=== PATIENT | male | born 1940 | race Caucasian/White ===

== ENCOUNTER 2019-06-04 10:02 | Emergency (ER) | payer MEDICARE, OTHER, SELFPAY ==
--- NOTE | ~2019-06-04 | CT_ITS ---
EXAMINATION: CT lumbar spine wo [facility] EXAM DATE: 06/04/2019 12:07 INDICATION: Fall, right hip and low back pain. TECHNIQUE: Spiral CT lumbar spine was performed without contrast. Axial, coronal and sagittal images were reviewed. The dose-length product (DLP) for this examination was 202.74 mGy-cm. The exposure w as tailored according to patient size (auto mA exposure control), and iterative reconstruction (ASIR) was used as additional dose reduction technique. There is no prior study for comparison. FINDINGS: There is moderate lumbar dextroscoliosis. There is about 8 mm right lateral subluxation L3 on L4. There is moderate to severe disc disease from L1 through L4, moderate at L4-5. No spondylolys is. There are no bony erosions identified. Advanced lumbar facet arthropathy. Sacroiliac joints are i ntact. There is no evidence of acute lumbar fracture or spondylolysis. There is no disc space widen ing or traumatic vertebral body subluxation suspected. Paraspinal soft tissue is unremarkable. A det paulino level by level evaluation of spondylosis can be added as addendum if requested. IMPRESSION: 1. No acute lumbar fracture. 2. Moderate dextroscoliosis. 3. Advanced spondylosis. Reviewed, dictated and finalized at location A. TH SANITARIAN
--- NOTE | ~2019-06-04 | XR_ITS ---
EXAMINATION: XR hip BI 2V w AP pelvis EXAM DATE: 06/04/2019 10:56 INDICATION: Multiple falls at home, right hip worse than left pain. TECHNIQUE: Frontal projection pelvis. Frontal projection right hip, frontal projection left hip, frog -leg projection left hip, crosstable lateral projection right hip. There are no prior studies for com parison. FINDINGS: There are no acute pelvic or hip fractures or dislocations identified. There is no subcuta neous gas. The soft tissue is unremarkable. There are no radiopaque foreign bodies. There is mode rate symmetric bilateral hip primary osteoarthritis. IMPRESSION: No acute osseous findings. Reviewed, dictated and finalized at location A. [facility] IMPRESSION: No acute osseous findings.
[2019-06-04 10:02] VITALS: BP 147/76; PULSE 79; RESP 18; TEMP 36.8; O2SAT 99
--- NOTE | 2019-06-04 10:09 | ED.GENADULT ---
HPI - General Adult General Chief complaint: Extremity Injury, Lower Stated complaint: hip pain Time Seen by Provider: 06/04/19 10:03 Source: patient Mode of arrival: ambulatory Limitations: no limitations History of Present Illness HPI narrative: Patient is a 78-year-old male who presents to emergency department for evaluation of injuries related to a ground-level fall that occurred on Tuesday was ambulating with his walker when he fell to his side and has since had moderate aching pain to the right hip worse with ambulation activity and movement. Patient denies head injury syncope loss of consciousness. Patient notes he has skin tears to the left upper extremity with minimal pain at this location. Patient notes that the pain radiates down to the level of the knee from the right hip. Patient notes he has been able to bear weight with pain since the fall. Patient denies any head injury or other complaints at this time and on arrival per EMS is in the room in no distress Related Data Home Medications Medication Instructions Recorded Confirmed PreserVision AREDS-2 2 tablet PO BID 04/29/19 05/22/19 alprazolam 0.5 mg PO TID 04/29/19 05/22/19 levothyroxine 100 mcg PO DAILY 04/29/19 05/22/19 losartan 100 mg PO DAILY 04/29/19 05/22/19 pravastatin 10 mg PO DAILY 04/29/19 05/22/19 Allergies Allergy/AdvReac Type Severity Reaction Status Date / Time 1. ANTIHISTAMINES Allergy Unknown Unknown Uncoded 06/04/19 10:07 NKFA Allergy Unknown Unknown Uncoded 06/04/19 10:07 Review of Systems Review of Systems: All systems reviewed & are unremarkable except as noted in HPI and below PMFSH Family History Family History Mother Lung cancer Father Heart disease Sibling Lung cancer Brain cancer Social History Social History Social History: The patient lives with his of 52 years in [place]. 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 He continues to smoke 1 pack of cigarettes per day for the last 62 years. He drinks 2-3 shots of hard liquor every night. He denies any illicit substance use. Primary care physician: Dr. Nicole Stewart Code status: Per EMR full code Smoking packs per day: 1 Smoking cigarettes per day: 20.0 Years smoked: 62 Smoking pack-years: 62.00 Smoking status: Current every day smoker Tobacco type: cigarettes Alcohol intake: current Drinks per week: 7 Substance use: never Gender identity (if verbalized by the patient): Male Spiritual care concerns: No Agree to blood products: Yes Exam Narrative: Exam Narrative: GENERAL: Well-appearing, well-nourished, and in no acute distress. HEAD: Normocephalic, atraumatic. EYES: PERRLA and EOMI. ENT: Nares clear, no rhinorrhea or epistaxis. Mucous membranes moist. Oropharynx without tonsillar hypertrophy exudate or other lesions. NECK: Supple. No adenopathy or masses. CHEST: Clear to auscultation. No respiratory distress. No wheezes rales or rhonchi HEART: Regular rate and rhythm. No murmur heard. Normal peripheral pulses. ABDOMEN: Soft, nontender, nondistended EXTREMITIES: Tenderness of the right hip pelvis palpated and stable. No midline cervical thoracic or lumbar tenderness SKIN: Warm, dry, no rash. Superficial skin tears to the left upper extremity at the level of the elbow NEURO: No focal deficits. Alert and oriented x3. Cranial nerves II through XII grossly intact. Neurovascularly intact PSYCH: Normal mood and affect. Course Course Emergency Course: Patient and family in the room aware of case findings treatment plan and diagnosis agreeing to plan for hospice at home patient was evaluated and set up by case work and hospice patient had PT OT eval in the emergency department Vital Signs Vital signs: Vital Signs Temperature 98.3 F 06/04/19 10:02 Pulse Rate 79 06/04/19 10:02 Respiratory Rate 18 06/04/19 10:
[2019-06-04 11:52] LABS: Basophils Percent Auto 0.2 % (0.2-1.2); Eosinophils Percent Auto 0.3 % (0-4.4); Hematocrit 37.5 % (42.0-52.0); Hemoglobin 12.4 g/dL (14.0-18.0); Immature Granulocyte Absolute 0.05 K/mm3 (0.00-0.031); Immature Granulocyte Percent A 0.5 % (0-0.5); Lymphocytes Absolute Auto 1.04 K/mm3 (0.9-3.2); Lymphocytes Percent Auto 9.4 % (18.3-44.2); Mean Corpuscular HGB Conc 33.1 g/dl (32-36); Mean Corpuscular Hemoglobin 32.8 pg (26-34); Mean Corpuscular Volume 99.2 fl (80-100); Monocytes Absolute Auto 1.5 K/mm3 (0.1-0.6); Monocytes Percent Auto 13.2 % (2.6-8.5); Neutrophils Absolute Auto 8.5 K/mm3 (1.3-6.7); Neutrophils Percent Auto 76.4 % (45.5-73.1); Platelet Count Result 256 k/mm3 (150-375); Red Blood Count 3.78 M/mm3 (4.6-6.20); Red Cell Distribution Width 13.1 % (11.5-14.5); White Blood Count 11.1 K/mm3 (4.5-10.0)
[2019-06-04 12:02] LABS: Blood Urea Nitrogen 20 mg/dL (9-20); Calcium 9.5 mg/dL (8.4-10.2); Carbon Dioxide 25 mmol/L (22-30); Chloride 102 mmol/L (98-107); Estimated Glomerular Filt Rate > 60; Glucose 127 mg/dL (75-110); Potassium 3.9 mmol/L (3.4-5.0); Sodium 136 mmol/L (137-145)
[2019-06-04 12:09] VITALS: BP 113/50; PULSE 96; RESP 18; O2SAT 74
--- NOTE | 2019-06-04 12:19 | PC.NURSE ---
pt cannot get to sitting position without severe pain to rt groin/rt hip area. pt reports only minor discomfort when at rest
--- NOTE | 2019-06-04 12:26 | PC.NURSE ---
Contacted Care Coordination for placement of [facility]. Family requesting placement.
[2019-06-04 12:38] LABS: Add Urine Microscopic? YES; Appearance Urine Clear (Clear); Bacteria Urine Trace /hpf; Bilirubin Urine Negative (Negative); Blood Urine Negative (Negative); Color Urine Amber (Yellow); Glucose Urine UA Negative (Negative); Ketones Urine Negative (Negative); Leukocyte Esterase Ur Negative LEU/UL (Negative); Mucus Urine Rare /lpf; Nitrate Urine Negative (Negative); Protein Urine 1+ mg/dL (Negative); Specific Grav Ur 1.026 (1.001-1.035); WBC Urine 0-3 /hpf
--- NOTE | 2019-06-04 15:36 | PC.NURSE ---
Hospice rep has arrived at this time.
--- NOTE | 2019-06-04 16:57 | PC.NURSE ---
Called [facility] to transport pt home. ETA [id number]. Trip# [id number]
[2019-06-04 17:51] VITALS: BP 116/60; PULSE 74; RESP 18; O2SAT 96
== END 2019-06-04 17:53 | disposition hospice, home (50) ==
PROVIDERS: Emergency Medicine Emergency Medical Services; Emergency Provider Family Medicine; PCP Family Medicine Adolescent Medicine
DX: M25.551 Pain in right hip (principal); F17.210 Nicotine dependence, cigarettes, uncomplicated; M47.816 Spondylosis without myelopathy or radiculopathy, lumbar region; W18.39XA Other fall on same level, initial encounter
CPT/HCPCS: 36415; 72131; 73521; 80048; 81001; 85025; 97161; 97165; 99284; A9270

== ENCOUNTER 2019-06-08 19:32 | HOS | payer OTHER, MEDICARE, SELFPAY ==
[2019-06-08 19:30] VITALS: BP 129/67; PULSE 77; RESP 18; TEMP 37.4; O2SAT 98; BMI 19.1
[2019-06-08 22:36] VITALS: PULSE 68
[2019-06-08] MEDS: GABAPENTIN 300 MG CAPSULE PO (22:36)
[2019-06-08] MEDS: ALPRAZOLAM 0.5 MG TABLET PO (22:36)
[2019-06-08] MEDS: METOPROLOL TARTRATE 25 MG TABLET PO (22:36)
[2019-06-08] MEDS: BISACODYL 5 MG TABLET EC 10 MG PO (22:36)
[2019-06-08] MEDS: APIXABAN 2.5 MG TABLET PO (22:37)
[2019-06-08] MEDS: LACTULOSE 20 GM/30 ML UDC 40 GM PO (22:37)
[2019-06-08] MEDS: SENNOSIDES 8.6 MG TABLET 17.2 MG PO (22:37)
[2019-06-08] MEDS: OPTI-GEN TAB 1 TABLET PO (22:38)
[2019-06-08] MEDS: METHYLNALTREXONE 12 MG/0.6 ML VIAL SUB-Q (22:38)
[2019-06-08] MEDS: KETOROLAC 30 MG/ML VIAL (*BKC) 60 MG IV PUSH (22:39)
[2019-06-09] MEDS: GABAPENTIN 300 MG CAPSULE PO ×2 (05:39→14:01)
[2019-06-09] MEDS: ALPRAZOLAM 0.5 MG TABLET PO ×2 (05:39→14:01)
[2019-06-09] MEDS: LEVOTHYROXINE SODIUM 100 MCG TABLET PO (05:39)
--- NOTE | 2019-06-09 08:40 | PM.IMHP ---
H&P: HPI History of Present Illness Chief complaint: [facility], Intrac. Hip Pain, COPD Narrative: Edin Nguyen is a 78 year old male was recently admitted to hospice after being hospitalized for pneumonia and mycobacteria sputum. He was experiencing pain and dyspnea. He has lost significant amount of weight over the last few years. Unknown how much in the last 6-12 months but thinks is considerable period he eats only 1 meal a day and most. He is much weaker than he had been. About 6 days ago he developed pain in his right hip and buttock region. Worse with movement or weight-bearing. The gradually improved but recurred on the left side. No tingling or numbness. Severe pain with any movement her weight-bearing. Unable to get out of bed. Had not had a bowel movement for least 5 days. No nausea or vomiting. No fevers or chills. No abnormal bleeding. Appetite worse. Review of Systems Review of Systems: All systems reviewed & are unremarkable except as noted in HPI and below PMFSH Past Medical History Medical History (Updated 06/09/19 @ 09:00 by Chris Elizalde MD) Arthritis Depression with anxiety Essential hypertension Hypothyroid Osteoarthritis involving multiple joints on both sides of body Osteopenia Noted on prior x-rays Paroxysmal atrial fibrillation Pneumonia Surgical History Surgical History History of cholecystectomy History of colonoscopy with polypectomy Initial colonoscopy with polypectomy in 2002, repeat colonoscopy in 2007 without evidence of colon polyps but had diverticulosis Hx of cervical spine surgery C5-6 and 7 spinal fusion. 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 Family History Family History Mother Lung cancer Father Heart disease Sibling Lung cancer Brain cancer Social History Social History (Updated 06/09/19 @ 09:01 by Chris Elizalde MD) Social History: Resides with his Smoking packs per day: 1 Smoking cigarettes per day: 20.0 Years smoked: 62 Smoking pack-years: 62.00 Smoking status: Current every day smoker Tobacco type: cigarettes Alcohol intake: current Drinks per week: 7 Substance use: never Gender identity (if verbalized by the patient): Male Spiritual care concerns: No Agree to blood products: Yes Meds Home Medications and Allergies Home Medications Medication Instructions Recorded Confirmed Type PreserVision AREDS-2 2 tablet PO BID 04/29/19 05/22/19 History alprazolam 0.5 mg PO TID 04/29/19 05/22/19 History levothyroxine 100 mcg PO DAILY 04/29/19 05/22/19 History losartan 100 mg PO DAILY 04/29/19 05/22/19 History pravastatin 10 mg PO DAILY 04/29/19 05/22/19 History amiodarone [Pacerone] 200 mg PO BID 30 Days #60 tablet 05/04/19 05/22/19 Rx apixaban [Eliquis] 2.5 mg PO Q12HR 30 Days #60 tablet 05/04/19 05/22/19 Rx magnesium oxide 400 mg PO QAM 30 Days #30 tablet 05/04/19 05/22/19 Rx metoprolol tartrate 25 mg PO Q12HR 30 Days #60 tablet 05/04/19 05/22/19 Rx Allergies Allergy/AdvReac Type Severity Reaction Status Date / Time 1. ANTIHISTAMINES Allergy Unknown Unknown Uncoded 06/04/19 10:07 NKFA Allergy Unknown Unknown Uncoded 06/04/19 10:07 Vital Signs Vital Signs - 24 hr 06/08/19 19:30 06/08/19 22:36 Temperature 99.4 F Pulse Rate 77 68 Respiratory Rate 18 Blood Pressure 129/67 Pulse Oximetry 98 Exam Narrative: Exam Narrative: SKIN: Soft the left heel. Large vesicle with ecchymosis and softening of the right heel. HEENT: EOMI, PERRL, pharyngeal mucosa pink and intact NECK: No JVD, adenopathy, or thyromegaly CHEST: Increased anterior-posterior diameter with diminished breath sounds throughout. HEART: NL S1/S2, regular, no murmur ABDOMEN: BS+, soft, nontender, no mass, no bruits EXTREMITIES: No cyanosis, edema, or clubbing NEUROLOGI
[2019-06-09 09:06] VITALS: BP 111/60; PULSE 68; RESP 16; O2SAT 98
[2019-06-09] MEDS: NICOTINE (*PBKC) 21 MG PATCH 1 PATCH TRANSDERM (09:09)
[2019-06-09] MEDS: NAPROXEN 500 MG TABLET PO ×2 (09:09→17:08)
[2019-06-09 09:12] VITALS: PULSE 68
[2019-06-09] MEDS: AMIODARONE HCL 200 MG TABLET PO (09:12)
[2019-06-09] MEDS: PANTOPRAZOLE 40 MG TABLET PO (09:26)
[2019-06-09] MEDS: LOSARTAN POTASSIUM 100 MG TABLET PO (09:26)
[2019-06-09] MEDS: OPTI-GEN TAB 1 TABLET PO (09:26)
[2019-06-09 09:27] VITALS: PULSE 68
[2019-06-09] MEDS: METOPROLOL TARTRATE 25 MG TABLET PO (09:27)
[2019-06-09] MEDS: PYRAZINAMIDE 500 MG TABLET 2000 MG PO (09:27)
[2019-06-09] MEDS: ISONIAZID 100 MG TABLET 300 MG PO (09:28)
[2019-06-09] MEDS: APIXABAN 2.5 MG TABLET PO (09:28)
[2019-06-09] MEDS: ETHAMBUTOL HCL 400 MG TABLET 1200 MG PO (09:36)
[2019-06-09] MEDS: rifAMPin 300 MG CAPSULE 600 MG PO (09:37)
[2019-06-09] MEDS: ASPIRIN 81 MG ENTERIC TABLET PO (11:18)
[2019-06-09] MEDS: MAGNESIUM OXIDE 400 MG TABLET PO (11:18)
[2019-06-09 14:00] VITALS: BP 117/59; PULSE 65; RESP 18; TEMP 36.4; O2SAT 96
--- NOTE | 2019-06-09 14:26 | PM.DS ---
DS: Diagnosis Admitting Diagnosis Admitting Diagnosis: Encounter for palliative care Discharge Diagnosis (1) Palliative care by specialist: Code(s): Z51.5 - Encounter for palliative care Status: Acute Assessment and Plan: Requires general inpatient status due to uncontrolled pain and anxiety related to that as well as obstipation with associated abdominal discomfort Palliative regimen for both musculoskeletal and neuropathic pain ordered including Toradol naproxen gabapentin methadone and hydromorphone Bowel regimen ordered including methylnaltrexone lactulose Dulcolax and senna. Discussed with the and patient at bedside, monitor response to regimen today and anticipate discharge back home tomorrow. Did not wish to pursue placement in a facility. Patient and wished to go home today as his pain was controlled and his bed was fixed. (2) Sciatica: Code(s): M54.30 - Sciatica, unspecified side Status: Acute (3) COPD (chronic obstructive pulmonary disease): Qualifiers: COPD type: unspecified COPD Qualified Code(s): J44.9 - Chronic obstructive pulmonary disease, unspecified Code(s): J44.9 - Chronic obstructive pulmonary disease, unspecified Status: Acute (4) Essential hypertension: Code(s): I10 - Essential (primary) hypertension Status: Acute (5) Paroxysmal atrial fibrillation: Code(s): I48.0 - Paroxysmal atrial fibrillation Status: Acute (6) Hypothyroid: Qualifiers: Hypothyroidism type: unspecified Qualified Code(s): E03.9 - Hypothyroidism, unspecified Code(s): E03.9 - Hypothyroidism, unspecified Status: Acute (7) Tobacco dependence due to cigarettes: Code(s): F17.210 - Nicotine dependence, cigarettes, uncomplicated Status: Acute DS: Summary Hospital Course Reason for hospitalization: hip pain Hospital Course: see h/p Time Spent with Patient Time attestation: Total time spent providing and/or coordinating discharge services: 30 min Exam Narrative: Exam Narrative: See H/p Discharge Plan Discharge Attending physician on discharge: Chris Elizalde Discharging Clinician: Chris Elizalde Patient Disposition: Hospice - Home Activity: as tolerated Diet: as tolerated Stand Alone Forms: General Discharge Information Discharge Medications: New methadone 5 mg tablet 2.5 mg PO BID Qty: 8 RF: 0 hydromorphone 4 mg tablet 4 mg PO Q4H PRN (Reason: pain) Qty: 20 RF: 0 sennosides [Senokot] 8.6 mg Tablet 17.2 mg PO Q12HR Qty: 20 RF: 0 bisacodyl 10 mg Suppository 10 mg [place] QID PRN (Reason: Constipation) Qty: 0 RF: 0 gabapentin [Neurontin] 300 mg Capsule 300 mg PO Q8HR Qty: 12 RF: 0 isoniazid 100 mg Tablet 300 mg PO QAM Qty: 0 RF: 0 pyrazinamide 500 mg Tablet 2,000 mg PO QAM Qty: 0 RF: 0 rifampin 300 mg Capsule 600 mg PO DAILY Qty: 0 RF: 0 acetaminophen 500 mg tablet 1,000 mg PO TID Qty: 60 RF: 0 ethambutol [Myambutol] 400 mg Tablet 1,200 mg PO QAM Qty: 0 RF: 0 Continued levothyroxine 100 mcg tablet 100 mcg PO DAILY RF: 0 PreserVision AREDS-2 [id number] Capsule 2 tablet PO BID RF: 0 Eliquis 2.5 mg Tablet 2.5 mg PO Q12HR 30 Days Qty: 60 RF: 0 metoprolol tartrate 25 mg Tablet 25 mg PO Q12HR 30 Days Qty: 60 RF: 0 Changed alprazolam 0.5 mg tablet 0.5 mg PO TID PRN (Reason: Anxiety) Qty: 0 RF: 0 Discontinued losartan 100 mg tablet 100 mg PO DAILY RF: 0 pravastatin 10 mg Tablet 10 mg PO DAILY RF: 0 amiodarone [Pacerone] 200 mg Tablet 200 mg PO BID 30 Days Qty: 60 RF: 0 magnesium oxide 400 mg (241.3 mg magnesium) Tablet 400 mg PO QAM 30 Days Qty: 30 RF: 0 Date of admission: 06/08/19 19:32 Primary Care Provider: Je Black Admitting Provider: Chris Elizalde Attending physician on admission: Chris Elizalde
--- NOTE | 2019-06-09 18:26 | PC.NURSE ---
1825 Discharged home with [facility], awake, alert, and oriented times person and place, no complaints.
== END 2019-06-09 18:27 | disposition hospice, home (50) | DRG 192 ==
PROVIDERS: Admitting Provider Internal Medicine; PCP Family Medicine Adolescent Medicine; Visit Provider Internal Medicine
DX: J44.9 Chronic obstructive pulmonary disease, unspecified (principal); Z51.5 Encounter for palliative care; I10 Essential (primary) hypertension; M54.30 Sciatica, unspecified side; E03.9 Hypothyroidism, unspecified; I48.0 Paroxysmal atrial fibrillation; F41.8 Other specified anxiety disorders; M19.90 Unspecified osteoarthritis, unspecified site; M85.80 Other specified disorders of bone density and structure, unspecified site; F17.210 Nicotine dependence, cigarettes, uncomplicated; Z90.49 Acquired absence of other specified parts of digestive tract; Z98.1 Arthrodesis status
CPT/HCPCS: A9270; J1885; J2212

== ENCOUNTER 2021-01-19 10:10 | Outpatient (CLI) | payer OTHER, MEDICARE, SELFPAY ==
[2021-01-19 10:43] LABS: Albumin Level 4.1 g/dL (3.5-5.1)
[2021-01-19 11:18] LABS: Thyroid Stimulating Hormone 0.666 uIU/mL (0.465-4.680)
== END 2021-01-19 10:11 | disposition home or self-care (01) ==
PROVIDERS: PCP Family Medicine Adolescent Medicine; Visit Provider Internal Medicine Adolescent Medicine
DX: E43 Unspecified severe protein-calorie malnutrition (principal); E03.9 Hypothyroidism, unspecified
CPT/HCPCS: 36415; 82040; 84443

== ENCOUNTER 2021-08-27 03:58 | Inpatient (IN) | payer MEDICARE, OTHER, SELFPAY ==
[2021-08-27] VITALS (23 sets, daily range): BP systolic 84–155; BP diastolic 42–88; PULSE 64–106; RESP 11–21; TEMP 36.3–37.2; O2SAT 87–100; BMI 16.9
--- NOTE | ~2021-08-27 | CT_ITS ---
EXAMINATION:CT diagnostic chest wo con DATE: 08/31/2021 09:55 INDICATION: Non-TB mycobacterial pneumonia. TECHNIQUE: Computed tomography (CT) of the chest was performed without intravenous contrast. Automate d exposure control and iterative reconstruction technique were employed. The dose-length product (DLP ) was 204.82 mGy-cm. COMPARISON: Chest CT 04/30/2019, chest single view 08/28/2021 FINDINGS: There is moderate emphysema. There is a 7.3 x 5.4 cm mass in right lung upper lobe. A porti on of the mass is chronic with parenchymal calcifications, consistent with old granulomatous disease. A portion of the mass has worsened from the prior CT and demonstrates areas of necrosis. There are d ependent groundglass opacities in left upper lobe, likely atelectasis. There is a chronic mass in lef t upper lobe with central calcifications, consistent with old granulomatous disease. There are small pleural effusions. The heart size is normal. There are coronary artery calcifications. No pericardial effusion. Calcified right hilar and mediastinal lymph nodes are consistent with old granulomatous di sease. There are changes of cholecystectomy. There is a 2.5 cm cyst in right kidney. There is moderat e thoracic spondylosis and severe lumbar spondylosis. IMPRESSION: 1. Worsened right upper lobe mass, likely a combination of acute necrotizing pneumonia and old granul omatous disease. 2. Moderate emphysema. 3. Small pleural effusions. Reviewed, dictated and finalized at location B. IMPRESSION: 1. Worsened right upper lobe mass, likely a combination of acute necrotizing pn eumonia and old granulomatous disease. 2. Moderate emphysema. 3. Small pleural effusions.
--- NOTE | ~2021-08-27 | XR_ITS ---
EXAMINATION: XR abdomen/kub 1V INDICATION: Ileus TECHNIQUE: Supine view of the abdomen is obtained. COMPARISON: CT, 08/27/2021 FINDINGS: The nasogastric tube is in the stomach. No dilated loops of bowel are identified. There are skin jose in the midline abdomen. There is severe osteoarthritis of the hips. Lumbar dextroscolio sis is noted. IMPRESSION: 1. Unremarkable abdominal radiograph. Reviewed, dictated and finalized at location A.
--- NOTE | ~2021-08-27 | XR_ITS ---
EXAMINATION: XR chest 1V portable DATE: 08/28/2021 15:07 INDICATION: Chest congestion. Fluid overload. TECHNIQUE: A single frontal view of the chest was obtained. COMPARISON: Chest 2 views 04/29/2019, chest CT 04/30/2019, CT abdomen and pelvis 08/27/2021 FINDINGS: There are lucencies in the lungs, consistent with emphysema. There are airspace opacities i n right upper lung zone. There is a chronic cavitary mass in left upper lobe. There is a diffuse inte rstitial pattern, consistent with mild pulmonary edema. No pleural effusion or pneumothorax. The hear t size is normal. The nasogastric tube tip is beyond the inferior margin of the radiograph, but at le ast to the stomach. IMPRESSION: 1. Mild pulmonary edema. 2. Worsened airspace opacities in right upper lung zone, consistent with pneumonia. Follow-up radiogr aphs are recommended to confirm improvement and exclude malignancy. 3. Chronic cavitary mass in left upper lobe, likely chronic infection. 4. Emphysema. Reviewed, dictated and finalized at location A. IMPRESSION: 1. Mild pulmonary edema. 2. Worsened airspace opacities in right upper lung zone, consistent with pneumo javi. Follow-up radiographs are recommended to confirm improvement and exclude m alignancy. 3. Chronic cavitary mass in left upper lobe, likely chronic infection. 4. Emphysema.
--- NOTE | ~2021-08-27 | CT_ITS ---
EXAMINATION: CT abdomen pelvis w con DATE: 08/27/2021 05:22 INDICATION: Right-sided abdominal pain for 2 hours. Nausea and vomiting. TECHNIQUE: Computed tomography (CT) of the abdomen and pelvis was performed with 100 CC Omnipaque 350 intravenous contrast. Automated exposure control and iterative reconstruction technique were employe d. Exam dose: 228.97 mGy-cm total exam DLP. COMPARISON: None. FINDINGS: Emphysematous changes are noted. There are several up to 5.5 mm nodular densities at the le ft lung base, left lower lobe. Normal heart size. No pericardial or pleural effusion. Scattered hepatic cysts, the largest measuring up to 2.4 cm. Status post cholecystectomy. This may account for mild bile duct prominence. Normal splenic size. No pancreatic mass lesion or calcification or pancreatic duct dilatation is evident. Normal morphology of the adrenal glands. No renal mass lesion or urinary tract calculus or hydroureteronephrosis. There is atherosclerotic calcification of the abdominal aorta and at the origins of the celiac and [place] perior mesenteric and renal arteries. No abdominal aortic aneurysm. No intraperitoneal or retroperito nava or pelvic mass lesion or adenopathy is noted. There appears to be a dilated appendix measuring up to 11 mm diameter with thickening of the wall in the right lower quadrant. There is mild ascites and increased density in the mesentery suggesting inf lammation. Mild intraperitoneal free air is noted. Perforated appendix with diffuse peritonitis is [place] ggested. Diffuse osteopenia. There is prominent dextroscoliosis of the lower thoracic and lumbar spine severe multilevel degenerative disc disease of the lumbar spine. Bilateral hip osteoarthritis. IMPRESSION: Perforated appendicitis with diffuse peritonitis and mild intraperitoneal free air Status post cholecystectomy Hepatic cysts Emphysema Nonspecific up to 5.5 mm left lower lobe pulmonary nodular densities Reviewed, dictated and finalized at [facility]. Reviewed, dictated and finalized at [facility]. IMPRESSION: Perforated appendicitis with diffuse peritonitis and mild intraper itoneal free air Status post cholecystectomy Hepatic cysts Emphysema Nonspecific up to 5.5 mm left lower lobe pulmonary nodular densities
--- NOTE | 2021-08-27 04:05 | ED.ABDPAIN ---
HPI - Abdominal Pain General Chief Complaint: Abdominal Pain Stated Complaint: rlq abd pain since 0200 Source: RN notes reviewed History of Present Illness HPI narrative: Patient presents emergency department from home via EMS for abdominal pain. Patient states that pain began approximately 2 AM this morning. The pain is located in the right side the abdomen does not radiate. Described as sharp and stabbing. Associate with nausea. Patient denies any vomiting or diarrhea. He denies any fevers or chills chest pain or shortness of breath. States his gave him some pain medication at home but is unsure of the name of the medication Related Data Home Medications Medication Instructions Recorded Confirmed PreserVision AREDS-2 2 tablet PO BID 04/29/19 07/07/21 donepezil 10 mg tablet 10 mg PO QHS 07/07/21 07/07/21 ibuprofen 600 mg tablet 600 mg PO BID tablet 07/07/21 07/07/21 levothyroxine 100 mcg tablet 50 mcg PO DAILY tablet 07/07/21 07/07/21 metoprolol tartrate 25 mg tablet 25 mg PO DAILY tablet 07/07/21 07/07/21 mirtazapine 30 mg tablet 30 mg PO QHS 07/07/21 07/07/21 aspirin 325 mg PO DAILY 08/27/21 Allergies Allergy/AdvReac Type Severity Reaction Status Date / Time 1. ANTIHISTAMINES Allergy Unknown Unknown Uncoded 07/07/21 10:20 NKFA Allergy Unknown Unknown Uncoded 07/07/21 10:20 Review of Systems Review of Systems: Gen.: Denies fevers or chills ENT: Denies congestion Respiratory: Denies shortness of breath or cough CV: Denies chest pain or palpitations GI: See HPI denies burning, urgency, frequency or hematuria Musculoskeletal: Denies back pain or muscle pain Neuro: Denies numbness, tingling, weakness or focal weakness Skin: Denies rash Except as documented, all other systems reviewed and negative PMF Past Medical History Medical History Arthritis Depression with anxiety Essential hypertension Hypothyroid Osteoarthritis involving multiple joints on both sides of body Osteopenia Noted on prior x-rays Paroxysmal atrial fibrillation Pneumonia Surgical History Surgical History (Updated 07/06/21 @ 08:03 by Je Black MD) History of cholecystectomy 1993 History of colonoscopy with polypectomy Initial colonoscopy with polypectomy in 2002, repeat colonoscopy in 2007 without evidence of colon polyps but had diverticulosis Hx of cervical spine surgery C5-6 and 7 spinal fusion. 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 Family History Family History (Updated 07/06/21 @ 08:04 by Je Black MD) Mother Lung cancer Father Heart disease Acute myocardial infarction Sibling Lung cancer Brain cancer Social History Social History Social History: Resides with his Smoking packs per day: 1 Smoking cigarettes per day: 20.0 Years smoked: 62 Smoking pack-years: 62.00 Smoking status: Current every day smoker Tobacco type: cigarettes Second hand tobacco smoke exposure: Yes Alcohol intake: never Substance use: never Substance use type: does not use Gender identity (if verbalized by the patient): Male Sexual Orientation (if Verbalized by the Patient): Straight or Heterosexual Spiritual care concerns: No Agree to blood products: Yes Exam Narrative: APPEARANCE: No acute distress, nontoxic, resting in bed HEENT: Normocephalic, atraumatic, OMM RESPIRATORY: No respiratory distress, clear to auscultation bilaterally with no rhonchi wheezing or rales CARDIOVASCULAR: RRR s murmur ABDOMINAL: Soft, nondistended tender palpation right lower quadrant and right upper quadrant no tenderness left lower quadrant left lower quadrant no rebound or guarding MUSCULOSKELETAl: Moves all extremities. No clubbing, cyanosis or edema. NEURO: Awake and alert. Following commands, speech normal, no focal deficits SK
[2021-08-27] MEDS: MORPHINE SULFATE (*CRX) 4 MG/ML INJ 2 MG IV PUSH (04:20)
[2021-08-27] MEDS: SODIUM CHLORIDE 0.9% IV 1,000 ML 999 ML IV CONT ×2 (04:22→06:49)
[2021-08-27] MEDS: ONDANSETRON INJ 4 MG/2 ML VIAL IV PUSH (04:22)
[2021-08-27 04:42] LABS: Basophils Percent Auto 0.1 % (0.2-1.2); Eosinophils Absolute Auto 0.2 K/mm3 (0-0.3); Eosinophils Percent Auto 1.7 % (0-4.4); Hematocrit 44.5 % (42.0-52.0); Hemoglobin 14.7 g/dL (14.0-18.0); Immature Granulocyte Absolute 0.04 K/mm3 (0.00-0.031); Immature Granulocyte Percent A 0.3 % (0-0.5); Lymphocytes Percent Auto 13.3 % (18.3-44.2); Mean Corpuscular Hemoglobin 31.6 pg (26-34); Mean Corpuscular Volume 95.7 fl (80-100); Mean Platelet Volume 8.8 fl (7.4-10.4); Monocytes Absolute Auto 0.6 K/mm3 (0.1-0.6); Monocytes Percent Auto 4.5 % (2.6-8.5); Neutrophils Absolute Auto 10.9 K/mm3 (1.3-6.7); Neutrophils Percent Auto 80.1 % (45.5-73.1); Platelet Count Result 287 k/mm3 (150-375); Red Blood Count 4.65 M/mm3 (4.6-6.20); Red Cell Distribution Width 12.3 % (11.5-14.5); White Blood Count 13.6 K/mm3 (4.5-10.0)
[2021-08-27 04:51] LABS: Alanine Aminotransferase 18 U/L (6-50); Albumin Level 4.3 g/dL (3.5-5.1); Alkaline Phosphatase 87 U/L (38-126); Anion Gap 6 mmol/L (8-16); Aspartate Amino Transferase 64 U/L (17-59); Bilirubin,Total 0.3 mg/dL (0.2-1.3); Blood Urea Nitrogen 29 mg/dL (9-20); Calcium 9.1 mg/dL (8.4-10.2); Carbon Dioxide 25 mmol/L (22-30); Chloride 108 mmol/L (98-107); Estimated CRCL calculation 30 ml/min; Estimated Glomerular Filt Rate 58; Glucose 114 mg/dL (65-110); Lipase 46 U/L (23-300); Potassium 3.9 mmol/L (3.4-5.0); Sodium 139 mmol/L (137-145)
[2021-08-27 05:12] LABS: Appearance Urine Clear (Clear); Bilirubin Urine Negative (Negative); Blood Urine Negative (Negative); Color Urine Yellow (Yellow); Glucose Urine UA Negative (Negative); Ketones Urine 1+ mg/dL (Negative); Leukocyte Esterase Ur Negative LEU/UL (Negative); Nitrate Urine Negative (Negative); Protein Urine Trace mg/dL (Negative); Urobilinogen Urine 0.2 mg/dL (<2.0)
[2021-08-27 05:17] LABS: RBC Urine 0-2 /hpf (0-2); WBC Urine 0-3 /hpf
[2021-08-27 05:18] LABS: Add Urine Microscopic? YES
--- NOTE | 2021-08-27 06:47 | PC.NURSE ---
Dr Wynne at bedside to evaluate pt
[2021-08-27 07:07] LABS: INR 1.1; Prothrombin Time 13.5 Seconds (11.1-14.7)
[2021-08-27 07:08] LABS: Partial Thromboplastin Time 26.9 SECONDS (22.3-36.8)
--- NOTE | 2021-08-27 07:09 | PM.IMHP ---
H&P: HPI History of Present Illness Date/Time: 08/27/21 07:09 Chief Complaint: Right lower quadrant abdominal pain Narrative: The patient is an 80-year-old man who has some degree of cognitive impairment either aphasia or dementia. He began having right lower quadrant abdominal pain around midnight to 1:00 a.m. today. His gave him some of his hydromorphone that he takes chronically but this did not help. The pain was persistent and he came to the emergency room. He was noted to have an acute surgical abdomen with diffuse tenderness especially in the right lower quadrant. The abdomen is rigid with guarding. CT scan of the abdomen pelvis was done and showed diffuse peritonitis with quite a bit of ascites and free intraperitoneal air. The appendix was dilated and enhanced. There was loculated fluid around the appendix. Perforated appendicitis with free perforation is considered most likely diagnosis. Patient was seen in the emergency room and is now taken to surgery emergently for perforated bowel. Patient is a long-term smoker and known to have COPD. 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 He has chronic back pain and takes hydromorphone twice a day for this. He is extremely thin with a BMI of 16.6. He has hypothyroidism and thyroid medication is being adjusted. He has not had any fever chills vomiting or nausea. He was not in any respiratory distress in the emergency room. Review of Systems Review of Systems: All systems reviewed & are unremarkable except as noted in HPI and below Constitutional: Constitutional: Denies chills, Denies fever(s), Reports poor appetite and Reports weight loss Cardiovascular: Cardiovascular: Denies chest pain, Denies diaphoresis, Denies dyspnea and Denies paroxysmal nocturnal dyspnea Respiratory: Respiratory: Reports as per HPI, Denies chest congestion, Denies cough, Denies dyspnea and Reports dyspnea on exertion Gastrointestinal: Gastrointestinal: Reports as per HPI, Reports abdominal pain and Reports constipation Integumentary/Breasts: Skin/Breast: Denies lesions and Denies rash PMFSH Past Medical History Medical History Arthritis Depression with anxiety Essential hypertension Hypothyroid Osteoarthritis involving multiple joints on both sides of body Osteopenia Noted on prior x-rays Paroxysmal atrial fibrillation Pneumonia Surgical History Surgical History History of cholecystectomy 1993 History of colonoscopy with polypectomy Initial colonoscopy with polypectomy in 2002, repeat colonoscopy in 2007 without evidence of colon polyps but had diverticulosis Hx of cervical spine surgery C5-6 and 7 spinal fusion. 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 Family History Family History Mother Lung cancer Father Heart disease Acute myocardial infarction Sibling Lung cancer Brain cancer Social History Social History Social History: Resides with his Smoking packs per day: 1 Smoking cigarettes per day: 20.0 Years smoked: 62 Smoking pack-years: 62.00 Smoking status: Current every day smoker Tobacco type: cigarettes Second hand tobacco smoke exposure: Yes Alcohol intake: never Substance use: never Substance use type: does not use Gender identity (if verbalized by the patient): Male Sexual Orientation (if Verbalized by the Patient): Straight or Heterosexual Spiritual care concerns: No Agree to blood products: Yes Meds Home Medications and Allergies Home Medications Medication Instructions Recorded Confirmed Type PreserVision AREDS-2 2 tablet PO BID 04/29/19 07/07/21 History acetaminophen 1,000 mg PO TID #60 tablet 06/09/19 07/07/21 Rx bisacodyl 10 mg HI QID P
--- NOTE | 2021-08-27 07:23 | WPDANESEPPF ---
Anes - Initial Pre Proc Eval Procedure: Operation Date: 08/27/21 08:00 Proposed Procedures p Exploratory Laparotomy For Small Bowel Perforation - Fran Wynne MD Date/Time: 08/27/21 07:23 Surgeon: Fran Wynne MD Pre Op Diagnosis: rlq abd pain since 199 Patient Data Age: 80 Gender: M Height: 1.7 m Weight: 48 kg Last Vital Signs Temp 36.8 C 08/27/21 04:00 Pulse 83 08/27/21 06:39 Resp 16 08/27/21 06:39 BP 98/55 L 08/27/21 06:39 Pulse Ox 94 08/27/21 06:39 Allergies Allergy/AdvReac Type Severity Reaction Status Date / Time 1. ANTIHISTAMINES Allergy Unknown Unknown Uncoded 07/07/21 10:20 NKFA Allergy Unknown Unknown Uncoded 07/07/21 10:20 Home Medications Medication Instructions Recorded Confirmed Type PreserVision AREDS-2 2 tablet PO BID 04/29/19 07/07/21 History acetaminophen 1,000 mg PO TID #60 tablet 06/09/19 07/07/21 Rx bisacodyl 10 mg IN QID PRN #0 ea 06/09/19 07/07/21 Rx sennosides [Senokot] 17.2 mg PO Q12HR #20 tablet 06/09/19 07/07/21 Rx alprazolam 0.5 mg tablet 0.5 mg PO TID PRN #270 tablet 04/27/21 07/07/21 Rx donepezil 10 mg tablet 10 mg PO QHS 07/07/21 07/07/21 History ibuprofen 600 mg tablet 600 mg PO BID tablet 07/07/21 07/07/21 History levothyroxine 100 mcg tablet 50 mcg PO DAILY tablet 07/07/21 07/07/21 History metoprolol tartrate 25 mg tablet 25 mg PO DAILY tablet 07/07/21 07/07/21 History mirtazapine 30 mg tablet 30 mg PO QHS 07/07/21 07/07/21 History gabapentin 300 mg capsule 300 mg PO TID #270 cap 08/11/21 Rx methadone 10 mg tablet 10 mg PO Q12H #60 tablet 08/24/21 Rx aspirin 325 mg PO DAILY 08/27/21 History Laboratory Tests 08/27/21 08/27/2122 04:35 04:35 04:35 WBC 13.6 K/mm3 H K/mm3 (4.5-10.0) RBC 4.65 M/mm3 M/mm3 (4.6-6.20) Hgb 14.7 g/dL g/dL (14.0-18.0) Hct 44.5 % % (42.0-52.0) MCV 95.7 fl fl (80-100) MCH 31.6 pg pg (26-34) MCHC 33.0 g/dl g/dl (32-36) RDW 12.3 % % (11.5-14.5) Plt Count 287 k/mm3 k/mm3 (150-375) MPV 8.8 fl fl (7.4-10.4) Immature Gran % (Auto) 0.3 % % (0-0.5) Neut % (Auto) 80.1 % H % (45.5-73.1) Lymph % (Auto) 13.3 % L % (18.3-44.2) [place] % (Auto) 4.5 % % (2.6-8.5) Eos % (Auto) 1.7 % % (0-4.4) Baso % (Auto) 0.1 % L % (0.2-1.2) Lymph # (Auto) 1.80 K/mm3 K/mm3 (0.9-3.2) [place] # (Auto) 0.6 K/mm3 K/mm3 (0.1-0.6) Eos # (Auto) 0.2 K/mm3 K/mm3 (0-0.3) Baso # (Auto) 0.0 K/mm3 K/mm3 (0.0-0.1) Abs Immat Gran (auto) 0.04 K/mm3 H K/mm3 (0.00-0.031) Absolute Neuts (auto) 10.9 K/mm3 H K/mm3 (1.3-6.7) Absolute Nucleated RBC 0.0 K/mm3 K/mm3 (0.0-0.012) Nucleated RBC % 0.0 % % (0.0-0.2) PT INR APTT Sodium 139 mmol/L mmol/L (137-145) Potassium 3.9 mmol/L mmol/L (3.4-5.0) Chloride 108 mmol/L H mmol/L (98-107) Carbon Dioxide 25 mmol/L mmol/L (22-30) Anion Gap 6 mmol/L L mmol/L (8-16) BUN 29 mg/dL H mg/dL (9-20) Creatinine 1.20 mg/dL mg/dL (0.7-1.3) Estim Creat Clear Calc 30 ml/min ml/min Estimated GFR 58 L (59 - ) Glucose 114 mg/dL H mg/dL (65-110) Lactic Acid 2.0 mmol/L mmol/L (0.7-2.0) Calcium 9.1 mg/dL mg/dL (8.4-10.2) Total Bilirubin 0.3 mg/dL mg/dL (0.2-1.3) AST 64 U/L H U/L (17-59) ALT 18 U/L U/L (6-50) Alkaline Phosphatase 87 U/L U/L (38-126) Total Protein 8.0 g/dL g/dL (6.3-8.2) Albumin 4.3 g/dL g/dL (3.5-5.1) Lipase 46 U/L U/L (23-300) Urine Color Urine Appearance Urine pH Ur Specific [place] Urine Protein Urine Glucose (UA)
[2021-08-27] MEDS: LACTATED RINGERS 1,000 ML 30 ML IV CONT ×2 (07:37→09:01)
--- NOTE | 2021-08-27 07:57 | SUR.PREOP ---
[address] Zepeda states ok to proceed. OR aware of medication history entered by ED staff and today medication given noted in EMR by ED staff, patient in extreme pain no hair removal done
--- NOTE | 2021-08-27 08:45 | P.OP_ITS ---
Procedure Note - Detailed Date of Procedure 08/27/21 Pre-op Diagnosis Bowel perforation, pneumoperitoneum Post-op Diagnosis Other (Ruptured appendicitis with generalized peritonitis, free perforation) Procedure Performed Appendectomy Surgeon Fran Wynne MD Guitar Repair Technician Thalia Goldstein, SERGEI Anesthesia General Indications Patient developed right lower quadrant abdominal pain very early this morning. He has multiple medical problems. The pain got worse over time he came to the emergency room. He had an acute surgical abdomen. CT scan showed extensive ascites and pneumoperitoneum. There was suggestion of appendicitis with perforation. He is taken to surgery now emergently for laparotomy for bowel perforation. Findings Patient briefly dropped his blood pressure into the 40s after induction of anesthesia. This responded quickly and later in the surgery pressors were able to be stopped. He did have a free perforation at the base of his appendix. There was extensive ascites and some fecal spillage. No other significant findi ngs were noted Description of Procedure Patient was taken to surgery and induced into general anesthesia. The abdomen is prepped and draped. He had an episode of hypotension requiring pressors which responded promptly. Please see anesthesia notes. Incision was made in the midline starting just above the umbilicus and extending to the lower abdom en. We dissected through the fascia and entered the peritoneal cavity. Bowel was obviously inflamed and there was some ascites. A large Herbert wound guard was then placed. Exploration was carried out and the ascites was suctioned away. Findings were as above. Nasogastric tube was positioned appropriately in the stomach. The appendix was mobilized. The mesoappendix was dissected. Base of the mesoappendix was doubly clamped divided and ligated with 3-0 Vicryl ties. I then further mobilized the appendix to its junction with the cecum. The perforation involve the base of the appendix such that a cuff of cecum would need to be taken to ensure adequate removal. A TLC 55 stapler was then brought into the wound. I stapled across the cecum such that the entire appendix was able to removed including the entire perforation. The appendix was then removed. I examined the staple line. There was no bleeding. It was quite intact. We then irrigated the abdomen thoroughly with 3 L of warm saline. Minimal if any peritoneal exudate was left. The abdominal contents were then placed back in their general anatomic location. The Herbert wound guard was removed. The surgical team changed outer gloves. The peritoneum was closed with 3-0 Vicryl running suture up to the semicircular line. The midline fascia was closed with bidirectional running 1. PDS suture. The skin was loosely a pproximated with wide jose. Xeroform gauze, fluffs and Medipore tape were used to dress the incision. The patient was awakened and taken to recovery in good condition. Sponge and needle counts were correct x2. Estimated Blood Loss -10 Drains Yes (NG tube, Quiroz catheter) Packing No Pathology Yes (Appendix) Complications No immediate complications Condition Critical Disposition PACU
[2021-08-27] MEDS: fentaNYL CITRATE INJ (*CRX) 100 MCG/2 ML VIAL 25 MCG IV PUSH (09:32)
--- NOTE | 2021-08-27 10:27 | ADMGEN ---
This patient, Edin Nguyen, was admitted to Intensive Care Unit-9 at 1013. Patient/family oriented to hospital policies and general routines including ID bracelet, bed and alarms, visiting hours, pain management, procedures, bathroom and other care routines, personal items, smoking policy, room service/diet, and visiting hours. Information on how to activate the Rapid Response Team has been discussed. Patient/Family are encouraged to report perceived risks to care and to ask questions if they do not understand what they are told or what they should do.
[2021-08-27] MEDS: LACTATED RINGERS 1,000 ML 125 ML IV CONT ×2 (10:43→17:57)
--- NOTE | 2021-08-27 11:13 | WPDCNINT ---
Assessment and Plan Assessment and plan (1) Dementia: Code(s): F03.90 - Unspecified dementia without behavioral disturbance Status: Chronic Assessment and Plan: Hold Aricept at this time (2) Acute perforated appendicitis: Code(s): K35.32 - Acute appendicitis with perforation and localized peritonitis, without abscess Status: Acute Assessment and Plan: Status post ex lap and appendectomy General surgery in the room to review patient's surgical wound and changing dressing NPO NG tube in place (3) Sepsis: Code(s): A41.9 - Sepsis, unspecified organism Status: Acute Assessment and Plan: Secondary to perforated appendicitis and peritonitis Received 4 L of IV fluids and will continue IV fluids at this time Continue Zosyn Blood cultures have been sent Add Diflucan Has not required vasopressors this time His lactic acid was 2.0 (4) Peritonitis: Code(s): K65.9 - Peritonitis, unspecified Status: Acute Assessment and Plan: See above (5) Paroxysmal atrial fibrillation: Code(s): I48.0 - Paroxysmal atrial fibrillation Status: Chronic Assessment and Plan: Currently in sinus rhythm. Not on anticoagulation at baseline hold at Hold aspirin due to postop status (6) Hypothyroid: Qualifiers: Hypothyroidism type: unspecified Qualified Code(s): E03.9 - Hypothyroidism, unspecified Code(s): E03.9 - Hypothyroidism, unspecified Status: Chronic Assessment and Plan: Continue levothyroxine IV at 50% office regular does (7) Tobacco abuse: Code(s): Z72.0 - Tobacco use Status: Acute Assessment and Plan: Patient shows no interest in quitting smoking and request nicotine patch while he is in the hospital and cannot smoke (8) Mycobacterial infection, non-TB: Code(s): A31.9 - Mycobacterial infection, unspecified Status: Acute Assessment and Plan: On last hospitalization patient was suspected of having TB. His sputum stain was positive for AFB and he was started on 4 drug therapy by Infectious Disease. 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 His treatment was discontinued patient was on hospice hence it appears that further workup or treatment was not pursued. Patient later came out of hospice but it seems that the issue was never re-evaluated on revisit. Will consult gut puller. Additional Plan DVT prophylaxis -Lovenox Stress ulcer prophylaxis -Pepcid Nutrition -NPO Code Status - Full Code Updated patient's and daughter at bedside answered all their questions Total Critical Care Time - 40 minutes Due to a high probability of clinically significant, life threatening deterioration, the patient required my highest level of preparedness to intervene emergently and I personally spent this critical care time directly and personally managing the patient. This critical care time included obtaining a history; examining the patient; pulse oximetry; ordering and review of studies; arranging urgent treatment with development of a management plan; evaluation of patient's response to treatment; frequent reassessment; and discussions with other providers. It was exclusive of separately billable procedures and treating other patients and teaching time. Please see Assessment and Plan section and the rest of the note for further information on patient assessment and treatment Washtub Worker Consult Note Consult date: 08/27/21 HPI: Edin Nguyen is a 80 year old male with past medical history of severe COPD, continued smoking, dementia, macular degeneration who presented today to ER with chief complaint abdominal pain. Patient is a poor historian although he is awake and states he has pain he is unable to provide any meaningful history. History was provided by his at bedside. She states the patient woke up with pain and was pointing towards right side of h
[2021-08-27] MEDS: NICOTINE (*PBKC) 14 MG PATCH 1 PATCH TRANSDERM (11:36)
--- NOTE | 2021-08-27 13:36 | PM.CNPUL ---
Assessment and Plan Assessment and plan (1) Mycobacterial infection, non-TB: Code(s): A31.9 - Mycobacterial infection, unspecified Status: Acute Assessment and Plan: 80-year-old man with severe radiographic emphysema, bilateral apical infiltrates with some cavitation 1st detected on a chest CT approximately 2 years ago, grew mycobacterial Xenopi in 05/07, received treatment with 4 antibiotics presumably for Tuberculosis, subsequently discontinue the antibiotics when on palliative hospice care and following microbiological identification of the non tuberculous mycobacterial infection. patient has multiple other problems including dementia and according to his he he has no history to suggest acute respiratory infection. I would recommend to repeat chest CT and re-culture sputum for non tuberculous mycobacteria. Depending upon the results of chest CT and sensitivity of non tuberculous mycobacteria will decide whether treatment with multiple antibiotics will offer any benefit to this individual considering other comorbidities. the plan was discussed with the patient's who was agreeable with further assessment regarding non tuberculous mycobacterial infection. (2) Tobacco abuse: Code(s): Z72.0 - Tobacco use Status: Acute (3) Peritonitis: Code(s): K65.9 - Peritonitis, unspecified Status: Acute (4) Dementia: Code(s): F03.90 - Unspecified dementia without behavioral disturbance Status: Chronic (5) COPD (chronic obstructive pulmonary disease): Qualifiers: COPD type: unspecified COPD Qualified Code(s): J44.9 - Chronic obstructive pulmonary disease, unspecified Code(s): J44.9 - Chronic obstructive pulmonary disease, unspecified Status: Chronic History of Present Illness History of Present Illness Consult date: 08/28/21 Chief complaint: rlq abd pain since 0200 Narrative: This 80-year-old man presented with chief complaint of abdominal pain. The patient was diagnosed with acute appendicitis and has undergone surgery for appendectomy. He is currently the intensive care unit. The patient has history of dementia and is a poor historian. I was asked see the patient regarding previous history of non tuberculous mycobacteria. Most information for this report was obtained after talking to the intensive, reviewing patient's radiographic studies and medical records and also talking to the patient's . in April of 2019, the patient was hospitalized with pneumonia. Chest CT showed bilateral apical infiltrates with some cavitation especially in the left upper lobe. Sputum culture grew non tuberculous mycobacteria, Xenopi. in addition to bilateral infiltrates the chest CT showed severe centrilobular emphysema. No antibiotic sensitivity is available. According to the patient's , the patient was started on for antibiotics for possible mycobacterial tuberculosis. Specifically prior to the identification of the mycobacteria, he received ethambutol, isoniazid, pyrazinamide and rifampin at the recommendation of the Infectious Disease entry level sales consultant. Reportedly the patient discontinued the antibiotics after a short period of time and after the cultures showed non tuberculosis mycobacteria. Since then there has been no other chest imaging study to assess for possible progression of the bilateral apical infiltrates. The patient has a long history of smoking, 62 pack year, has chronic cough with some sputum production. Per he has no other respiratory symptoms such as fever night sweats or hemoptysis. 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
[2021-08-27] MEDS: MORPHINE SULFATE (*CRX) 4 MG/ML INJ IV PUSH ×2 (14:38→16:39)
--- NOTE | 2021-08-27 16:29 | PM.IMCN ---
Assessment and Plan Assessment and plan (1) Intestinal perforation: Code(s): K63.1 - Perforation of intestine (nontraumatic) Status: Acute Assessment and Plan: Edin Nguyen is a 80 year old male patient 80-year-old male with history of COPD unfortunately patient continued to smoke, and dementia and 1 time patient was in hospice and brought emergency department from home with right-sided abdominal pain, CT scan of the abdomen showed Perforated appendicitis with diffuse peritonitis and mild intraperitoneal free air, patient was seen by general surgeon was taken to OR emergently and surgical repair, currently patient is somber unable to provide, most of the history is from the electronic chart and discussing with electronics worker we have been consulted by the Dr. Wynne general surgeon for medical management, we thank you and follow the patient with you. 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 patient be seen body recall instructor and further recommendation to follow (3) Sepsis: Code(s): A41.9 - Sepsis, unspecified organism Status: Acute Assessment and Plan: patient with sepsis most likely secondary to perforated appendicitis being treated with Zosyn will follow on blood culture HPI Data of Consult Consult date: 08/27/21 Requesting Physician: Fran Wynne MD Primary Care Provider: Je Black MD Consult Narrative Narrative: Edin Nguyen is a 80 year old male patient 80-year-old male with history of COPD unfortunately patient continued to smoke, and dementia and 1 time patient was in hospice and brought emergency department from home with right-sided abdominal pain, CT scan of the abdomen showed Perforated appendicitis with diffuse peritonitis and mild intraperitoneal free air, patient was seen by general surgeon was taken to OR emergently and surgical repair, currently patient is somber unable to provide, most of the history is from the electronic chart and discussing with electronics worker we have been consulted by the Dr. Wynne general surgeon for medical management, we thank you and follow the patient with you. 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 Family History Family History Mother Lung cancer Father Heart disease Acute myocardial infarction Sibling Lung cancer Brain cancer Social History Social History Social History: Resides with his Smoking packs per day: 1 Smoking cigarettes per day: 20.0 Years smoked: 62 Smoking pack-years: 62.00 Smoking status: Current every day smoker Tobacco type: cigarettes Second hand tobacco smoke exposure: Yes Alcohol intake: never Substance use: former Substance use type: does not use Gender identity (if verbalized by the patient): Male Sexual Orientation (if Verbalized by the Patient): Straight or Heteros
[2021-08-27] MEDS: FAMOTIDINE 20 MG/2 ML VIAL IV PUSH (21:00)
[2021-08-28] VITALS (21 sets, daily range): BP systolic 87–167; BP diastolic 43–91; PULSE 46–128; RESP 12–28; TEMP 36.6–37.2; O2SAT 92–100; BMI 16.7
[2021-08-28] MEDS: LACTATED RINGERS 1,000 ML 125 ML IV CONT (04:00)
[2021-08-28 04:25] LABS: Hematocrit 36.8 % (42.0-52.0); Hemoglobin 12.1 g/dL (14.0-18.0); Mean Corpuscular HGB Conc 32.9 g/dl (32-36); Mean Corpuscular Hemoglobin 31.7 pg (26-34); Mean Corpuscular Volume 96.3 fl (80-100); Mean Platelet Volume 9.4 fl (7.4-10.4); Platelet Count Result 168 k/mm3 (150-375); Red Blood Count 3.82 M/mm3 (4.6-6.20); Red Cell Distribution Width 12.4 % (11.5-14.5); White Blood Count 13.9 K/mm3 (4.5-10.0)
[2021-08-28 04:36] LABS: Alanine Aminotransferase 20 U/L (6-50); Albumin Level 2.9 g/dL (3.5-5.1); Alkaline Phosphatase 52 U/L (38-126); Anion Gap 4 mmol/L (8-16); Aspartate Amino Transferase 48 U/L (17-59); Bilirubin,Total 0.3 mg/dL (0.2-1.3); Blood Urea Nitrogen 21 mg/dL (9-20); Calcium 7.6 mg/dL (8.4-10.2); Carbon Dioxide 22 mmol/L (22-30); Chloride 110 mmol/L (98-107); Estimated CRCL calculation 36 ml/min; Estimated Glomerular Filt Rate > 60; Glucose 90 mg/dL (65-110); Magnesium 1.7 mg/dL (1.6-2.3); Phosphorus 3.4 mg/dL (2.5-4.5); Potassium 4.4 mmol/L (3.4-5.0); Sodium 136 mmol/L (137-145)
[2021-08-28] MEDS: LEVOTHYROXINE SODIUM INJ 100 MCG/5 ML VIAL 25 MCG IV PUSH (05:21)
[2021-08-28] MEDS: MORPHINE SULFATE (*CRX) 2 MG/ML INJ IV PUSH (06:54)
[2021-08-28] MEDS: MAGNESIUM SULF 2 GM/WATER 50ML 2 GM/50 ML BAG IVPB (07:28)
[2021-08-28] MEDS: DEXTROSE 5%/0.45% SOD CHL 1,000 ML 50 ML IV CONT (08:13)
[2021-08-28] MEDS: ENOXAPARIN 40 MG/0.4 ML SYRINGE SUB-Q (08:15)
[2021-08-28] MEDS: CALCIUM GLUC 2,000 MG/NS 100ML 2,000 MG/100 ML BAG 100 MG IVPB (08:15)
[2021-08-28] MEDS: NICOTINE (*PBKC) 14 MG PATCH 1 PATCH TRANSDERM (08:15)
[2021-08-28] MEDS: FAMOTIDINE 20 MG/2 ML VIAL IV PUSH ×2 (08:15→21:04)
--- NOTE | 2021-08-28 09:19 | WPDANESPN ---
Anes - Prog Note Post-Op Date/Time: 08/28/21 09:19 Cardiovascular status: normal Respiratory status: normal Airway patency: baseline Mental status: baseline Post-Op hydration status: normal Vital Signs: Last Vital Signs Temp 36.6 C 08/28/21 08:00 Pulse 71 08/28/21 08:00 Resp 21 H 08/28/21 08:00 BP 109/45 L 08/28/21 08:00 Pulse Ox 92 08/28/21 08:00 Pain Score (VAS): 01/25 I/O: Intake & Output 08/27/21 08/28/21 08/28/21 23:59 07:59 15:59 Intake Total 1250 1200 Output Total 500 275 Balance 750 925 Laboratory Tests 08/28/21 04:13 08/28/21 04:13 08/28/21 08/28/21 04:13 04:13 WBC 13.9 H RBC 3.82 L Hgb 12.1 L Hct 36.8 L MCV 96.3 MCH 31.7 MCHC 32.9 RDW 12.4 Plt Count 168 MPV 9.4 Sodium 136 L Potassium 4.4 Chloride 110 H Carbon Dioxide 22 Anion Gap 4 L BUN 21 H Creatinine 1.00 Estim Creat Clear Calc 36 Estimated GFR > 60 Glucose 90 Calcium 7.6 L Phosphorus 3.4 Magnesium 1.7 Total Bilirubin 0.3 AST 48 ALT 20 Alkaline Phosphatase 52 Total Protein 6.0 L Albumin 2.9 L Microbiology 08/27/21 06:46 Blood Blood Culture - Preliminary 08/27/21 06:46 Blood Blood Culture - Preliminary Post-procedural complaints: none Patient Feedback: Patient satisfied with anesthetic care. Other Findings: NG
[2021-08-28] MEDS: MORPHINE SULFATE (*CRX) 4 MG/ML INJ IV PUSH (09:33)
--- NOTE | 2021-08-28 10:07 | WPDINTPN ---
Progress Note: A&P Assessment and Plan (1) Acute perforated appendicitis: Code(s): K35.32 - Acute appendicitis with perforation and localized peritonitis, without abscess Status: Acute Assessment and Plan: Status post ex lap and appendectomy General surgery following and managing patient's surgical wound NPO NG tube in place Pain control with IV p.r.n. morphine (2) Sepsis: Code(s): A41.9 - Sepsis, unspecified organism Status: Acute Assessment and Plan: Secondary to perforated appendicitis and peritonitis Received 4 L of IV fluids and will continue IV fluids at this time although change to D5 0.45 NS Continue Zosyn Blood cultures have been sent and are pending Continue Diflucan Has not required vasopressors this time His lactic acid was 2.0 (3) Peritonitis: Code(s): K65.9 - Peritonitis, unspecified Status: Acute Assessment and Plan: See above (4) Paroxysmal atrial fibrillation: Code(s): I48.0 - Paroxysmal atrial fibrillation Status: Chronic Assessment and Plan: Currently in sinus rhythm. Not on anticoagulation at baseline Hold aspirin due to postop status. Resumption per General surgery (5) Hypothyroid: Qualifiers: Hypothyroidism type: unspecified Qualified Code(s): E03.9 - Hypothyroidism, unspecified Code(s): E03.9 - Hypothyroidism, unspecified Status: Chronic Assessment and Plan: Continue levothyroxine IV at 50% office regular does (6) Tobacco abuse: Code(s): Z72.0 - Tobacco use Status: Acute Assessment and Plan: Patient shows no interest in quitting smoking and request nicotine patch while he is in the hospital and cannot smoke (7) Mycobacterial infection, non-TB: Code(s): A31.9 - Mycobacterial infection, unspecified Status: Acute Assessment and Plan: On last hospitalization patient was suspected of having TB. His sputum stain was positive for AFB and he was started on 4 drug therapy by Infectious Disease. 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 His treatment was discontinued patient was on hospice hence it appears that further workup or treatment was not pursued. Patient later came out of hospice but it seems that the issue was never re-evaluated on revisit. Consult her eight section blower Patient was seen by eight section blower and he had detailed discussion with patient's . Plans to obtain a CT scan prior to discharge but his is not interested in any extensive treatment for it considering his current status, overall prognosis and goals of care (8) Dementia: Code(s): F03.90 - Unspecified dementia without behavioral disturbance Status: Chronic Assessment and Plan: Aricept is on hold at this time (9) Electrolyte abnormality: Code(s): E87.8 - Other disorders of electrolyte and fluid balance, not elsewhere classified Status: Acute Assessment and Plan: Replace low calcium and magnesium Additional Plan DVT prophylaxis -Lovenox Stress ulcer prophylaxis -Pepcid Nutrition -NPO at this time Code Status - Full Code Incentive spirometry Transfer out of ICU today Subjective Date/time seen: 08/28/21 10:07 Overnight events reviewed. Afebrile No bowel movements He states he continues to have pain in abdomen which is 7/10. Able to give me any other details about the pain. He does admit to having nausea but no vomit. He denies any shortness of breath chest pain or fever. He is not passing any gas and has not had any bowel movements overnight. Patient continues to be pleasantly confused and is not oriented. Vitals acceptable and saturating well on room air Review of Systems Review of Systems: ROS unobtainable: Yes unobtainable due to mental status Exam Narrative: General: Pt is cachectic, old frail male in no acute distress Lungs/Chest: Trachea central Clear BS B/L, No crackles or wheezing.
[2021-08-28] MEDS: FLUCONAZOLE 200 MG/NACL 100 ML 200 MG/100 ML BAG 100 MG IVPB (12:45)
--- NOTE | 2021-08-28 12:55 | PM.PNGS ---
Progress Note: A&P Assessment and Plan (1) Acute appendicitis with generalized peritonitis, without gangrene or abscess: Code(s): K35.20 - Acute appendicitis with generalized peritonitis, without abscess Status: Acute Assessment and Plan: doing well status post open appendectomy with peritoneal washout done yesterday. Will transfer to intermediate care unit and get patient up today. Continue NPO and NG tube for expected postoperative ileus. (2) Sepsis: Code(s): A41.9 - Sepsis, unspecified organism Status: Acute Assessment and Plan: Improving, continue IV antibiotics. (3) Atrial fibrillation with controlled ventricular response: Code(s): I48.91 - Unspecified atrial fibrillation Status: Acute Assessment and Plan: In atrial fibrillation at this time. Will start metoprolol 5 mg q.6 hours and sent to monitored bed on intermediate care unit. (4) Tobacco abuse: Code(s): Z72.0 - Tobacco use Status: Acute Subjective Subjective Date/Time Seen: 08/28/21 12:55 Post Op day: 1 Patient reports: no new complaints, feels better, no flatus, no bowel movement and afebrile Review of Systems Review of Systems: All systems reviewed & are unremarkable except as noted in HPI and below Constitutional: Constitutional: Denies chills, Denies fever(s), Denies headache(s) and Denies night sweats Cardiovascular: Cardiovascular: Denies chest pain and Denies dyspnea Respiratory: Respiratory: Denies cough and Denies dyspnea Gastrointestinal: Gastrointestinal: Reports as per HPI, Reports abdominal pain, Denies heartburn, Denies nausea and Denies vomiting Exam Const: General: cooperative, comfortable, no acute distress, alert, awake and Physically active Nutritional Appearance: underweight Resp: Effort & Inspection: normal respiratory effort Auscultation: clear to auscultation bilaterally Cardio: Rate: regular rate and tachycardic ( 110-120 atrial fib by monitor) Rhythm: abnormal rhythm irregularly irregular GI: Inspection: non-distended, incision ( dry and healing well.) and scaphoid GI Palp: Yes Soft to palpation, Yes Tenderness to palpation present (GI), No Guarding due to palpation present (GI) and No Rebound tenderness present Auscultation: absent bowel sounds Extrem: General: no calf tenderness and no edema Objective Data Vital Signs Vital Signs: Vital Signs - 24 hr 08/27/21 13:56 08/27/21 14:00 08/27/21 15:25 Temperature Pulse Rate 67 65 67 Respiratory Rate 15 18 Blood Pressure 110/58 L Pulse Oximetry 100 100 08/27/21 16:00 08/27/21 18:00 08/27/21 20:00 Temperature 36.6 C 37.2 C Pulse Rate 68 64 65 Respiratory Rate 21 H 11 L 11 L Blood Pressure 106/63 96/48 L 84/42 L Pulse Oximetry 93 97 95 08/27/21 22:00 08/28/21 00:00 08/28/21 02:00 Temperature 37.0 C Pulse Rate 66 66 72 Respiratory Rate 11 L 16 20 Blood Pressure 94/49 L 101/44 L 98/50 L Pulse Oximetry 95 98 98 08/28/21 04:00 08/28/21 06:00 08/28/21 07:48 Temperature 37.2 C Pulse Rate 63 70 69 Respiratory Rate 12 15 18 Blood Pressure 87/43 L 115/46 L Pulse Oximetry 97 93 92 08/28/21 08:00 Temperature 36.6 C Pulse Rate 71 Respiratory Rate 21 H Blood Pressure 109/45 L Pulse Oximetry 92 Intake/Output Intake/Output: Intake & Output 08/25/21 08/26/21 08/27/21 08/28/21 23:59 23:59 23:59 23:59 Intake Total 1950 1200 Output Total 610 275 Balance 1340 925 Meds/Results Medications: Active Medications Generic Name Dose Route Start Last Admin Trade Name Freq PRN Reason Stop Dose Admin Enoxaparin Sodium 40 mg 08/28/21 09:00 08/28/21 08:15 Enoxaparin 40 Mg/0.4 Ml Syringe SUB-Q 40 mg DAILY KENZIE Administration Famotidine 20 mg 08/27/21 21:00 08/28/21 08:15 Famotidine 20 Mg/2 Ml Vial IV PUSH 20 mg Q12HR KENZIE Administration Piperacillin Sod/Tazobactam Sod 2.25 gm in 50 mls @ 100 mls/hr 08/27/21 12:00 08/28/21 06:14 Zosy
[2021-08-28] MEDS: METOPROLOL TARTRATE INJ 5 MG/5 ML VIAL IV PUSH (13:10)
[2021-08-28] MEDS: OLANZapine 10 MG INJ VIAL 5 MG IM (13:11)
[2021-08-28] MEDS: WATER, STERILE FOR INJECTION 10 ML VIAL XX (13:18)
[2021-08-28] MEDS: HYDROmorphone HCL INJ (*CRX) 1 MG/ML SYR 0.5 MG IV PUSH (14:12)
[2021-08-28] MEDS: LORazepam INJ (*CRX) 2 MG/ML VIAL IV PUSH (14:13)
[2021-08-28] MEDS: FUROSEMIDE INJ 40 MG/4 ML VIAL IV PUSH (14:30)
[2021-08-28] MEDS: dexmedeTOMIDine 400 MCG/100 ML 400 MCG/100 ML BAG 7.25 MCG IV CONT (15:25)
[2021-08-28 15:52] LABS: Alveolar/Arterial O2 Gradient 92.7 mmHg; Base Excess ABG -1.4 mEq/l (+/-2.0); Fractional Inspired Oxygen 28 %; HCO3 ABG 21.8 mEq/l (22.0-26.0); Oxygen Content ABG 17.4 %vol (16.0-22.0); Oxygen Saturation ABG 94.7 % (95.0-100.0); Oxyhemoglobin 93.7 % THb (90.0-100.0); PCO2 ABG 32.3 mmHg (35.0-45.0); PO2 ABG 68.8 mmHg (80.0-100.0); PO2 FiO2 Ratio Arterial Blood 2.46 %; Total Hemoglobin 13.2 g/dL (12.0-18.0); pH ABG 7.448 (7.350-7.450)
[2021-08-28 15:53] LABS: Device NASAL CANNULA; Modified Allen's Test Pass; Site Drawn LEFT RADIAL
--- NOTE | 2021-08-28 16:41 | PM.IMPN ---
Progress Note: A&P Assessment and Plan (1) Intestinal perforation: Code(s): K63.1 - Perforation of intestine (nontraumatic) Status: Deleted Assessment and Plan: Edin Nguyen is a 80 year old male patient 80-year-old male with history of COPD unfortunately patient continued to smoke, and dementia and 1 time patient was in hospice and brought emergency department from home with right-sided abdominal pain, CT scan of the abdomen showed Perforated appendicitis with diffuse peritonitis and mild intraperitoneal free air, patient was seen by general surgeon was taken to OR emergently and surgical repair, currently patient is somber unable to provide, most of the history is from the electronic chart and discussing with senior producer we have been consulted by the Dr. Wynne general surgeon for medical management, we thank you and follow the patient with you. 08/28/2021 interval history; patient with rupture appendix, status post open appendectomy with peritoneal washout POD#1, initially patient was clinically stable have seen by surgery service however later in the afternoon patient became quite agitated, patient was given Zyprexa, Ativan without any any relief, however patient continued to be agitated and was seen by senior producer patient is placed on Precedex, patient was also quite congested and wheezing patient was given IV Lasix 40 mg, patient with history of COPD, give the patient methylprednisone 125 mg X1, started the patient 60 mg q.6, will continue to monitor and further recommendation to follow. 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 patient be seen business info consultant and further recommendation to follow (3) Sepsis: Code(s): A41.9 - Sepsis, unspecified organism Status: Acute Assessment and Plan: patient with sepsis most likely secondary to perforated appendicitis being treated with Zosyn will follow on blood culture Subjective Date/time seen: 08/28/21 16:41 Edin Nguyen is a 80 year old male patient 80-year-old male with history of COPD unfortunately patient continued to smoke, and dementia and 1 time patient was in hospice and brought emergency department from home with right-sided abdominal pain, CT scan of the abdomen showed Perforated appendicitis with diffuse peritonitis and mild intraperitoneal free air, patient was seen by general surgeon was taken to OR emergently and surgical repair, currently patient is somber unable to provide, most of the history is from the electronic chart and discussing with senior producer we have been consulted by the Dr. Wynne general surgeon for medical management, we thank you and follow the patient with you. 08/28/2021 interval history; patient with rupture appendix, status post open appendectomy with peritoneal washout POD#1, initially patient was clinically stable have seen by surgery service however later in the afternoon patient became quite agitated, patient was given Zyprexa, Ativan without any any relief, however patient continued to be agitated and was seen by senior producer patient is placed on Precedex, patient was also quite congested and wheezing patient was given IV Lasix 40 mg, patient with history of COPD, give the patient methylprednisone 125 mg X1, started the patient 60 mg q.6, will continue to monitor and further recommendation to follow. Review of Systems Review of Systems: ROS unobtainable: Yes unobtainable due to medical condition and unobtainable due to mental status Exam Narrative: elderly frail Patient is comfortable, NAD HEENT: eyes are clear and none icteric, Dobbhoff in place LUNGS: normal respiratory effort ABD: not distended Lower extremities: no edema SKIN: nonjaundiced Neuro: grossly intact. Objective Data Vital Signs Vital Si
[2021-08-28] MEDS: methylPREDNISolone SOD SUCC 125 MG VIAL IV PUSH (18:59)
[2021-08-28] MEDS: methylPREDNISolone SOD SUCC 125 MG VIAL 60 MG IV PUSH (21:03)
[2021-08-29] VITALS (20 sets, daily range): BP systolic 106–154; BP diastolic 47–104; PULSE 45–85; RESP 16–25; TEMP 36.2–37.1; O2SAT 94–100
[2021-08-29] MEDS: dexmedeTOMIDine 400 MCG/100 ML 400 MCG/100 ML BAG 6.04 MCG IV CONT (00:39)
[2021-08-29] MEDS: methylPREDNISolone SOD SUCC 125 MG VIAL 60 MG IV PUSH ×5 (00:43→23:31)
[2021-08-29] MEDS: LEVOTHYROXINE SODIUM INJ 100 MCG/5 ML VIAL 25 MCG IV PUSH (05:26)
--- NOTE | 2021-08-29 08:19 | WPDINTPN ---
Progress Note: A&P Assessment and Plan (1) Acute perforated appendicitis: Code(s): K35.32 - Acute appendicitis with perforation and localized peritonitis, without abscess Status: Deleted Assessment and Plan: Status post ex lap and appendectomy General surgery following and managing patient's surgical wound NPO NG tube in place. Diet per General surgery Pain control with IV p.r.n. morphine (2) Sepsis: Code(s): A41.9 - Sepsis, unspecified organism Status: Acute Assessment and Plan: Secondary to perforated appendicitis and peritonitis Off IV fluids now Continue Zosyn and Diflucan Blood cultures have been sent and are negative till Has not required vasopressors this time His lactic acid was 2.0 (3) Peritonitis: Code(s): K65.9 - Peritonitis, unspecified Status: Deleted Assessment and Plan: See above (4) Paroxysmal atrial fibrillation: Code(s): I48.0 - Paroxysmal atrial fibrillation Status: Chronic Assessment and Plan: Currently in sinus rhythm. Not on anticoagulation at baseline Hold aspirin due to postop status. Resumption per General surgery (5) Hypothyroid: Qualifiers: Hypothyroidism type: unspecified Qualified Code(s): E03.9 - Hypothyroidism, unspecified Code(s): E03.9 - Hypothyroidism, unspecified Status: Chronic Assessment and Plan: Continue levothyroxine IV at 50% of regular does (6) Tobacco abuse: Code(s): Z72.0 - Tobacco use Status: Acute Assessment and Plan: Patient shows no interest in quitting smoking and request nicotine patch while he is in the hospital and cannot smoke (7) Mycobacterial infection, non-TB: Code(s): A31.9 - Mycobacterial infection, unspecified Status: Acute Assessment and Plan: On last hospitalization patient was suspected of having TB. His sputum stain was positive for AFB and he was started on 4 drug therapy by Infectious Disease. 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 His treatment was discontinued patient was on hospice hence it appears that further workup or treatment was not pursued. Patient later came out of hospice but it seems that the issue was never re-evaluated on revisit. Consult her salon coordinator Patient was seen by salon coordinator and he had detailed discussion with patient's . Plans to obtain a CT scan prior to discharge but his is not interested in any extensive treatment for it considering his current status, overall prognosis and goals of care (8) Dementia: Code(s): F03.90 - Unspecified dementia without behavioral disturbance Status: Chronic Assessment and Plan: Aricept is on hold at this time (9) Electrolyte abnormality: Code(s): E87.8 - Other disorders of electrolyte and fluid balance, not elsewhere classified Status: Acute Assessment and Plan: Improved calcium and magnesium after replacement (10) Pulmonary edema: Code(s): J81.1 - Chronic pulmonary edema Status: Acute Assessment and Plan: Yesterday patient had increased work of breathing and chest x-ray showed pulmonary edema Patient was given Lasix with good response On 2 L nasal cannula with no respiratory distress and no significant crackles exam (11) Delirium: Code(s): R41.0 - Disorientation, unspecified Status: Acute Assessment and Plan: Patient appears to have gone into delirium yesterday crease agitation confusion and he was pulling on lines and tubes trying to get out of bed. Patient was started on Precedex infusion and appears to have improved significantly. Although he still confuse he is much more calm this morning with improvement in heart rate and blood pressure Will wean off Precedex and possible Continue to monitor Avoid benzodiazepines Pain control with morphine Additional Plan DVT prophylaxis -Lovenox Stress ulcer prophylaxis -Pepci
[2021-08-29 08:25] LABS: Hematocrit 36.4 % (42.0-52.0); Hemoglobin 12.4 g/dL (14.0-18.0); Mean Corpuscular HGB Conc 34.1 g/dl (32-36); Mean Corpuscular Hemoglobin 31.6 pg (26-34); Mean Corpuscular Volume 92.9 fl (80-100); Mean Platelet Volume 9.8 fl (7.4-10.4); Platelet Count Result 182 k/mm3 (150-375); Red Blood Count 3.92 M/mm3 (4.6-6.20); Red Cell Distribution Width 12.4 % (11.5-14.5); White Blood Count 13.6 K/mm3 (4.5-10.0)
[2021-08-29 08:40] LABS: Alanine Aminotransferase 26 U/L (6-50); Albumin Level 3.2 g/dL (3.5-5.1); Alkaline Phosphatase 72 U/L (38-126); Anion Gap 8 mmol/L (8-16); Aspartate Amino Transferase 90 U/L (17-59); Bilirubin,Total 0.6 mg/dL (0.2-1.3); Blood Urea Nitrogen 27 mg/dL (9-20); Calcium 8.7 mg/dL (8.4-10.2); Carbon Dioxide 26 mmol/L (22-30); Chloride 108 mmol/L (98-107); Estimated CRCL calculation 37 ml/min; Estimated Glomerular Filt Rate > 60; Glucose 113 mg/dL (65-110); Phosphorus 2.1 mg/dL (2.5-4.5); Potassium 2.3 mmol/L (3.4-5.0); Sodium 142 mmol/L (137-145)
[2021-08-29] MEDS: NICOTINE (*PBKC) 14 MG PATCH 1 PATCH TRANSDERM (08:40)
[2021-08-29] MEDS: ENOXAPARIN 40 MG/0.4 ML SYRINGE SUB-Q (08:40)
[2021-08-29] MEDS: FAMOTIDINE 20 MG/2 ML VIAL IV PUSH ×2 (08:40→20:50)
[2021-08-29] MEDS: FLUCONAZOLE 200 MG/NACL 100 ML 200 MG/100 ML BAG 100 MG IVPB (08:43)
[2021-08-29] MEDS: POTASSIUM CHLORIDE 20 MEQ PACKET (FOR LIQUID) 40 MEQ FEED TUBE (09:47)
[2021-08-29] MEDS: POTASSIUM CHLORIDE INJ 40 MEQ in SODIUM CHLORIDE 0.9% IV 500 ML 130 MEQ IVPB (09:48)
[2021-08-29] MEDS: POTASSIUM PHOS,M-BASIC-D-BASIC 20 MMOL in SODIUM CHLORIDE 0.9% IV 250 ML 64.17 MMOL IVPB (11:16)
--- NOTE | 2021-08-29 11:34 | PM.PNGS ---
Progress Note: A&P Assessment and Plan (1) Acute appendicitis with generalized peritonitis, without gangrene or abscess: Qualifiers: Appendicitis perforation presence: with perforation Qualified Code(s): K35.20 - Acute appendicitis with generalized peritonitis, without abscess Code(s): K35.20 - Acute appendicitis with generalized peritonitis, without abscess Status: Acute Assessment and Plan: Patient's mental status is improved today. Will try transfer to intermediate care unit again. DC Quiroz catheter. He still has a dynamic ileus due to perforated appendicitis with generalized peritonitis. Leave NG tube and keep NPO except ice chips again today. Recheck labs and exam again tomorrow. He is actually doing pretty well. (2) Atrial fibrillation with controlled ventricular response: Code(s): I48.91 - Unspecified atrial fibrillation Status: Acute Assessment and Plan: Heart rate better today. (3) Pulmonary edema: Qualifiers: Chronicity: acute Qualified Code(s): J81.0 - Acute pulmonary edema Code(s): J81.1 - Chronic pulmonary edema Status: Acute Assessment and Plan: Pulmonary consultation appreciated (4) Dementia: Qualifiers: Dementia type: unspecified type Dementia behavioral disturbance: without behavioral disturbance Qualified Code(s): F03.90 - Unspecified dementia without behavioral disturbance Code(s): F03.90 - Unspecified dementia without behavioral disturbance Status: Chronic Subjective Subjective Date/Time Seen: 08/29/21 11:34 Post Op day: 2 Patient reports: no new complaints, pain is less, no flatus and no bowel movement Interval history: Patient did not transfer to IMU yesterday as he became very confused later in the day. He is really back to baseline today he does have some dementia and aphasia at baseline. Review of Systems Review of Systems: ROS unobtainable: Yes unobtainable due to medical condition Exam Const: General: cooperative, comfortable, no acute distress, alert and awake Nutritional Appearance: underweight Orientation/consciousness: Other orientation findings ( tells me he has aphasia) Limitations: physical limitations GI: Inspection: non-distended and incision (Pre dry and healing well) GI Palp: Yes Firmness to palpation present (GI) and Yes Tenderness to palpation present (GI) (Some tenderness, not severe) Auscultation: absent bowel sounds Objective Data Vital Signs Vital Signs: Vital Signs - 24 hr 08/28/21 12:00 08/28/21 12:45 08/28/21 13:10 Temperature 37.0 C Pulse Rate 126 H 69 119 H Respiratory Rate 19 20 Blood Pressure 108/75 Pulse Oximetry 93 100 08/28/21 14:00 08/28/21 15:25 08/28/21 16:00 Temperature 36.9 C 36.6 C Pulse Rate 128 H 117 H 126 H Respiratory Rate 22 H 24 H 19 Blood Pressure 167/91 H 87/49 L Pulse Oximetry 92 93 08/28/21 18:00 08/28/21 20:00 08/28/21 20:35 Temperature 36.8 C Pulse Rate 88 61 52 L Respiratory Rate 20 15 14 Blood Pressure 87/49 L 109/51 L Pulse Oximetry 99 96 100 08/28/21 20:58 08/28/21 21:02 08/28/21 22:00 Temperature Pulse Rate 60 53 L 53 L Respiratory Rate 16 16 13 Blood Pressure 140/56 L Pulse Oximetry 95 96 08/28/21 22:19 08/28/21 22:53 08/29/21 00:00 Temperature 36.6 C Pulse Rate 46 L 65 76 Respiratory Rate 13 18 20 Blood Pressure 129/73 Pulse Oximetry 96 08/29/21 02:00 08/29/21 02:30 08/29/21 04:00 Temperature Pulse Rate 72 45 L 70 Respiratory Rate 18 20 Blood Pressure 132/80 139/77 Pulse Oximetry 96 94 08/29/21 04:28 08/29/21 06:00 08/29/21 06:21 Temperature 36.2 C L Pulse Rate 50 L 81 67 Respiratory Rate 25 H Blood Pressure 106/47 L Pulse Oximetry 97 08/29/21 06:47 08/29/21 06:54 08/29/21 08:00 Temperature 37.1 C Pulse Rate 50 L 59 L 68 Respiratory Rate 21 H Blood Pressure 132/50 L Pulse Oximetry 100 08/29/21 10:00 08/29/21
[2021-08-29] MEDS: METOPROLOL TARTRATE INJ 5 MG/5 ML VIAL IV PUSH ×2 (15:55→20:53)
[2021-08-29] MEDS: MORPHINE SULFATE (*CRX) 4 MG/ML INJ IV PUSH (21:06)
--- NOTE | 2021-08-29 23:01 | PC.NURSE ---
08/29/21 at 2250-Pt continuously attempting to pull at NG and lines, attempting to climb out of bed. before school babysitter alerted staff that the Pt was climbing out of bed. Staff found the Pt sideways in bed with his legs thrown over the side rails. A large skin tear noted to Pt's Rt upper arm. Pt hitting and kicking at staff when attempting to reorient and placed Pt back into bed appropriately. Dr. Chavez notified and bilateral soft wrist restraints ordered. Will continue to monitor Pt closely.
[2021-08-30] VITALS (15 sets, daily range): BP systolic 94–157; BP diastolic 50–86; PULSE 47–72; RESP 14–24; TEMP 36.1–37.6; O2SAT 94–97
[2021-08-30] MEDS: METOPROLOL TARTRATE INJ 5 MG/5 ML VIAL IV PUSH (03:20)
[2021-08-30] MEDS: MORPHINE SULFATE (*CRX) 4 MG/ML INJ IV PUSH (03:26)
[2021-08-30] MEDS: methylPREDNISolone SOD SUCC 125 MG VIAL 60 MG IV PUSH ×4 (05:21→23:21)
[2021-08-30] MEDS: LEVOTHYROXINE SODIUM INJ 100 MCG/5 ML VIAL 25 MCG IV PUSH (05:30)
[2021-08-30 06:30] LABS: Hematocrit 34.2 % (42.0-52.0); Hemoglobin 11.6 g/dL (14.0-18.0); Mean Corpuscular HGB Conc 33.9 g/dl (32-36); Mean Corpuscular Hemoglobin 31.7 pg (26-34); Mean Corpuscular Volume 93.4 fl (80-100); Mean Platelet Volume 9.9 fl (7.4-10.4); Platelet Count Result 179 k/mm3 (150-375); Red Blood Count 3.66 M/mm3 (4.6-6.20); Red Cell Distribution Width 12.5 % (11.5-14.5); White Blood Count 13.3 K/mm3 (4.5-10.0)
[2021-08-30 06:48] LABS: Alanine Aminotransferase 31 U/L (6-50); Albumin Level 3.3 g/dL (3.5-5.1); Alkaline Phosphatase 67 U/L (38-126); Anion Gap 9 mmol/L (8-16); Aspartate Amino Transferase 112 U/L (17-59); Bilirubin,Total 0.6 mg/dL (0.2-1.3); Blood Urea Nitrogen 31 mg/dL (9-20); Calcium 8.4 mg/dL (8.4-10.2); Carbon Dioxide 23 mmol/L (22-30); Chloride 114 mmol/L (98-107); Estimated CRCL calculation 35 ml/min; Estimated Glomerular Filt Rate > 60; Glucose 163 mg/dL (65-110); Magnesium 2.2 mg/dL (1.6-2.3); Potassium 3.3 mmol/L (3.4-5.0); Sodium 146 mmol/L (137-145)
[2021-08-30] MEDS: ENOXAPARIN 40 MG/0.4 ML SYRINGE SUB-Q (09:54)
[2021-08-30] MEDS: FAMOTIDINE 20 MG/2 ML VIAL IV PUSH (09:55)
[2021-08-30] MEDS: NICOTINE (*PBKC) 14 MG PATCH 1 PATCH TRANSDERM (09:55)
[2021-08-30] MEDS: POTASSIUM CHLORIDE 20 MEQ PACKET (FOR LIQUID) 40 MEQ PO (09:55)
[2021-08-30] MEDS: FLUCONAZOLE 200 MG/NACL 100 ML 200 MG/100 ML BAG 100 MG IVPB (09:56)
[2021-08-30] MEDS: amLODIPine BESYLATE 5 MG TABLET PO (11:21)
--- NOTE | 2021-08-30 11:38 | PM.PNGS ---
Progress Note: A&P Assessment and Plan (1) Acute appendicitis with generalized peritonitis, without gangrene or abscess: Qualifiers: Appendicitis perforation presence: with perforation Qualified Code(s): K35.20 - Acute appendicitis with generalized peritonitis, without abscess Code(s): K35.20 - Acute appendicitis with generalized peritonitis, without abscess Status: Acute Assessment and Plan: bowel function returning. Will DC NG tube and start clear liquids. Transfer to [facility] floor with telemetry. Continue antimicrobials. (2) Atrial fibrillation with controlled ventricular response: Code(s): I48.91 - Unspecified atrial fibrillation Status: Acute Assessment and Plan: Atrial fib with heart rates in the 50s. Normal blood pressure (3) Delirium: Code(s): R41.0 - Disorientation, unspecified Status: Acute Assessment and Plan: has baseline dementia and aphasia. Seems to be worse at night. Subjective Subjective Date/Time Seen: 08/30/21 11:38 Post Op day: 3 Patient reports: feels better, pain is less, no bowel movement, afebrile and other ( Continues to have confusion or delirium) Review of Systems Review of Systems: ROS unobtainable: Yes unobtainable due to mental status Exam Const: General: cooperative, comfortable, no acute distress, alert, awake and confusion Nutritional Appearance: underweight Orientation/consciousness: confusion Cardio: Rate: regular rate Rhythm: regular rhythm GI: Inspection: non-distended, incision ( incision pretty dry, no redness, looks good.) and scaphoid GI Palp: Yes Soft to palpation, Yes Tenderness to palpation present (GI) ( Mild appropriate tenderness), No Guarding due to palpation present (GI) and No Rebound tenderness present Auscultation: normal bowel sounds Extrem: General: no calf tenderness and no edema Objective Data Vital Signs Vital Signs: Vital Signs - 24 hr 08/29/21 13:13 08/29/21 15:55 08/29/21 16:00 Temperature 36.6 C 37.1 C Pulse Rate 85 70 66 Respiratory Rate 20 24 H Blood Pressure 122/104 H 127/69 Pulse Oximetry 97 98 08/29/21 18:00 08/29/21 20:00 08/29/21 20:53 Temperature 36.4 C L Pulse Rate 65 59 L 59 L Respiratory Rate 16 Blood Pressure 131/64 Pulse Oximetry 95 08/29/21 22:00 08/29/21 23:36 08/30/21 00:00 Temperature 36.6 C Pulse Rate 65 70 70 Respiratory Rate 16 16 Blood Pressure 130/63 Pulse Oximetry 96 96 08/30/21 01:29 08/30/21 03:20 08/30/21 04:00 Temperature 37.6 C Pulse Rate 69 72 64 Respiratory Rate 20 Blood Pressure 138/65 Pulse Oximetry 97 08/30/21 06:00 08/30/21 08:00 08/30/21 09:56 Temperature 36.6 C Pulse Rate 57 L 57 L 47 L Respiratory Rate 16 Blood Pressure 156/78 H Pulse Oximetry 97 Intake/Output Intake/Output: Intake & Output 08/27/21 08/28/21 08/29/21 08/30/21 23:59 23:59 23:59 23:59 Intake Total 1950 1400 1377 230 Output Total 610 3575 1200 350 Balance 1340 -2175 177 -120 Meds/Results Medications: Active Medications Generic Name Dose Route Start Last Admin Trade Name Freq PRN Reason Stop Dose Admin Acetaminophen 500 mg 08/30/21 11:30 Acetaminophen 500 Mg Tablet PO Q6H PRN Mild Pain (1-3) or Fever Hydrocodone Bitart/Acetaminophen 1 tab 08/30/21 11:30 Hydrocodone/Acetaminophen (*Crx) 5-325 Mg Tablet PO Q4H PRN Pain Rated 4-6 Alprazolam 0.5 mg 08/30/21 11:33 Alprazolam (*Crx) 0.5 Mg Tablet PO TID PRN Anxiety Amlodipine Besylate 5 mg 08/30/21 09:00 08/30/21 11:21 Amlodipine Besylate 5 Mg Tablet PO 5 mg DAILY KENZIE Administration Donepezil HCl 10 mg 08/30/21 11:35 Donepezil Hcl 10 Mg Tablet PO QHS KENZIE Enoxaparin Sodium 40 mg 08/28/21 09:00 08/30/21 09:54 Enoxaparin 40 Mg/0.4 Ml Syringe SUB-Q 40 mg DAILY KENZIE Administration Famotidine 20 mg 08/30/21 21:00 Famotidine 20 Mg Tablet PO Q1
--- NOTE | 2021-08-30 12:55 | PC.NURSE ---
Removed NG tube. Per Dr. Wynne order. Tip intact. No distress noted.
[2021-08-30] MEDS: GABAPENTIN 300 MG CAPSULE PO ×2 (14:18→16:25)
--- NOTE | 2021-08-30 14:39 | PM.IMPN ---
Progress Note: A&P Assessment and Plan (1) Intestinal perforation: Code(s): K63.1 - Perforation of intestine (nontraumatic) Status: Deleted Assessment and Plan: Edin Nguyen is a 80 year old male patient 80-year-old male with history of COPD unfortunately patient continued to smoke, and dementia and 1 time patient was in hospice and brought emergency department from home with right-sided abdominal pain, CT scan of the abdomen showed Perforated appendicitis with diffuse peritonitis and mild intraperitoneal free air, patient was seen by general surgeon was taken to OR emergently and surgical repair, currently patient is somber unable to provide, most of the history is from the electronic chart and discussing with paste mixing supervisor we have been consulted by the Dr. Wynne general surgeon for medical management, we thank you and follow the patient with you. 08/28/2021 interval history; patient with rupture appendix, status post open appendectomy with peritoneal washout POD#1, initially patient was clinically stable have seen by surgery service however later in the afternoon patient became quite agitated, patient was given Zyprexa, Ativan without any any relief, however patient continued to be agitated and was seen by paste mixing supervisor patient is placed on Precedex, patient was also quite congested and wheezing patient was given IV Lasix 40 mg, patient with history of COPD, give the patient methylprednisone 125 mg X1, started the patient 60 mg q.6, will continue to monitor and further recommendation to follow. 08/30/2021 interval history; patient with rupture appendix, status post open appendectomy with peritoneal washout POD#3, on 08/28 initially patient was clinically stable was seen by surgery service however later in the afternoon patient became quite agitated, patient was given Zyprexa, Ativan without any any relief, however patient continued to be agitated and was seen by paste mixing supervisor patient was placed on Precedex, on 08/29 patient was seen by the surgeon and started patient on clear liquids, patient patient is still confused and unable to provide any ROS, his and son are present in the room, patient will be seen by his sugeon and further recommendation to follow, patient was also quite congested and wheezing patient was given IV Lasix 40 mg, patient with history of COPD, give the patient methylprednisone 125 mg X1, started the patient 60 mg q.6, will taper solumedrol to 60mg BID, will continue to monitor and further recommendation to follow. 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 patient be seen salvager and further recommendation to follow (3) Sepsis: Code(s): A41.9 - Sepsis, unspecified organism Status: Acute Assessment and Plan: patient with sepsis most likely secondary to perforated appendicitis being treated with Zosyn will follow on blood culture Subjective Date/time seen: 08/30/21 14:39 Edin Nguyen is a 80 year old male patient 80-year-old male with history of COPD unfortunately patient continued to smoke, and dementia and 1 time patient was in hospice and brought emergency department from home with right-sided abdominal pain, CT scan of the abdomen showed Perforated appendicitis with diffuse peritonitis and mild intraperitoneal free air, patient was seen by general surgeon was taken to OR emergently and surgical repair, currently patient is somber unable to provide, most of the history is from the electronic chart and discussing with paste mixing supervisor we have been consulted by the Dr. Wynne general surgeon for medical management, we thank you and follow the patient with you. 08/30/2021 interval history; patient with rupture appendix, status post open appendectomy with peritoneal washout POD#3, on 08/16
--- NOTE | 2021-08-30 14:47 | PC.NURSE ---
This patient, Edin Nguyen, was transfered from IMU 232 RN [place] to 3 Med Surg Room 333-01. Patient/family oriented to hospital policies and general routines including ID bracelet, bed and alarms, visiting hours, pain management, procedures, bathroom and other care routines, personal items, smoking policy, room service/diet, and visiting hours. Information on how to activate the Rapid Response Team has been discussed. Patient/Family are encouraged to report perceived risks to care and to ask questions if they do not understand what they are told or what they should do.
--- NOTE | 2021-08-30 14:51 | PC.NURSE ---
restraints removed at beside
[2021-08-30] MEDS: OPTI-GEN TAB 2 TABLET PO (16:25)
[2021-08-30] MEDS: MIRTAZAPINE 30 MG TABLET PO (21:38)
[2021-08-30] MEDS: DONEPEZIL HCL 10 MG TABLET PO (21:38)
[2021-08-30] MEDS: FAMOTIDINE 20 MG TABLET PO (21:38)
[2021-08-31] VITALS (13 sets, daily range): BP systolic 134–152; BP diastolic 57–65; PULSE 41–79; RESP 16–20; TEMP 36.1–36.8; O2SAT 91–97
[2021-08-31] MEDS: LEVOTHYROXINE SODIUM 50 MCG TABLET PO (05:28)
[2021-08-31] MEDS: methylPREDNISolone SOD SUCC 125 MG VIAL 60 MG IV PUSH ×2 (05:28→17:59)
[2021-08-31 06:35] LABS: Hemoglobin 12.8 g/dL (14.0-18.0); Mean Corpuscular HGB Conc 33.7 g/dl (32-36); Mean Corpuscular Hemoglobin 31.8 pg (26-34); Mean Corpuscular Volume 94.3 fl (80-100); Platelet Count Result 171 k/mm3 (150-375); Red Blood Count 4.03 M/mm3 (4.6-6.20); Red Cell Distribution Width 12.8 % (11.5-14.5); White Blood Count 8.1 K/mm3 (4.5-10.0)
[2021-08-31 06:44] LABS: Albumin Level 3.3 g/dL (3.5-5.1); Alkaline Phosphatase 66 U/L (38-126); Anion Gap 6 mmol/L (8-16); Aspartate Amino Transferase 127 U/L (17-59); Bilirubin,Total 0.7 mg/dL (0.2-1.3); Blood Urea Nitrogen 34 mg/dL (9-20); Calcium 8.5 mg/dL (8.4-10.2); Carbon Dioxide 26 mmol/L (22-30); Chloride 113 mmol/L (98-107); Estimated CRCL calculation 41 ml/min; Estimated Glomerular Filt Rate > 60; Glucose 163 mg/dL (65-110); Magnesium 2.2 mg/dL (1.6-2.3); Phosphorus 3.1 mg/dL (2.5-4.5); Potassium 2.9 mmol/L (3.4-5.0); Sodium 145 mmol/L (137-145)
[2021-08-31 06:52] LABS: Alanine Aminotransferase 47 U/L (6-50)
[2021-08-31] MEDS: ENOXAPARIN 40 MG/0.4 ML SYRINGE SUB-Q (08:50)
[2021-08-31] MEDS: GABAPENTIN 300 MG CAPSULE PO ×3 (08:50→17:59)
[2021-08-31] MEDS: FAMOTIDINE 20 MG TABLET PO ×2 (08:51→20:18)
[2021-08-31] MEDS: POTASSIUM CHLORIDE 20 MEQ PACKET (FOR LIQUID) 40 MEQ PO (08:51)
[2021-08-31] MEDS: OPTI-GEN TAB 2 TABLET PO ×2 (08:51→17:59)
[2021-08-31] MEDS: NICOTINE (*PBKC) 14 MG PATCH 1 PATCH TRANSDERM (08:51)
[2021-08-31] MEDS: amLODIPine BESYLATE 5 MG TABLET PO (08:51)
[2021-08-31] MEDS: METOPROLOL TARTRATE 25 MG TABLET PO (08:52)
--- NOTE | 2021-08-31 09:31 | PM.PNPUL ---
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 patient was briefly treated for TB with for antibiotics but subsequently discontinued the antibiotics. currently he has no symptoms to suggest progression of his mycobacterial infection. In particular he denied having cough or sputum production fever or night sweats. plan: will proceed with a chest CT without contrast and sputum for AFB x 3 prior to DC home. (2) Tobacco abuse: Code(s): Z72.0 - Tobacco use Status: Acute (3) Dementia: Qualifiers: Dementia type: unspecified type Dementia behavioral disturbance: without behavioral disturbance Qualified Code(s): F03.90 - Unspecified dementia without behavioral disturbance Code(s): F03.90 - Unspecified dementia without behavioral disturbance Status: Chronic (4) COPD (chronic obstructive pulmonary disease): Qualifiers: COPD type: unspecified COPD Qualified Code(s): J44.9 - Chronic obstructive pulmonary disease, unspecified Code(s): J44.9 - Chronic obstructive pulmonary disease, unspecified Status: Chronic Subjective Date/time seen: 08/31/21 09:31 Patient has no new respiratory symptoms. Remaining on room air. Denied having cough or sputum production. He has no shortness of breath. Review of Systems Review of Systems: All systems reviewed & are unremarkable except as noted in HPI and below Exam Narrative: GENERAL APPEARANCE: Well developed, well nourished, alert and cooperative, and appears to be in no acute distress on room air SKIN: Inspection of the skin reveals no rashes, ulcerations or petechiae. HEENT: Sclerae anicteric and conjunctivae pink and moist. Extraocular movements were intact and pupils were equal. NECK: Supple. There was no thyroid enlargement, and no tenderness, or masses were felt.. LUNGS: Auscultation of the lungs revealed distant breath sounds no wheezing CARDIAC: There was a regular rate and rhythm without any murmurs, gallops, rubs. ABDOMEN:mild tenderness, no distension, BS present LYMPH NODES: No lymphadenopathy was appreciated in the neck. EXTREMITIES: No cyanosis, clubbing or edema. NEUROLOGIC: alert moving all extremities no gross deficits. Objective Data Vital Signs Vital Signs: Vital Signs - 24 hr 08/30/21 09:56 08/30/21 10:00 08/30/21 12:00 Temperature 37.3 C Pulse Rate 47 L 49 L 55 L Respiratory Rate 24 H Blood Pressure 145/86 H Pulse Oximetry 97 08/30/21 14:00 08/30/21 14:56 08/30/21 16:00 Temperature Pulse Rate 63 63 57 L Respiratory Rate 24 H Blood Pressure Pulse Oximetry 97 08/30/21 18:55 08/30/21 20:00 08/30/21 21:37 Temperature 36.8 C 36.1 C L Pulse Rate 66 60 71 Respiratory Rate 14 20 Blood Pressure 94/50 L 157/58 H Pulse Oximetry 94 08/31/21 00:00 08/31/21 04:00 08/31/21 06:00 Temperature 36.6 C Pulse Rate 45 L 41 L 76 Respiratory Rate 16 Blood Pressure 139/65 Pulse Oximetry 91 08/31/21 08:00 08/31/21 08:24 08/31/21 08:52 Temperature 36.4 C L Pulse Rate 55 L 60 Respiratory Rate 18 Blood Pressure 152/57 H Pulse Oximetry 97 95 Intake/Output Intake/Output: Intake & Output 08/28/21 08/29/21 08/30/21 08/31/21 23:59 23:59 23:59 23:59 Intake Total 1400 1377 490 630 Output Total 3575 1200 550 Balance -2175 177 -60 630 Meds/Results Medications: Active Medications Generic Name Dose Route Start Last Admin Trade Name Freq PRN Reason Stop Dose Admin Acetaminophen 500 mg 08/30/21 11:30 Acetaminophen 500 Mg Tablet PO Q6H PRN Mild Pain (1-3) or Fever Hydrocodone Bitart/Acetaminophen 1 tab 08/30/21 11:30 Hydrocodone/Acetaminophen (*Crx) 5-325 Mg Tablet PO Q4H P
[2021-08-31] MEDS: POTASSIUM CHLORIDE INJ 40 MEQ in SODIUM CHLORIDE 0.9% IV 500 ML 130 MEQ IVPB (10:31)
[2021-08-31] MEDS: POTASSIUM CHLORIDE 20 MEQ TABLET 40 MEQ PO (13:12)
[2021-08-31] MEDS: FLUCONAZOLE 200 MG/NACL 100 ML 200 MG/100 ML BAG 100 MG IVPB (13:12)
--- NOTE | 2021-08-31 13:33 | PCNFU ---
Nutrition Follow-Up Complete: Inadequate energy intake related to diet order as evidenced by clear liquid status. Goal: Meet estimated nutritional needs. Pt current nutrition is clear liquids, Ensure surgery BID Nutrition recommendation: Continue with current diet, advance diet when appropriate and as tolerated. Last recorded weight is 45 kg - down 3kg. Bowel Motility: no BM recorded at this time Labs Reviewed: Hgb: 12.8, HCT:38, Alb: 3.3, K:2.9, BUN:34 Meds Noted:lovenox, pepcid, zofran, solumedrol, remeron, KCL Skin:WNL Additional Notes: Pt has been upgraded to clear liquids with Ensure surgery BID, which provides an additional 330kcals, 18g PRO per shake. Pt reports tolerating liquids well. Goal is to advance diet when appropriate. Will add additional supplements when diet is upgraded. Monitor diet order, tolerance, intake, wt, labs. Follow up in 3 days.
--- NOTE | 2021-08-31 14:27 | PM.PNGS ---
Progress Note: A&P Assessment and Plan (1) Acute appendicitis with generalized peritonitis, without gangrene or abscess: Qualifiers: Appendicitis perforation presence: with perforation Qualified Code(s): K35.20 - Acute appendicitis with generalized peritonitis, without abscess Code(s): K35.20 - Acute appendicitis with generalized peritonitis, without abscess Status: Acute Assessment and Plan: Continues to improve. Will advance to full liquids. Continue IV antibiotics. Repeat labs tomorrow. (2) Atrial fibrillation with controlled ventricular response: Code(s): I48.91 - Unspecified atrial fibrillation Status: Acute Assessment and Plan: Continues to have a heart rate in the 50's that did go up to the 60-70's today. BP remains stable. Oral metoprolol restarted this morning. (3) Delirium: Code(s): R41.0 - Disorientation, unspecified Status: Acute Assessment and Plan: Has baseline dementia and aphasia. His confusion seems to be improving some. Additional Plan I have discussed the plan of care with Dr. Wynne. Subjective Subjective Date/Time Seen: 08/31/21 12:27 Post Op day: 4 (Appendectomy) Patient reports: no bowel movement and afebrile Interval history: Patient seen and examined with his at the bedside. Chart reviewed. He reports feeling well today without any specific complaints. Still dealing with confusion but his feels this is better today. When asking him questions, his does correct him multiple times with recalling recent events wrongly. He is unsure if he has been passing gas but has not had a BM since surgery. He has done well with clear liquids. No nausea or vomiting. No other complaints at this time. Exam Const: General: comfortable, no acute distress and awake Orientation/consciousness: confusion GI: Inspection: non-distended and incision ( incision dry with jose intact, no redness) GI Palp: Yes Soft to palpation, No Tenderness to palpation present (GI) and No Guarding due to palpation present (GI) Auscultation: normal bowel sounds Extrem: General: no calf tenderness and no edema Psych: Insight: Limited insight present (Psych) Judgement: Limited judgement present (Psych) Objective Data Vital Signs Vital Signs: Vital Signs - 24 hr 08/30/21 14:56 08/30/21 16:00 08/30/21 18:55 Temperature 98.2 F Pulse Rate 63 57 L 66 Respiratory Rate 24 H 14 Blood Pressure 94/50 L Pulse Oximetry 97 08/30/21 20:00 08/30/21 21:37 08/31/21 00:00 Temperature 97 F L Pulse Rate 60 71 45 L Respiratory Rate 20 Blood Pressure 157/58 H Pulse Oximetry 94 08/31/21 04:00 08/31/21 06:00 08/31/21 08:00 Temperature 98 F 97.5 F L Pulse Rate 41 L 76 47 L Respiratory Rate 16 18 Blood Pressure 139/65 152/57 H Pulse Oximetry 91 94 08/31/21 08:24 08/31/21 08:52 08/31/21 10:20 Temperature Pulse Rate 60 72 Respiratory Rate Blood Pressure Pulse Oximetry 95 08/31/21 12:00 08/31/21 14:00 Temperature 98.3 F Pulse Rate 53 L 59 L Respiratory Rate 20 Blood Pressure 134/57 L Pulse Oximetry 94 Intake/Output Intake/Output: Intake & Output 08/28/21 08/29/21 08/30/21 08/31/21 23:59 23:59 23:59 23:59 Intake Total 1400 1377 590 990 Output Total 3575 1200 550 Balance -2175 177 40 990 Meds/Results Medications: Active Medications Generic Name Dose Route Start Last Admin Trade Name Freq PRN Reason Stop Dose Admin Acetaminophen 500 mg 08/30/21 11:30 Acetaminophen 500 Mg Tablet PO Q6H PRN Mild Pain (1-3) or Fever Hydrocodone Bitart/Acetaminophen 1 tab 08/30/21 11:30 Hydrocodone/Acetaminophen (*Crx) 5-325 Mg Tablet PO Q4H PRN Pain Rated 4-6 Alprazolam 0.5 mg 08/30/21 11:33 Alprazolam (*Crx) 0.5 Mg Tablet PO TID PRN Anxiety Amlodipine Besylate 5 mg 08/30/21 09:00 08/31/21 08:51 Amlodipine Besylate 5 Mg Tablet PO 5 mg DAILY KENZIE Adminis
--- NOTE | 2021-08-31 17:47 | PM.IMPN ---
Progress Note: A&P Assessment and Plan (1) Intestinal perforation: Code(s): K63.1 - Perforation of intestine (nontraumatic) Status: Deleted Assessment and Plan: Edin Nguyen is a 80 year old male patient 80-year-old male with history of COPD unfortunately patient continued to smoke, and dementia and 1 time patient was in hospice and brought emergency department from home with right-sided abdominal pain, CT scan of the abdomen showed Perforated appendicitis with diffuse peritonitis and mild intraperitoneal free air, patient was seen by general surgeon was taken to OR emergently and surgical repair, currently patient is somber unable to provide, most of the history is from the electronic chart and discussing with swinging cut off saw operator we have been consulted by the Dr. Wynne general surgeon for medical management, we thank you and follow the patient with you. 08/28/2021 interval history; patient with rupture appendix, status post open appendectomy with peritoneal washout POD#1, initially patient was clinically stable have seen by surgery service however later in the afternoon patient became quite agitated, patient was given Zyprexa, Ativan without any any relief, however patient continued to be agitated and was seen by swinging cut off saw operator patient is placed on Precedex, patient was also quite congested and wheezing patient was given IV Lasix 40 mg, patient with history of COPD, give the patient methylprednisone 125 mg X1, started the patient 60 mg q.6, will continue to monitor and further recommendation to follow. 08/30/2021 interval history; patient with rupture appendix, status post open appendectomy with peritoneal washout POD#3, on 08/28 initially patient was clinically stable was seen by surgery service however later in the afternoon patient became quite agitated, patient was given Zyprexa, Ativan without any any relief, however patient continued to be agitated and was seen by swinging cut off saw operator patient was placed on Precedex, on 08/29 patient was seen by the surgeon and started patient on clear liquids, patient patient is still confused and unable to provide any ROS, his and son are present in the room, patient will be seen by his sugeon and further recommendation to follow, patient was also quite congested and wheezing patient was given IV Lasix 40 mg, patient with history of COPD, give the patient methylprednisone 125 mg X1, started the patient 60 mg q.6, will taper solumedrol to 60mg BID, will continue to monitor and further recommendation to follow. 08/31/2021 interval history; patient with rupture appendix, status post open appendectomy with peritoneal washout POD#3, on 08/28 initially patient was clinically stable was seen by surgery service however later in the afternoon patient became quite agitated, patient was given Zyprexa, Ativan without any any relief, however patient continued to be agitated and was seen by swinging cut off saw operator patient was placed on Precedex, on 08/29 patient was seen by the surgeon and started patient on clear liquids, patient patient is still confused and unable to provide any ROS, however patient is more pleasant, still no BM, states feeling he is going to have 1 today, patient will be seen by his sugeon and further recommendation to follow, patient was also quite congested and wheezing patient was given IV Lasix 40 mg, patient with history of COPD, give the patient methylprednisone 125 mg X1, started the patient 60 mg q.6, will taper solumedrol to 60mg BID, will continue to monitor and further recommendation to follow. 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
[2021-08-31] MEDS: DONEPEZIL HCL 10 MG TABLET PO (20:18)
[2021-08-31] MEDS: MIRTAZAPINE 30 MG TABLET PO (20:18)
[2021-09-01] VITALS (11 sets, daily range): BP systolic 139–154; BP diastolic 63–79; PULSE 57–110; RESP 16–20; TEMP 36.2–36.6; O2SAT 93–96
[2021-09-01] MEDS: SODIUM CHLOR 3% 15 ML NEB (RESPIRATORY THERAPY) 6 ML INHALATION (05:11)
[2021-09-01] MEDS: LEVOTHYROXINE SODIUM 50 MCG TABLET PO (05:55)
[2021-09-01 06:16] LABS: Hematocrit 40.7 % (42.0-52.0); Hemoglobin 13.3 g/dL (14.0-18.0); Mean Corpuscular HGB Conc 32.7 g/dl (32-36); Mean Corpuscular Hemoglobin 31.6 pg (26-34); Mean Corpuscular Volume 96.7 fl (80-100); Mean Platelet Volume 10.3 fl (7.4-10.4); Platelet Count Result 160 k/mm3 (150-375); Red Blood Count 4.21 M/mm3 (4.6-6.20); Red Cell Distribution Width 13.2 % (11.5-14.5)
[2021-09-01 06:28] LABS: Alanine Aminotransferase 181 U/L (6-50); Albumin Level 3.7 g/dL (3.5-5.1); Alkaline Phosphatase 72 U/L (38-126); Anion Gap 7 mmol/L (8-16); Aspartate Amino Transferase 231 U/L (17-59); Blood Urea Nitrogen 31 mg/dL (9-20); Carbon Dioxide 29 mmol/L (22-30); Chloride 109 mmol/L (98-107); Estimated CRCL calculation 41 ml/min; Estimated Glomerular Filt Rate > 60; Glucose 140 mg/dL (65-110); Magnesium 2.2 mg/dL (1.6-2.3); Phosphorus 2.8 mg/dL (2.5-4.5); Potassium 3.8 mmol/L (3.4-5.0); Sodium 145 mmol/L (137-145)
[2021-09-01] MEDS: GABAPENTIN 300 MG CAPSULE PO ×2 (09:39→17:52)
[2021-09-01] MEDS: amLODIPine BESYLATE 5 MG TABLET PO (09:39)
[2021-09-01] MEDS: METOPROLOL TARTRATE 25 MG TABLET PO ×2 (09:39→20:57)
[2021-09-01] MEDS: methylPREDNISolone SOD SUCC 125 MG VIAL 60 MG IV PUSH (09:40)
[2021-09-01] MEDS: POTASSIUM CHLORIDE 20 MEQ PACKET (FOR LIQUID) 40 MEQ PO (09:40)
[2021-09-01] MEDS: NICOTINE (*PBKC) 14 MG PATCH 1 PATCH TRANSDERM (09:40)
[2021-09-01] MEDS: FAMOTIDINE 20 MG TABLET PO ×2 (09:40→20:57)
[2021-09-01] MEDS: ENOXAPARIN 40 MG/0.4 ML SYRINGE SUB-Q (09:41)
[2021-09-01] MEDS: FLUCONAZOLE 200 MG/NACL 100 ML 200 MG/100 ML BAG 100 MG IVPB (10:14)
--- NOTE | 2021-09-01 10:37 | PM.PNPUL ---
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 patient was briefly treated for TB with 4 antibiotics but subsequently discontinued the antibiotics. currently he has no symptoms to suggest progression of his mycobacterial infection. In particular he denied having cough or sputum production fever or night sweats. chest CT showed right upper lobe worsening infiltrate with small cavities consistent with chronic mycobacterial disease. plan: from the respiratory standpoint the patient can be discharged home following a sputum induction and specimen collection today. The specimen will be sent for AFB and mycobacterial culture. The patient should return to pulmonary clinic in approximately 3 months for re-evaluation. Depending upon his clinical condition, other comorbidities, and drug sensitivity will consider referral to Infectious Disease payroll consultant regarding treatment for non TB mycobacterial infection. (2) Tobacco abuse: Code(s): Z72.0 - Tobacco use Status: Acute (3) Dementia: Qualifiers: Dementia type: unspecified type Dementia behavioral disturbance: without behavioral disturbance Qualified Code(s): F03.90 - Unspecified dementia without behavioral disturbance Code(s): F03.90 - Unspecified dementia without behavioral disturbance Status: Chronic (4) COPD (chronic obstructive pulmonary disease): Qualifiers: COPD type: unspecified COPD Qualified Code(s): J44.9 - Chronic obstructive pulmonary disease, unspecified Code(s): J44.9 - Chronic obstructive pulmonary disease, unspecified Status: Chronic Subjective Date/time seen: 09/01/21 10:37 Patient has no new respiratory symptoms. Afebrile. Underwent sputum induction this a.m.. willing to go home Review of Systems Review of Systems: All systems reviewed & are unremarkable except as noted in HPI and below Exam Narrative: GENERAL APPEARANCE: Well developed, well nourished, alert and cooperative, and appears to be in no acute distress on room air SKIN: Inspection of the skin reveals no rashes, ulcerations or petechiae. HEENT: Sclerae anicteric and conjunctivae pink and moist. Extraocular movements were intact and pupils were equal. NECK: Supple. There was no thyroid enlargement, and no tenderness, or masses were felt.. LUNGS: Auscultation of the lungs revealed distant breath sounds no wheezing CARDIAC: There was a regular rate and rhythm without any murmurs, gallops, rubs. ABDOMEN:mild tenderness, no distension, BS present LYMPH NODES: No lymphadenopathy was appreciated in the neck. EXTREMITIES: No cyanosis, clubbing or edema. NEUROLOGIC: alert moving all extremities no gross deficits. Objective Data Vital Signs Vital Signs: Vital Signs - 24 hr 08/31/21 12:00 08/31/21 14:00 08/31/21 16:00 Temperature 36.8 C Pulse Rate 53 L 59 L 79 Respiratory Rate 20 Blood Pressure 134/57 L Pulse Oximetry 94 08/31/21 20:00 08/31/21 22:00 08/31/21 22:13 Temperature 36.1 C L Pulse Rate 59 L 62 Respiratory Rate 16 Blood Pressure 150/63 H Pulse Oximetry 96 96 09/01/21 00:00 09/01/21 04:00 09/01/21 05:33 Temperature 36.2 C L Pulse Rate 75 59 L 99 Respiratory Rate 16 Blood Pressure 154/77 H Pulse Oximetry 94 09/01/21 08:00 09/01/21 09:39 Temperature Pulse Rate 110 H Respiratory Rate Blood Pressure Pulse Oximetry 94 Intake/Output Intake/Output: Intake & Output 08/29/21 08/30/21 08/31/21 09/01/21 23:59 23:59 23:59 23:59 Intake Total 3585 889 5776 125 Output Total 1200 550 680 400 Balance 590 82 4336 -275 Meds/Results Medications: Active Medications Generic Name Dose Route Start Last Admin Trade Name
--- NOTE | 2021-09-01 10:45 | PM.PNGS ---
Progress Note: A&P Assessment and Plan (1) Acute appendicitis with generalized peritonitis, without gangrene or abscess: Qualifiers: Appendicitis perforation presence: with perforation Qualified Code(s): K35.20 - Acute appendicitis with generalized peritonitis, without abscess Code(s): K35.20 - Acute appendicitis with generalized peritonitis, without abscess Status: Acute Assessment and Plan: Continues to improve. Continue IV antibiotics. Patient could probably be discharged tomorrow or if others agree. He is anxious to go home. (2) Atrial fibrillation with controlled ventricular response: Code(s): I48.91 - Unspecified atrial fibrillation Status: Acute Assessment and Plan: Seems stable, possibly d/c telemetry. (3) Pulmonary edema: Qualifiers: Chronicity: acute Qualified Code(s): J81.0 - Acute pulmonary edema Code(s): J81.1 - Chronic pulmonary edema Status: Acute Assessment and Plan: Improved. (4) COPD (chronic obstructive pulmonary disease): Qualifiers: COPD type: unspecified COPD Qualified Code(s): J44.9 - Chronic obstructive pulmonary disease, unspecified Code(s): J44.9 - Chronic obstructive pulmonary disease, unspecified Status: Chronic Assessment and Plan: Still on methylprednisolone. Possibly change to p.o. steroids. Pulmonary managing. Subjective Subjective Date/Time Seen: 09/01/21 10:45 Post Op day: 5 Patient reports: no new complaints, pain is less, bowel movement and afebrile Exam Const: General: cooperative, comfortable, no acute distress, alert and awake Nutritional Appearance: underweight GI: Inspection: incision (less drainage, no erythema, healing well) and scaphoid GI Palp: Yes Soft to palpation and Yes Tenderness to palpation present (GI) (almost nontender) Auscultation: normal bowel sounds Objective Data Vital Signs Vital Signs: Vital Signs - 24 hr 08/31/21 12:00 08/31/21 14:00 08/31/21 16:00 Temperature 36.8 C Pulse Rate 53 L 59 L 79 Respiratory Rate 20 Blood Pressure 134/57 L Pulse Oximetry 94 08/31/21 20:00 08/31/21 22:00 08/31/21 22:13 Temperature 36.1 C L Pulse Rate 59 L 62 Respiratory Rate 16 Blood Pressure 150/63 H Pulse Oximetry 96 96 09/01/21 00:00 09/01/21 04:00 09/01/21 05:33 Temperature 36.2 C L Pulse Rate 75 59 L 99 Respiratory Rate 16 Blood Pressure 154/77 H Pulse Oximetry 94 09/01/21 08:00 09/01/21 09:39 Temperature Pulse Rate 110 H Respiratory Rate Blood Pressure Pulse Oximetry 94 Intake/Output Intake/Output: Intake & Output 08/29/21 08/30/21 08/31/21 09/01/21 23:59 23:59 23:59 23:59 Intake Total 7021 542 9207 125 Output Total 1200 550 680 400 Balance 885 29 9905 -275 Meds/Results Medications: Active Medications Generic Name Dose Route Start Last Admin Trade Name Freq PRN Reason Stop Dose Admin Acetaminophen 500 mg 08/30/21 11:30 Acetaminophen 500 Mg Tablet PO Q6H PRN Mild Pain (1-3) or Fever Hydrocodone Bitart/Acetaminophen 1 tab 08/30/21 11:30 Hydrocodone/Acetaminophen (*Crx) 5-325 Mg Tablet PO Q4H PRN Pain Rated 4-6 Alprazolam 0.5 mg 08/30/21 11:33 Alprazolam (*Crx) 0.5 Mg Tablet PO TID PRN Anxiety Amlodipine Besylate 5 mg 08/30/21 09:00 09/01/21 09:39 Amlodipine Besylate 5 Mg Tablet PO 5 mg DAILY KENZIE Administration Donepezil HCl 10 mg 08/30/21 21:00 08/31/21 20:18 Donepezil Hcl 10 Mg Tablet PO 10 mg HS KENZIE Administration Enoxaparin Sodium 40 mg 08/28/21 09:00 09/01/21 09:41 Enoxaparin 40 Mg/0.4 Ml Syringe SUB-Q 40 mg DAILY KENZIE Administration Famotidine 20 mg 08/30/21 21:00 09/01/21 09:40 Famotidine 20 Mg Tablet PO 20 mg Q12HR KENZIE Administration Gabapentin 300 mg 08/30/21 13:00 09/01/21 09:39 Gabapentin 300 Mg Capsule PO 300 mg TID KENZIE Administration Piperac
--- NOTE | 2021-09-01 10:45 | PM.PNGS ---
Subjective Subjective Date/Time Seen: 09/01/21 10:45 Post Op day: 5 (Appendectomy) Patient reports: tolerating liquids well, flatus, bowel movement and afebrile Interval history: Patient seen and examined. Objective Data Vital Signs Vital Signs: Vital Signs - 24 hr 08/31/21 12:00 08/31/21 14:00 08/31/21 16:00 Temperature 98.3 F Pulse Rate 53 L 59 L 79 Respiratory Rate 20 Blood Pressure 134/57 L Pulse Oximetry 94 08/31/21 20:00 08/31/21 22:00 08/31/21 22:13 Temperature 97 F L Pulse Rate 59 L 62 Respiratory Rate 16 Blood Pressure 150/63 H Pulse Oximetry 96 96 09/01/21 00:00 09/01/21 04:00 09/01/21 05:33 Temperature 97.2 F L Pulse Rate 75 59 L 99 Respiratory Rate 16 Blood Pressure 154/77 H Pulse Oximetry 94 09/01/21 08:00 09/01/21 09:39 Temperature Pulse Rate 110 H Respiratory Rate Blood Pressure Pulse Oximetry 94 Intake/Output Intake/Output: Intake & Output 08/29/21 08/30/21 08/31/21 09/01/21 23:59 23:59 23:59 23:59 Intake Total 2549 126 2933 125 Output Total 1200 550 680 400 Balance 884 17 2477 -275 Meds/Results Medications: Active Medications Generic Name Dose Route Start Last Admin Trade Name Freq PRN Reason Stop Dose Admin Acetaminophen 500 mg 08/30/21 11:30 Acetaminophen 500 Mg Tablet PO Q6H PRN Mild Pain (1-3) or Fever Hydrocodone Bitart/Acetaminophen 1 tab 08/30/21 11:30 Hydrocodone/Acetaminophen (*Crx) 5-325 Mg Tablet PO Q4H PRN Pain Rated 4-6 Alprazolam 0.5 mg 08/30/21 11:33 Alprazolam (*Crx) 0.5 Mg Tablet PO TID PRN Anxiety Amlodipine Besylate 5 mg 08/30/21 09:00 09/01/21 09:39 Amlodipine Besylate 5 Mg Tablet PO 5 mg DAILY KENZIE Administration Donepezil HCl 10 mg 08/30/21 21:00 08/31/21 20:18 Donepezil Hcl 10 Mg Tablet PO 10 mg HS KENZIE Administration Enoxaparin Sodium 40 mg 08/28/21 09:00 09/01/21 09:41 Enoxaparin 40 Mg/0.4 Ml Syringe SUB-Q 40 mg DAILY KENZIE Administration Famotidine 20 mg 08/30/21 21:00 09/01/21 09:40 Famotidine 20 Mg Tablet PO 20 mg Q12HR KENZIE Administration Gabapentin 300 mg 08/30/21 13:00 09/01/21 09:39 Gabapentin 300 Mg Capsule PO 300 mg TID KENZIE Administration Piperacillin Sod/Tazobactam Sod 2.25 gm in 50 mls @ 100 mls/hr 08/27/21 12:00 09/01/21 05:54 Zosyn 2.25 Gm/D5w 50 Ml IVPB 100 mls/hr Q6HR KENZIE Administration Fluconazole 200 mg in 100 mls @ 100 mls/hr 08/28/21 10:15 09/01/21 10:14 Diflucan 200 Mg/Nacl 100 Ml IVPB 100 mls/hr DAILY KENZIE Administration Levothyroxine Sodium 50 mcg 08/31/21 06:30 09/01/21 05:55 Levothyroxine Sodium 50 Mcg Tablet PO 50 mcg DAILY@0630 KENZIE Administration Methylprednisolone Sodium Succinate 60 mg 08/31/21 17:00 09/01/21 09:40 Methylprednisolone Sod Succ 125 Mg Vial IV PUSH 60 mg BID KENZIE Administration Metoprolol Tartrate 25 mg 08/31/21 09:00 09/01/21 09:39 Metoprolol Tartrate 25 Mg Tablet PO 25 mg DAILY KENZIE Administration Mirtazapine 30 mg 08/30/21 21:00 08/31/21 20:18 Mirtazapine 30 Mg Tablet PO 30 mg HS KENZIE Administration Morphine Sulfate 2 mg 08/27/21 10:13 08/28/21 06:54 Morphine Sulfate (*Crx) 2 Mg/Ml Inj IV PUSH 2 mg Q2H PRN Administration Pain Rated 4-6 Morphine Sulfate 4 mg 08/27/21 10:13 08/30/21 03:26 Morphine Sulfate (*Crx) 4 Mg/Ml Inj IV PUSH 4 mg Q2H PRN Administration Pain Rated 7-10 Multivitamins/Minerals 2 tablet 08/30/21 17:00 09/01/21 09:40 Opti-Gen Tab PO 09/29/21 16:59 2 tablet BID KENZIE Administration Naloxone HCl 0.1 mg 08/27/21 10:13 Naloxone Hcl 0.4 Mg/Ml Vial IV PUSH Q2M PRN Opiate Reversal Nicotine 1 patch 08/27/21 09:00 09/01/21 09:40 Nicotine (*Phikc) 14 Mg Patch TRANSDERM 1 patch QAM KENZIE Administration Ondansetron HCl 4 mg 08/27/21 10:13 Ondansetron Inj 4 Mg/2 Ml Vial IV PUSH Q4H PRN Nausea And Vomit
--- NOTE | 2021-09-01 14:31 | PM.IMPN ---
Progress Note: A&P Assessment and Plan (1) Intestinal perforation: Code(s): K63.1 - Perforation of intestine (nontraumatic) Status: Deleted Assessment and Plan: Edin Nguyen is a 80 year old male patient 80-year-old male with history of COPD unfortunately patient continued to smoke, and dementia and 1 time patient was in hospice and brought emergency department from home with right-sided abdominal pain, CT scan of the abdomen showed Perforated appendicitis with diffuse peritonitis and mild intraperitoneal free air, patient was seen by general surgeon was taken to OR emergently and surgical repair, currently patient is somber unable to provide, most of the history is from the electronic chart and discussing with electrician manager we have been consulted by the Dr. Wynne general surgeon for medical management, we thank you and follow the patient with you. 08/28/2021 interval history; patient with rupture appendix, status post open appendectomy with peritoneal washout POD#1, initially patient was clinically stable have seen by surgery service however later in the afternoon patient became quite agitated, patient was given Zyprexa, Ativan without any any relief, however patient continued to be agitated and was seen by electrician manager patient is placed on Precedex, patient was also quite congested and wheezing patient was given IV Lasix 40 mg, patient with history of COPD, give the patient methylprednisone 125 mg X1, started the patient 60 mg q.6, will continue to monitor and further recommendation to follow. 08/30/2021 interval history; patient with rupture appendix, status post open appendectomy with peritoneal washout POD#3, on 08/28 initially patient was clinically stable was seen by surgery service however later in the afternoon patient became quite agitated, patient was given Zyprexa, Ativan without any any relief, however patient continued to be agitated and was seen by electrician manager patient was placed on Precedex, on 08/29 patient was seen by the surgeon and started patient on clear liquids, patient patient is still confused and unable to provide any ROS, his and son are present in the room, patient will be seen by his sugeon and further recommendation to follow, patient was also quite congested and wheezing patient was given IV Lasix 40 mg, patient with history of COPD, give the patient methylprednisone 125 mg X1, started the patient 60 mg q.6, will taper solumedrol to 60mg BID, will continue to monitor and further recommendation to follow. 08/31/2021 interval history; patient with rupture appendix, status post open appendectomy with peritoneal washout POD#3, on 08/28 initially patient was clinically stable was seen by surgery service however later in the afternoon patient became quite agitated, patient was given Zyprexa, Ativan without any any relief, however patient continued to be agitated and was seen by electrician manager patient was placed on Precedex, on 08/29 patient was seen by the surgeon and started patient on clear liquids, patient patient is still confused and unable to provide any ROS, however patient is more pleasant, still no BM, states feeling he is going to have 1 today, patient will be seen by his sugeon and further recommendation to follow, patient was also quite congested and wheezing patient was given IV Lasix 40 mg, patient with history of COPD, give the patient methylprednisone 125 mg X1, started the patient 60 mg q.6, will taper solumedrol to 60mg BID, will continue to monitor and further recommendation to follow. 09/01/2021 interval history; patient with rupture appendix, status post open appendectomy with peritoneal washout POD#5, on 08/28 initially patient was clinically stable was seen by surgery service however later in the afternoon patient became quite agitated, patient was given Zyprexa, Ativan without any any relief, however patient continued to be agitated and was seen by electrician manager patient was placed on Pre
[2021-09-01] MEDS: OPTI-GEN TAB 2 TABLET PO (17:52)
[2021-09-01] MEDS: DONEPEZIL HCL 10 MG TABLET PO (20:57)
[2021-09-01] MEDS: MIRTAZAPINE 30 MG TABLET PO (20:58)
[2021-09-02] VITALS (8 sets, daily range): BP systolic 131–181; BP diastolic 68–88; PULSE 54–77; RESP 16–18; TEMP 36.4–37.1; O2SAT 94–96
--- NOTE | 2021-09-02 05:04 | PCRCNOTE ---
Per nurse, sample obtained 09/01 and sputum induction not necessary.
[2021-09-02] MEDS: LEVOTHYROXINE SODIUM 50 MCG TABLET PO (05:25)
[2021-09-02] MEDS: FLUCONAZOLE 200 MG/NACL 100 ML 200 MG/100 ML BAG 100 MG IVPB (08:33)
[2021-09-02] MEDS: ENOXAPARIN 40 MG/0.4 ML SYRINGE SUB-Q (08:33)
[2021-09-02] MEDS: POTASSIUM CHLORIDE 20 MEQ PACKET (FOR LIQUID) 40 MEQ PO (08:34)
[2021-09-02] MEDS: predniSONE 20 MG TABLET 60 MG PO (08:34)
[2021-09-02] MEDS: OPTI-GEN TAB 2 TABLET PO (08:34)
[2021-09-02] MEDS: amLODIPine BESYLATE 5 MG TABLET PO (08:34)
[2021-09-02] MEDS: GABAPENTIN 300 MG CAPSULE PO ×2 (08:34→12:45)
[2021-09-02] MEDS: METOPROLOL TARTRATE 25 MG TABLET PO (08:35)
[2021-09-02] MEDS: FAMOTIDINE 20 MG TABLET PO (08:35)
[2021-09-02] MEDS: NICOTINE (*PBKC) 14 MG PATCH 1 PATCH TRANSDERM (08:36)
--- NOTE | 2021-09-02 09:20 | PCPTNOTE ---
Patient refused treatment this session. Patient states the only thing I am going to do today is go home. I want to go home!
--- NOTE | 2021-09-02 12:01 | PM.PNGS ---
Progress Note: A&P Assessment and Plan (1) Acute appendicitis with generalized peritonitis, without gangrene or abscess: Qualifiers: Appendicitis perforation presence: with perforation Qualified Code(s): K35.20 - Acute appendicitis with generalized peritonitis, without abscess Code(s): K35.20 - Acute appendicitis with generalized peritonitis, without abscess Status: Acute Assessment and Plan: Continues to improve. Okay to discharge patient from our standpoint. Not really having any pain and not needing any pain medication. Would recommend to continue with a few more days of Augmentin on discharge. Continue daily gauze dressing changes. Follow-up with Dr. Wynne in 1 week for staple removal. (2) Atrial fibrillation with controlled ventricular response: Code(s): I48.91 - Unspecified atrial fibrillation Status: Acute Assessment and Plan: Continues to be stable (3) Pulmonary edema: Qualifiers: Chronicity: acute Qualified Code(s): J81.0 - Acute pulmonary edema Code(s): J81.1 - Chronic pulmonary edema Status: Acute Assessment and Plan: Pulmonology following (4) COPD (chronic obstructive pulmonary disease): Qualifiers: COPD type: unspecified COPD Qualified Code(s): J44.9 - Chronic obstructive pulmonary disease, unspecified Code(s): J44.9 - Chronic obstructive pulmonary disease, unspecified Status: Chronic Assessment and Plan: Switched to oral steroids. Management per Hospitalist on discharge Additional Plan I have discussed the patient's case and plan of care with Dr. Wynne. Subjective Subjective Date/Time Seen: 09/02/21 12:01 Post Op day: 6 (Appendectomy) Patient reports: feels better, flatus and bowel movement (yesterday per his ) Interval history: Patient seen and examined with his at the bedside. He reports feeling well today. He is still eager to go home. He is not requiring any narcotic pain medication. Pain is controlled. He is tolerating his diet, which is primarily protein shakes that is what he drinks at home as well. Review of Systems Review of Systems: All systems reviewed & are unremarkable except as noted in HPI and below Exam Const: General: comfortable, no acute distress and awake Nutritional Appearance: underweight Orientation/consciousness: confusion (confused at times, stable) GI: Inspection: non-distended and incision (incision dry and jose intact, scant dry serosanguineous drainage on drsg) GI Palp: Yes Soft to palpation, No Tenderness to palpation present (GI) and No Guarding due to palpation present (GI) Auscultation: normal bowel sounds Neuro: General: moves all extremities and no focal motor deficits Extrem: General: no calf tenderness and no edema Psych: Judgement: Fair judgement present (Psych) Objective Data Vital Signs Vital Signs: Vital Signs - 24 hr 09/01/21 14:00 09/01/21 16:00 09/01/21 20:00 Temperature 97.3 F L 97.9 F Pulse Rate 66 69 59 L Respiratory Rate 20 18 Blood Pressure 139/63 140/79 Pulse Oximetry 93 96 09/01/21 20:57 09/01/21 22:00 09/02/21 00:00 Temperature Pulse Rate 57 L 59 L 54 L Respiratory Rate Blood Pressure Pulse Oximetry 09/02/21 04:00 09/02/21 06:00 09/02/21 08:35 Temperature 97.5 F L Pulse Rate 77 63 63 Respiratory Rate 18 Blood Pressure 181/88 H Pulse Oximetry 96 Intake/Output Intake/Output: Intake & Output 08/30/21 08/31/21 09/01/21 09/02/21 23:59 23:59 23:59 23:59 Intake Total 590 1710 1815 290 Output Total 293 160 1955 450 Balance 40 1030 815 -160 Meds/Results Medications: Active Medications Generic Name Dose Route Start Last Admin Trade Name Freq PRN Reason Stop Dose Admin Acetaminophen 500 mg 08/30/21 11:30 Acetaminophen 500 Mg Tablet PO Q6H PRN Mild Pain (1-3) or Fever Hydrocodone Bitart/Acetaminophen 1 tab 08/30/21 11:30 Hydrocodone/Ac
--- NOTE | 2021-09-02 13:02 | PM.IMPN ---
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 patient be seen tin can feeder and further recommendation to follow (3) Sepsis: Code(s): A41.9 - Sepsis, unspecified organism Status: Acute Assessment and Plan: patient with sepsis most likely secondary to perforated appendicitis being treated with Zosyn will follow on blood culture Improved Additional Plan Discharge planning per surgery Subjective Date/time seen: 09/02/21 13:02 Review of Systems Review of Systems: 10 point ROS negative except as stated in HPI / Subjective Exam Narrative: General: alert and oriented Psych: appropriate mood nad affect Eyes: PERRLA Neck: Trachea midline, no new lesions Skin: no changes Lungs: CTA Cardiac: Normal S1,S2, no MGR ABD: soft, nd, nt, nbs Ext: no new lesions, no cce Vasc: Pulses intact Objective Data Vital Signs Vital Signs: Vital Signs - 24 hr 09/01/21 14:00 09/01/21 16:00 09/01/21 20:00 Temperature 97.3 F L 97.9 F Pulse Rate 66 69 59 L Respiratory Rate 20 18 Blood Pressure 139/63 140/79 Pulse Oximetry 93 96 09/01/21 20:57 09/01/21 22:00 09/02/21 00:00 Temperature Pulse Rate 57 L 59 L 54 L Respiratory Rate Blood Pressure Pulse Oximetry 09/02/21 04:00 09/02/21 06:00 09/02/21 08:35 Temperature 97.5 F L Pulse Rate 77 63 63 Respiratory Rate 18 Blood Pressure 181/88 H Pulse Oximetry 96 Intake/Output Intake/Output: Intake & Output 08/30/21 08/31/21 09/01/21 09/02/21 23:59 23:59 23:59 23:59 Intake Total 590 1710 1815 340 Output Total 719 232 9815 450 Balance 40 1030 815 -110 Meds/Results Medications: Active Medications Generic Name Dose Route Start Last Admin Trade Name Freq PRN Reason Stop Dose Admin Acetaminophen 500 mg 08/30/21 11:30 Acetaminophen 500 Mg Tablet PO Q6H PRN Mild Pain (1-3) or Fever Hydrocodone Bitart/Acetaminophen 1 tab 08/30/21 11:30 Hydrocodone/Acetaminophen (*Crx) 5-325 Mg Tablet PO Q4H PRN Pain Rated 4-6 Alprazolam 0.5 mg 08/30/21 11:33 Alprazolam (*Crx) 0.5 Mg Tablet PO TID PRN Anxiety Amlodipine Besylate 5 mg 08/30/21 09:00 09/02/21 08:34 Amlodipine Besylate 5 Mg Tablet PO 5 mg DAILY KENZIE Administration Donepezil HCl 10 mg 08/30/21 21:00 09/01/21 20:57 Donepezil Hcl 10 Mg Tablet PO 10 mg HS KENZIE Administration Enoxaparin Sodium 40 mg 08/28/21 09:00 09/02/21 08:33 Enoxaparin 40 Mg/0.4 Ml Syringe SUB-Q 40 mg DAILY KENZIE Administration Famotidine 20 mg 08/30/21 21:00 09/02/21 08:35 Famotidine 20 Mg Tablet PO 20 mg Q12HR KENZIE Administration Gabapentin 300 mg 08/30/21 13:00 09/02/21 12:45 Gabapentin 300 Mg Capsule PO 300 mg TID KENZIE Administration Piperacillin Sod/Tazobactam Sod 2.25 gm in 50 mls @ 100 mls/hr 08/27/21 12:00 09/02/21 12:45 Zosyn 2.25 Gm/D5w 50 Ml IVPB 100 mls/hr Q6HR KENZIE Administration Fluconazole 200 mg in 100 mls @ 100 mls/hr 08/28/21 10:15 09/02/21 08:33 Diflucan 200 Mg/Nacl 100 Ml IVPB 100 mls/hr DAILY KENZIE Administration Levothyroxine Sodium 50 mcg 08/31/21 06:30 09/02/21 05:25 Levothyroxine Sodium 50 Mcg Tablet PO 50 mcg DAILY@0630 KENZIE Administration Metoprolol Tartrate 25 mg 09/01/21 21:00 09/02/21 08:35 Metoprolol Tartrate 25 Mg Tablet PO 25 mg Q12HR KENZIE Administration Mirtazapine 30 mg 08/30/21 21:00 09/01/21 20:58 Mirtazapine 30 Mg Tablet PO 30 mg HS KENZIE Administration Morphine Sulfate 2 mg 08/27/21 10:13 08/28/21 06:54 Morphine Sulfate (
--- NOTE | 2021-09-02 16:46 | P.DS_ITS ---
DS: Admitting Diagnosis Discharge Date 09/02/21 Admitting Diagnosis perforated appendix DS: Summary Hospital Course Hospital Course: see dc diagnosis Time Spent with Patient Time attestation: Total time spent providing and/or coordinating discharge services: Time spent: Greater than 30 minutes Exam Narrative: General: alert and oriented Psych: appropriate mood nad affect Eyes: PERRLA Neck: Trachea midline, no new lesions Skin: no changes Lungs: CTA Cardiac: Normal S1,S2, no MGR ABD: soft, nd, nt, nbs Ext: no new lesions, no cce Vasc: Pulses intact DS: Data Data Completed and Pending Completed studies during hospitalization: Pending at discharge 08/27/21 08:19 Surgical [PTH] Routine Discharge Plan Discharge Attending physician on discharge: Eagle Mcrae Consulting providers: Fran Wynne ; Martinez Fofana ; Selena Spencer ; Joe Contreras Discharging Clinician: Eagle Mcrae Patient Disposition: Home, Self-Care Activity: may shower and other - see discharge instructions Diet: regular Wound Care Instructions: change dressing daily Discharge Instructions: General Surgery Discharge Instructions: * Change the dressing over your incision daily with gauze and tape. You may wash over your incision with mild soap and water daily. Do not submerge in water. * Follow-up with Dr. Wynne in our office in 1 week. Call to schedule the appointment ([phone]) * No heavy lifting more than 20 pounds. * Continue increasing activity, it would be good to be up and walking at least three times daily, try work towards this goal. * Antibiotics have been sent to the pharmacy, take all of this medication. * If you have more abdominal pain, fever, or vomiting, please call the office or go to the ER. * May take Tylenol as needed for any incisional pain or discomfort. Patient Instructions: Antibiotic Form, Pain Management (DC), Open Appendectomy (DC), Exploratory Laparotomy (DC) Stand Alone Forms: General Discharge Information Follow-up/Referrals: Fran Wynne MD [Physician] - 1 Week Je Black MD [Primary Care Provider] - Discharge Medications: New amoxicillin-pot clavulanate 875-125 mg tablet 1 tablet PO Q12H Qty: 7 RF: 0 No Action metoprolol tartrate 25 mg tablet 25 mg PO DAILY RF: 0 ibuprofen 600 mg tablet 600 mg PO BID RF: 0 mirtazapine 30 mg tablet 30 mg PO QHS RF: 0 donepezil 10 mg tablet 10 mg PO QHS RF: 0 PreserVision AREDS-2 [id number]-mg Capsule 2 tablet PO BID RF: 0 levothyroxine 100 mcg tablet 50 mcg PO DAILY RF: 0 aspirin 325 mg Tablet 325 mg PO DAILY RF: 0 sennosides [Senokot] 8.6 mg Tablet 17.2 mg PO Q12HR Qty: 20 RF: 0 bisacodyl 10 mg Suppository 10 mg HI QID PRN (Reason: Constipation) Qty: 0 RF: 0 acetaminophen 500 mg tablet 1,000 mg PO TID Qty: 60 RF: 0 alprazolam 0.5 mg tablet 0.5 mg PO TID PRN (Reason: Anxiety) Qty: 270 RF: 1 gabapentin [Neurontin] 300 mg capsule 300 mg PO TID Qty: 270 RF: 1 methadone 10 mg tablet 10 mg PO Q12H Qty: 60 RF: 0 Date of admission: 08/27/21 10:13 Primary Care Provider: Je Black Admitting Provider: Fran Wynne Attending physician on admission: Fran Wynne Condition: Improved
--- NOTE | 2021-09-02 16:48 | P.DS_ITS ---
DS: Admitting Diagnosis Discharge Date 09/02/21 Admitting Diagnosis perforated appendix DS: Summary Hospital Course Hospital Course: see dc diagnosis Time Spent with Patient Time attestation: Total time spent providing and/or coordinating discharge services: Time spent: Greater than 30 minutes Exam Narrative: General: alert and oriented Psych: appropriate mood nad affect Eyes: PERRLA Neck: Trachea midline, no new lesions Skin: no changes Lungs: CTA Cardiac: Normal S1,S2, no MGR ABD: soft, nd, nt, nbs Ext: no new lesions, no cce Vasc: Pulses intact DS: Data Data Completed and Pending Completed studies during hospitalization: Pending at discharge 08/27/21 08:19 Surgical [PTH] Routine Discharge Plan Discharge Attending physician on discharge: Eagle Mcrae Consulting providers: Fran Wynne ; Martinez Fofana ; Selena Spencer ; Joe Contreras Discharging Clinician: Eagle Mcrae Patient Disposition: Home, Self-Care Activity: may shower and other - see discharge instructions Diet: regular Wound Care Instructions: change dressing daily Discharge Instructions: General Surgery Discharge Instructions: * Change the dressing over your incision daily with gauze and tape. You may wash over your incision with mild soap and water daily. Do not submerge in water. * Follow-up with Dr. Wynne in our office in 1 week. Call to schedule the appointment ([phone]) * No heavy lifting more than 20 pounds. * Continue increasing activity, it would be good to be up and walking at least three times daily, try work towards this goal. * Antibiotics have been sent to the pharmacy, take all of this medication. * If you have more abdominal pain, fever, or vomiting, please call the office or go to the ER. * May take Tylenol as needed for any incisional pain or discomfort. Patient Instructions: Antibiotic Form, Pain Management (DC), Open Appendectomy (DC), Exploratory Laparotomy (DC) Stand Alone Forms: General Discharge Information Follow-up/Referrals: Fran Wynne MD [Physician] - 1 Week Je Black MD [Primary Care Provider] - Discharge Medications: New amoxicillin-pot clavulanate 875-125 mg tablet 1 tablet PO Q12H Qty: 7 RF: 0 No Action metoprolol tartrate 25 mg tablet 25 mg PO DAILY RF: 0 ibuprofen 600 mg tablet 600 mg PO BID RF: 0 mirtazapine 30 mg tablet 30 mg PO QHS RF: 0 donepezil 10 mg tablet 10 mg PO QHS RF: 0 PreserVision AREDS-2 [id number] hl-viol-ky-mg Capsule 2 tablet PO BID RF: 0 levothyroxine 100 mcg tablet 50 mcg PO DAILY RF: 0 aspirin 325 mg Tablet 325 mg PO DAILY RF: 0 sennosides [Senokot] 8.6 mg Tablet 17.2 mg PO Q12HR Qty: 20 RF: 0 bisacodyl 10 mg Suppository 10 mg NH QID PRN (Reason: Constipation) Qty: 0 RF: 0 acetaminophen 500 mg tablet 1,000 mg PO TID Qty: 60 RF: 0 alprazolam 0.5 mg tablet 0.5 mg PO TID PRN (Reason: Anxiety) Qty: 270 RF: 1 gabapentin [Neurontin] 300 mg capsule 300 mg PO TID Qty: 270 RF: 1 methadone 10 mg tablet 10 mg PO Q12H Qty: 60 RF: 0 Date of admission: 08/27/21 10:13 Primary Care Provider: Je Black Admitting Provider: Fran Wynne Attending physician on admission: Fran Wynne Condition: Improved
== END 2021-09-02 18:10 | disposition home or self-care (01) | DRG 342 ==
LOC: ANHED 06:50 → ANHSURGERY 06:57 → ANHICU 10:59 → ANH3MEDSUR 08-31 10:10 → ANHICU 09-03 16:10 → ANHIMU 09-03 16:10
PROVIDERS: Internal Medicine; Admitting Provider Surgery; Emergency Provider Emergency Medicine; PCP Family Medicine Adolescent Medicine; Visit Provider Chiropractor
PROC: 0DTJ0ZZ Resection of Appendix, Open Approach (ICD-10-PCS; CPT 49000; principal; 2021-08-27 08:00)
DX: K35.20 Acute appendicitis with generalized peritonitis, without abscess (principal); A31.9 Mycobacterial infection, unspecified; J81.1 Chronic pulmonary edema; R47.01 Aphasia; J43.2 Centrilobular emphysema; F17.210 Nicotine dependence, cigarettes, uncomplicated; E87.8 Other disorders of electrolyte and fluid balance, not elsewhere classified; F03.90 Unspecified dementia, unspecified severity, without behavioral disturbance, psychotic disturbance, mood disturbance, and anxiety; R41.0 Disorientation, unspecified; I48.0 Paroxysmal atrial fibrillation; F41.8 Other specified anxiety disorders; E03.9 Hypothyroidism, unspecified; I10 Essential (primary) hypertension; I95.9 Hypotension, unspecified; M19.09 Primary osteoarthritis, other specified site; M85.80 Other specified disorders of bone density and structure, unspecified site; H35.30 Unspecified macular degeneration; Z98.1 Arthrodesis status; Z90.49 Acquired absence of other specified parts of digestive tract; Z79.82 Long term (current) use of aspirin; Z79.899 Other long term (current) drug therapy
CPT/HCPCS: 36415; 36600; 71045; 71250; 74018; 74177; 80053; 81001; 82805; 83605; 83690; 83735; 84100; 85025; 85027; 85610; 85730; 86850; 86900; 86901; 87015; 87040; 87076; 87116; 87206; 88304; 96361; 96365; 96375; 97110; 97116; 97161; 97165; 97530; 97535; 99285; A9270; J0131; J0330; J0610; J1170; J1450; J1650; J1940; J2001; J2060; J2250; J2270; J2370; J2405; J2543; J2704; J2710; J2930; J3010; J3475; J3480; J7030; J7040; J7050; J7120; J7512; Q9967

== ENCOUNTER → 2021-12-30 08:14 | Outpatient (CLI) | payer MEDICARE, SELFPAY ==
--- NOTE | ~2021-12-30 | CT_ITS ---
EXAMINATION: CT diagnostic chest wo con DATE: 12/30/2021 08:28 INDICATION: Mycobacterial infection TECHNIQUE: Computed tomography (CT) of the chest was performed without intravenous contrast. The dose -length product (DLP) was 142.92 mGy-cm. Automated exposure control and iterative reconstruction tech [employer] were employed. COMPARISON: 08/31/2021 FINDINGS: There are chronic calcified masses of the upper lobes. The previously seen areas of cavitat ion in the right upper lobe mass have consolidated and have a more solid appearance, likely necrosis. There is moderate emphysema. The lungs are free of acute opacities. No pleural effusion or pneumotho rax. There is a moderate amount of mucus or aspirated material in the distal trachea and at the origi n of the right mainstem bronchus. Mucous or aspirated material is also noted in the bilateral mainste m bronchi as well as in the right lower lobe. There is a new 3.8 x 2.4 cm pleural-based mass in the m edial aspect of left lower lobe. No pathologically enlarged thoracic lymph nodes are identified. The heart size is normal. Calcified coronary artery atherosclerosis is noted. There is a 2.5 cm cyst of t he liver. There is moderate thoracic spondylosis. IMPRESSION: 1. Stable bilateral upper lobe masses, consistent with old granulomatous disease and/or necrotizing p neumonia. 2. New pleural-based mass in the medial aspect of the left lower lobe, likely round atelectasis. Foll ow-up low-dose CT in three months is recommended. 3. Mucous versus aspirated material in the trachea, mainstem bronchi, and right lower lobe. Reviewed, dictated and finalized at location B. IMPRESSION: 1. Stable bilateral upper lobe masses, consistent with old granulomatous diseas e and/or necrotizing pneumonia. 2. New pleural-based mass in the medial aspect of the left lower lobe, likely r ound atelectasis. Follow-up low-dose CT in three months is recommended. 3. Mucous versus aspirated material in the trachea, mainstem bronchi, and right lower lobe.
== END ==
PROVIDERS: PCP Family Medicine Adolescent Medicine; Visit Provider Internal Medicine Pulmonary Disease
DX: A31.9 Mycobacterial infection, unspecified (principal); R91.8 Other nonspecific abnormal finding of lung field
CPT/HCPCS: 71250

== ENCOUNTER 2022-02-02 10:28 | Inpatient (IN) | payer MEDICARE, SELFPAY ==
[2022-02-02] VITALS (24 sets, daily range): BP systolic 87–144; BP diastolic 47–62; PULSE 0–68; RESP 8–21; TEMP 36.4–36.8; O2SAT 91–97; BMI 14.4
--- NOTE | ~2022-02-02 | XR_ITS ---
EXAMINATION: XR chest 1V portable DATE: 02/02/2022 11:49 INDICATION: Stroke TECHNIQUE: frontal view of the chest was obtained. COMPARISON: Chest radiograph dated chest CT dated 12/30/2021 and chest radiograph dated 08/30/2021 FINDINGS: Mild hyperexpansion of lungs consistent with moderate emphysema better appreciated on prior CT. Stabl e appearance of chronic masslike airspace opacities in bilateral upper lung zones with central calcif ications and associated volume loss and architectural distortion on CT suggests sequela of chronic gr anulomatous disease or pneumoconiosis. Additional masslike opacity at the medial left lower lung zone with appearance on CT most consistent with round atelectasis. There is an additional more streaky at electasis at the left lung base. No new airspace opacities, pulmonary edema, pleural effusion or pneu mothorax. The cardiomediastinal silhouette is normal. Visualized bones and soft tissues are unremarka ble. IMPRESSION: 1. No interval change in chronic region of round atelectasis in the left lower lobe and chronic massl sugar opacities in the bilateral upper lung zones, partially calcified on prior CT favoring sequela of old granulomatous disease or pneumoconiosis. 2. Moderate emphysema. Reviewed, dictated and finalized at location A. IMPRESSION: 1. No interval change in chronic region of round atelectasis in the left lower lobe and chronic masslike opacities in the bilateral upper lung zones, partiall y calcified on prior CT favoring sequela of old granulomatous disease or pneumo coniosis. 2. Moderate emphysema.
--- NOTE | ~2022-02-02 | XR_ITS ---
EXAMINATION: XR abdomen/kub 1V DATE: 02/03/2022 10:09 INDICATION: Acute kidney injury. TECHNIQUE: A supine view of the abdomen on 2 radiographs was obtained. COMPARISON: CT abdomen and pelvis 08/27/2021 FINDINGS: There are no dilated loops of bowel. There is no visible urolithiasis. IMPRESSION: 1. No visible urolithiasis. Reviewed, dictated and finalized at location B. IMPRESSION: 1. No visible urolithiasis.
--- NOTE | ~2022-02-02 | XR_ITS ---
EXAMINATION: XR retrograde pyelo w/stent BI DATE: 02/03/2022 15:37 CDT INDICATION: BILAT RETROGRADES, CYSTO, BILAT STENTS . TECHNIQUE: 11 fluoroscopic images of the abdomen and pelvis were obtained during bilateral retrograde pyelography, cystoscopy, bilateral stent placement performed by the surgeon. I was not present in [facility] operating room. Fluoroscopy exposure time was 47.6 seconds. DAP [id number]. COMPARISON: CT abdomen and pelvis 02/03/2022 FINDINGS: Wire access and contrast injection into the bilateral collecting systems which are both mildly dilate d with calyceal blunting. Bilateral ureteral stent placement, in good position. IMPRESSION: Fluoroscopic documentation of bilateral retrograde pyelography, cystoscopy, and bilateral stent place ment. Please refer to the operative note for complete procedural details . Reviewed, dictated and finalized at location K. IMPRESSION: Fluoroscopic documentation of bilateral retrograde pyelography, cystoscopy, and bilateral stent placement. Please refer to the operative note for complete pro cedural details .
--- NOTE | ~2022-02-02 | CT_ITS ---
EXAMINATION: CT abdomen pelvis wo con DATE: 02/03/2022 10:18 INDICATION: Bilateral hydronephrosis. Acute kidney injury. TECHNIQUE: Computed tomography (CT) of the abdomen and pelvis was performed without intravenous contr ast. Automated exposure control and iterative reconstruction technique were employed. The dose-length product was 191.90 mGy-cm. COMPARISON: CT abdomen and pelvis 08/27/2021, ultrasound 02/02/2022 FINDINGS: The visualized portions of the lung bases demonstrates severe emphysema. There are airspace opacities in left lower lobe and lingula, consistent with pneumonia. There are small pleural effusio ns. There is mild dependent atelectasis on the right. The heart size is normal. There are coronary ar albino calcifications. No pericardial effusion. There are cysts in the kidneys measuring up to 2.6 cm. There are changes of cholecystectomy. Calcifications in the spleen are consistent with old granulomat ous disease. The pancreas and adrenal glands are normal. There is moderate bilateral hydronephrosis. The bladder is decompressed by Quiroz catheter. The prostate is mildly enlarged. There are no dilated loops of bowel. There are changes of appendectomy. There is widespread edema of the intra-abdominal f at and body wall fat, which decreases sensitivity. There is a small volume of ascites. There is lumba r dextroscoliosis and severe spondylosis. IMPRESSION: 1. Airspace opacities in left lower lobe and lingula, consistent with pneumonia. 2. Small pleural effusions. 3. Severe emphysema. 4. Moderate bilateral hydronephrosis. Soft tissue edema obscures the ureters. 5. Small volume of ascites. Reviewed, dictated and finalized at location B. IMPRESSION: 1. Airspace opacities in left lower lobe and lingula, consistent with pneumonia . 2. Small pleural effusions. 3. Severe emphysema. 4. Moderate bilateral hydronephrosis. Soft tissue edema obscures the ureters. 5. Small volume of ascites.
--- NOTE | ~2022-02-02 | CT_ITS ---
EXAMINATION: CT brain wo con INDICATION: Weakness and fatigue, aphasia COMPARISON: 04/29/2019 TECHNIQUE: Standard unenhanced head CT. The dose-length product (DLP) was 605.33 mGy-cm. The mA was a djusted according to patient size. Iterative reconstruction technique was employed. FINDINGS: There is no acute intraparenchymal hemorrhage. No evidence of mass lesion. No evidence of a cute infarction. There is mild periventricular and subcortical hypodensity probably related to small vessel ischemic disease. There is mild prominence of the sulci and ventricles related to cerebral atr ophy. Intracranial calcified cerebral atherosclerosis is noted. There are no extra-axial collections. There is no mass effect or midline shift. Changes in the globes are likely from ocular lens surgery. The visualized sinuses are well aerated. IMPRESSION: 1. No acute intracranial abnormality. 2. Age related findings. Reviewed, dictated and finalized at location A.
--- NOTE | ~2022-02-02 | US_ITS ---
EXAMINATION: US renal BI DATE: 02/02/2022 12:35 INDICATION: Acute renal insufficiency TECHNIQUE: Multiple ultrasound grayscale images of the kidneys were obtained. COMPARISON: CT dated 08/27/2021 FINDINGS: The right kidney measures 11.8 x 5.3 x 4.9 cm. The left kidney measures 12.0 x 6.5 x 7.3 cm. Increase d cortical echogenicity in the kidneys consistent with medical renal disease. There is bilateral hydr onephrosis, moderate severity on the left and mild to moderate on the right. No stones identified. T here is diffuse bladder wall thickening with irregular mucosal contour suggesting trabeculation such as in the setting of chronic outlet obstruction. IMPRESSION: 1. Bilateral hydronephrosis, moderate severity on the left and mild to moderate on the right which c an be seen in the setting of bladder outlet obstruction. Is also suggested by obliteration of the cathie dder wall with diffuse mild bladder wall thickening. 2. Mild increased renal cortical echogenicity consistent with medical renal disease. Reviewed, dictated and finalized at location A. IMPRESSION: 1. Bilateral hydronephrosis, moderate severity on the left and mild to moderat e on the right which can be seen in the setting of bladder outlet obstruction. Is also suggested by obliteration of the bladder wall with diffuse mild bladder wall thickening. 2. Mild increased renal cortical echogenicity consistent with medical renal dis ease.
--- NOTE | 2022-02-02 10:48 | ED.WEAKNESS ---
HPI - Weakness General Chief complaint: Weakness Stated complaint: weakness, slow to respond, last know well Time Seen by Provider: 02/02/22 10:36 Source: family, EMS and RN notes reviewed Mode of arrival: EMS Limitations: clinical condition History of Present Illness HPI Narrative: Patient is 81 years old white female came from home by ambulance. His is telling me that patient was doing okay until he went to bed last night, this morning did not wake up at his normal time which is 4:00 in the morning and she was able to wake him up at 6:30 AM and he was kind of groggy lethargic and weak, patient got his flu shot at 8 AM subsequently noticed that the patient more weak dropping stuff by both hands unable to walk lethargic all over. 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 Patient is not on oxygen, on aspirin, no anticoagulant medication, used to be on hospice for 2 years, off hospice February 2021, history of failure to thrive, not eating enough currently on protein shakes and Ensure, uses a walker at home, currently he is a full code Related Data Home Medications Medication Instructions Recorded Confirmed vit C 250 mg-vit E 90 mg-zinc 40 2 tablet PO BID 04/29/19 10/23/21 mg-copper 1 [id number]-iblrql-nxmzee capsule (PreserVision AREDS-2) ibuprofen 600 mg tablet 600 mg PO BID 07/07/21 10/23/21 metoprolol tartrate 25 mg tablet 25 mg PO DAILY 07/07/21 10/23/21 mirtazapine 30 mg tablet 30 mg PO QHS 07/07/21 10/23/21 aspirin 325 mg tablet 325 mg PO DAILY 08/27/21 10/23/21 levothyroxine 50 mcg tablet 50 mcg PO DAILY 11/27/21 Allergies Allergy/AdvReac Type Severity Reaction Status Date / Time Antihistamines - Alkylamine Allergy Unknown Verified 11/30/21 08:53 Review of Systems Review of Systems: ROS unobtainable: Yes unobtainable due to medical condition PMFSH Past Medical History Medical History Acute appendicitis with generalized peritonitis, without gangrene or abscess Arthritis Depression with anxiety Essential hypertension Hypothyroid Mycobacterial infection, 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 Family History Family History Mother Lung cancer Father Heart disease Acute myocardial infarction Sibling Lung cancer Brain cancer Social History Social History Social History: Resides with his Smoking packs per day: 1 Smoking cigarettes per day: 20.0 Years smoked: 62 Smoking pack-years: 62.00 Smoking status: Current every day smoker Tobacco type: cigarettes Second hand tobacco smoke exposure: Yes Alcohol intake: never Substance use: former Substance use type: does not use Gender identity (if verbalized by the patient): Male Sexual Orientation (if Verbalized by the Patient): Straight or Heterosexual Spiritual care concerns: No Agree to blood products: Yes Exam Narrative: General appearance: Malnourished Skin: Normal color Head: Normocephalic, nontraumatic Eyes: Clear conjunctiva ENT: Oropharynx normal, ears normal, nose normal Neck: Supple, nontender Chest and respiratory: Airway patent, no respiratory distress, no accessory mu
--- NOTE | 2022-02-02 10:51 | ECG_ITS ---
Measurements Intervals [place] Rate: 56 P: 93 WA: 183 QRS: 93 QRSD: 105 T: 81 QT: 418 QTc: 407 Interpretive Statements SINUS BRADYCARDIA BORDERLINE RIGHT AXIS DEVIATION [QRS AXIS > 90] NONSPECIFIC ST AND T-WAVE ABNORMALITY ABNORMAL ECG COMPARED TO ECG 05/04/2019 07:22:40 SINUS BRADYCARDIA NOW PRESENT ST (T WAVE) DEVIATION NOW PRESENT Electronically Signed On 02-02-2022 14:11:00 CDT by Orestes Forrest M.D.
[2022-02-02 11:04] LABS: Basophils Percent Auto 0.1 % (0.2-1.2); Hematocrit 44.1 % (42.0-52.0); Hemoglobin 14.7 g/dL (14.0-18.0); Immature Granulocyte Absolute 0.09 K/mm3 (0.00-0.031); Immature Granulocyte Percent A 0.6 % (0-0.5); Lymphocytes Absolute Auto 1.09 K/mm3 (0.9-3.2); Lymphocytes Percent Auto 7.5 % (18.3-44.2); Mean Corpuscular HGB Conc 33.3 g/dl (32-36); Mean Corpuscular Hemoglobin 31.6 pg (26-34); Mean Corpuscular Volume 94.8 fl (80-100); Mean Platelet Volume 10.2 fl (7.4-10.4); Monocytes Absolute Auto 0.6 K/mm3 (0.1-0.6); Monocytes Percent Auto 3.8 % (2.6-8.5); Neutrophils Absolute Auto 12.9 K/mm3 (1.3-6.7); Platelet Count Result 234 k/mm3 (150-375); Red Blood Count 4.65 M/mm3 (4.6-6.20); Red Cell Distribution Width 13.2 % (11.5-14.5); White Blood Count 14.6 K/mm3 (4.5-10.0)
[2022-02-02 11:25] LABS: Partial Thromboplastin Time 30.2 SECONDS (22.3-36.8); Prothrombin Time 13.1 Seconds (11.1-14.7)
[2022-02-02 11:28] LABS: Troponin I < 0.012 ng/mL (0.000-0.034)
[2022-02-02 11:31] LABS: Alanine Aminotransferase 17 U/L (6-50); Albumin Level 4.3 g/dL (3.5-5.1); Alkaline Phosphatase 98 U/L (38-126); Anion Gap 15 mmol/L (8-16); Aspartate Amino Transferase 44 U/L (17-59); Bilirubin,Total 0.3 mg/dL (0.2-1.3); Calcium 9.1 mg/dL (8.4-10.2); Carbon Dioxide 22 mmol/L (22-30); Chloride 101 mmol/L (98-107); Estimated CRCL calculation 5 ml/min; Estimated Glomerular Filt Rate 7; Glucose 101 mg/dL (65-110); Potassium 6.6 mmol/L (3.4-5.0); Sodium 138 mmol/L (137-145)
[2022-02-02 11:35] LABS: Lactic Acid Reflex 1.1 mmol/L (0.7-2.0)
[2022-02-02] MEDS: DEXTROSE 50% 25 GM/50 ML SYRINGE IV PUSH (12:03)
[2022-02-02] MEDS: INSULIN HUMAN REGULAR (*BKC) 100 UNITS/ML 10 UNITS IV PUSH (12:03)
[2022-02-02] MEDS: SODIUM BICARBONATE 8.4% 50 MEQ/50 ML SYRINGE IV PUSH (12:03)
[2022-02-02] MEDS: CALCIUM GLUCONATE 1,000 MG/10 ML VIAL 1000 MG IV PUSH (12:03)
[2022-02-02] MEDS: SODIUM CHLORIDE 0.9% IV 1,000 ML 999 ML IV CONT (12:04)
[2022-02-02 12:22] LABS: SARS-CoV-2 RNA PCR Negative
[2022-02-02 12:23] LABS: Blood Urea Nitrogen 127 mg/dL (9-20)
--- NOTE | 2022-02-02 13:49 | PM.IMHP ---
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 The patient's son noted that he seemed tired yesterday. His stated this morning she had to wake him up, which is not typical. She knew that he did not look ?right? when he she woke him up. She denies any facial droop pain or any obvious weakness. He complained of his back hurting but did get out of bed and was able to eat breakfast. She then took him to get their scheduled flu shot today. He was weaker walking in and had to sit on his walker seat. She states after he received the flu shot he slept the whole ride home and when he got home he could not even make it to his usual chair, he sat down on a different seat that was closer, which is very not typical for him. She became more concerned when she noticed he was sitting there mimicking smoking a cigarette but did not actually have a cigarette in his hands. She then noticed he was trying to pick an object off the floor but there was nothing there. She wonders if he thought he was smoking a cigarette and thought he dropped it, but he never had one. This prompted her to call her son, who came right over and had to assist the patient in to his vehicle to take him to the ED. Upon presentation, he was mildly bradycardic with heart rate 56, additional vital signs stable, he was afebrile, WBC 14.6, potassium 6.6, BUN 127, creatinine 7.1. He received potassium lowering therapy in the ED. Upon my evaluation of the patient, he did not wake up at all to provide any history. He would grimace with light physical stimuli but did not open his eyes. His does indicate that approximately 3 years ago he had an episode where he was weak and not himself. She was told he did not have a stroke at that time but since then has had issues with intermittent aphasia, which she states is unchanged. His denies any recent urinary symptoms that the patient has mentioned. He previously struggled with incontinence but now no longer requires use of depends. She believes he urinated at home this morning prior to leaving for his flu shot, but states he has not urinated since. 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
--- NOTE | 2022-02-02 13:50 | PC.NURSE ---
Bladder scan at 1349 showed >164ml
[2022-02-02 14:24] LABS: Creatine Kinase 51 U/L (55-170)
[2022-02-02] MEDS: SODIUM CHLORIDE 0.9% IV 1,000 ML 75 ML IV CONT (15:29)
--- NOTE | 2022-02-02 15:34 | ADMGEN ---
This patient, Edin Nguyen, was admitted to Medical Room 341-01. Patient/family oriented to hospital policies and general routines including ID bracelet, bed and alarms, visiting hours, pain management, procedures, bathroom and other care routines, personal items, smoking policy, room service/diet, and visiting hours. Information on how to activate the Rapid Response Team has been discussed. Patient/Family are encouraged to report perceived risks to care and to ask questions if they do not understand what they are told or what they should do.
--- NOTE | 2022-02-02 17:00 | WPDURCON ---
Assessment and Plan Assessment and plan (1) KAT (acute kidney injury): Code(s): N17.9 - Acute kidney failure, unspecified Status: Acute Assessment and Plan: Place catheter, likely the cause of KAT. Will continue to monitor creatinine. (2) Bladder obstruction: Code(s): N32.0 - Bladder-neck obstruction Status: Acute (3) Retention of urine: Code(s): R33.9 - Retention of urine, unspecified Status: Acute Assessment and Plan: Check a UA with reflex to culture, treat for UTI if UA is suspicious of a UTI. I suspect his lethargy and confusion/weakness may be secondary to a UTI caused from retention. (4) BPH (benign prostatic hyperplasia): Code(s): N40.0 - Benign prostatic hyperplasia without lower urinary tract symptoms Status: Acute Assessment and Plan: Start Tamsulosin and Finasteride. Keep contreras in for 7-10 days, then f/u in the office for a voiding trial. Urology Consult Note HPI Date Seen: 02/02/22 Time Seen: 16:00 Requesting Physician: Selena Spencer MD Primary Care Provider: Je Black MD Consult Narrative Reason for consult: Retention/KAT Narrative: Edin Nguyen is a 81 year old male who presented to the ER today after becoming difficult to arouse this morning by his when awakening him. He was lethargic, weak and not communicative. His states she was able to get him dressed and get him to their flu shot appointment's early this morning around 0800am but then he worsened and came to the ER by EMS. His WBC is 14.6, creatinine 7.10 (baseline creatinine is 0.80). No UA or culture has been collected. He is afebrile and not arousable at the bedside. His and children are also at the bedside. His denies that he has difficulty with urination, frequency, urgency or dysuria and hematuria. She does state he started wearing depends recently d/t incontinence. He has never been screened for prostate cancer and has not been diagnosed with BPH. A renal US was done which shows bilateral hydronephrosis and a distended bladder. I got all of my information from the chart and family. 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 Uses walker for ambulation. Previously on hospice, revoked in Feb 2021. His PCP is Dr. Valdez. His , Deyanira, is his surrogate decision maker. He is a full code. Smoking packs per day: 2 Smoking cigarettes per day: 40.0 Years smoked: 62 Smoking pack-years: 124.00 Smoking status: Current every day smoker Alcohol intake: never
[2022-02-02 17:30] LABS: Folic Acid > 20.0 ng/mL (2.76->20)
[2022-02-02] MEDS: NICOTINE (*PBKC) 21 MG PATCH 1 PATCH TRANSDERM (17:39)
[2022-02-02 17:51] LABS: Add Urine Microscopic? YES; Appearance Urine Clear (Clear); Bilirubin Urine Negative (Negative); Blood Urine Negative (Negative); Color Urine Yellow (Yellow); Glucose Urine UA Negative (Negative); Ketones Urine Trace mg/dL (Negative); Leukocyte Esterase Ur Negative LEU/UL (Negative); Nitrate Urine Negative (Negative); Protein Urine 1+ mg/dL (Negative); Specific Grav Ur 1.019 (1.001-1.035); Urobilinogen Urine Negative mg/dL (<2.0); WBC Urine 0-3 /hpf
[2022-02-02 18:05] LABS: Amphetamine Screen Urine Negative (Negative); Barbiturate Screen Urine Negative (Negative); Benzodiazepines Screen Urine Negative (Negative); Cannabinoid Screen Urine Negative (Negative); Cocaine Screen Urine Negative (Negative); Methadone Screen Urine Positive (Negative); Opiate Screen Urine Negative (Negative); Phencyclidine Screen Urine Negative (Negative)
[2022-02-02 18:24] LABS: Anion Gap 18 mmol/L (8-16); Calcium 9.1 mg/dL (8.4-10.2); Carbon Dioxide 21 mmol/L (22-30); Chloride 102 mmol/L (98-107); Estimated CRCL calculation 5 ml/min; Estimated Glomerular Filt Rate 7; Glucose 61 mg/dL (65-110); Potassium 5.6 mmol/L (3.4-5.0); Sodium 141 mmol/L (137-145)
[2022-02-02 18:35] LABS: Blood Urea Nitrogen 129 mg/dL (9-20)
[2022-02-02 19:25] LABS: Thyroid Stimulating Hormone Reflex 0.661 uIU/mL (0.465-4.68)
[2022-02-02] MEDS: methADONE HCL (*CRX) 10 MG TABLET PO (20:58)
[2022-02-02] MEDS: MIRTAZAPINE 30 MG TABLET PO (20:58)
[2022-02-02] MEDS: DONEPEZIL HCL 10 MG TABLET PO (20:58)
[2022-02-02] MEDS: SENNOSIDES 8.6 MG TABLET 17.2 MG PO (21:00)
[2022-02-03] VITALS (19 sets, daily range): BP systolic 84–150; BP diastolic 42–96; PULSE 63–97; RESP 14–20; TEMP 36.6–37.2; O2SAT 90–100; BMI 14.4
--- NOTE | 2022-02-03 05:38 | PC.NURSE ---
PT DISCONNECTED LOPEZ TUBING LEAVING AN UNMEASURED AMOUNT OF URINE IN PT BED. MEDICAL SOCIOLOGIST MEASURED AND WILL CHART WHAT WAS LEFT IN LOPEZ BAG PLUS 1 UNMEASURED VOID. PT CONTINUES TO BE RESTLESS AND PULLS AT IV, TELEMETRY, AND LOPEZ.
[2022-02-03 05:55] LABS: Hematocrit 45.7 % (42.0-52.0); Mean Corpuscular HGB Conc 32.8 g/dl (32-36); Mean Corpuscular Hemoglobin 31.6 pg (26-34); Mean Corpuscular Volume 96.2 fl (80-100); Platelet Count Result 246 k/mm3 (150-375); Red Blood Count 4.75 M/mm3 (4.6-6.20); Red Cell Distribution Width 13.2 % (11.5-14.5); White Blood Count 18.5 K/mm3 (4.5-10.0)
[2022-02-03] MEDS: LEVOTHYROXINE SODIUM 50 MCG TABLET PO (06:05)
[2022-02-03 07:18] LABS: Blood Urea Nitrogen 133 mg/dL (9-20)
[2022-02-03 08:00] LABS: Anion Gap 14 mmol/L (8-16); Calcium 9.3 mg/dL (8.4-10.2); Carbon Dioxide 21 mmol/L (22-30); Chloride 104 mmol/L (98-107); Estimated CRCL calculation 4 ml/min; Estimated Glomerular Filt Rate 7; Glucose 112 mg/dL (65-110); Potassium 7.2 mmol/L (3.4-5.0); Sodium 139 mmol/L (137-145)
--- NOTE | 2022-02-03 08:14 | ECG_ITS ---
Measurements Intervals [place] Rate: 72 P: 70 VA: 158 QRS: 81 QRSD: 111 T: 72 QT: 390 QTc: 428 Interpretive Statements SINUS RHYTHM WITH OCCASIONAL SUPRAVENTRICULAR PREMATURE COMPLEXES MODERATE INTRAVENTRICULAR CONDUCTION DELAY [110+ ms QRS DURATION] ABNORMAL ECG COMPARED TO ECG 02/02/2022 10:40:16 SINUS RHYTHM NOW PRESENT INTRAVENTRICULAR CONDUCTION DELAY NOW PRESENT Electronically Signed On 02-03-2022 10:22:06 CDT by Orestes Forrest M.D.
--- NOTE | 2022-02-03 08:38 | PM.CNNEP ---
Assessment and Plan Assessment and plan (1) KAT (acute kidney injury): Code(s): N17.9 - Acute kidney failure, unspecified Status: Acute Assessment and Plan: The patient has acute kidney injury. His creatinine was normal in August. His renal ultrasound does show bilateral hydronephrosis and a Quiroz catheter was placed. He is not making very much urine. normally if this was acute obstruction then the urine output would be tremendously high. Will get a CT scan of the abdomen and pelvis to make sure there is nothing else going on causing the obstruction of the ureters. Possibly this is been going on for a while and he has an element of ATN Causing the slowness of resolution. He also has very dry mucous membranes and is probably dehydrated. He is getting some IV fluids now. He does seem to have uremic symptoms with his confusion. He has underlying dementia though I think he is worse mentally than he normally is. We can get the CT scan to make sure there is nothing else going on as far as obstruction goes. Will give him some IV fluids and see if we can get his renal function better. If nothing else helps then he may need dialysis. In the meantime will check for other causes of renal failure as well a such as rhabdomyolysis, etc. (2) Bladder obstruction: Code(s): N32.0 - Bladder-neck obstruction Status: Acute Assessment and Plan: He has a Quiroz catheter in. (3) Acute hyperkalemia: Code(s): E87.5 - Hyperkalemia Status: Acute Assessment and Plan: His potassium is back up to 7.2. Will give Lokelma, insulin and glucose. EKG shows a moderate intraventricular conduction delay. Will also give calcium. 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 Troponin was normal. (6) Pure hypercholesterolemia, unspecified: Code(s): E78.00 - Pure hypercholesterolemia, unspecified Status: Acute Assessment and Plan: On no meds for this. (7) Paroxysmal atrial fibrillation: Code(s): I48.0 - Paroxysmal atrial fibrillation Status: Chronic Assessment and Plan: Heart rate is doing okay (8) Essential hypertension: Code(s): I10 - Essential (primary) hypertension Status: Acute Assessment and Plan: systolic ranging from 90-140 (9) Hypothyroid: Qualifiers: Hypothyroidism type: unspecified Qualified Code(s): E03.9 - Hypothyroidism, unspecified Code(s): E03.9 - Hypothyroidism, unspecified Status: Chronic Assessment and Plan: will check a TSH (10) COPD (chronic obstructive pulmonary disease): Code(s): J44.9 - Chronic obstructive pulmonary disease, unspecified Status: Chronic Assessment and Plan: he continues to smoke. History of Present Illness Reason for Consult Consult date: 02/03/22 Chief Complaint Chief complaint: General Weakness/KAT/Hyperkalemia/Failure to Thriv History of Present Illness Narrative: Edin is a very pleasant 81-year-old gentleman who has multiple E medical problems including dementia, depression, paroxysmal atrial fibrillation, COPD, arthritis, history of acute appendicitis, hypertension, hypothyroidism, mycobacterial infection, arthritis. The patient came to the emergency room last evening because of change in mental status. His family found him
[2022-02-03] MEDS: CALCIUM GLUC 1,000 MG/NS 50 ML 1,000 MG/50 ML BAG 100 MG IVPB (08:49)
[2022-02-03 10:01] LABS: Basophils Percent Auto 0.1 % (0.2-1.2); Hematocrit 40.4 % (42.0-52.0); Hemoglobin 13.7 g/dL (14.0-18.0); Immature Granulocyte Absolute 0.13 K/mm3 (0.00-0.031); Immature Granulocyte Percent A 0.7 % (0-0.5); Lymphocytes Absolute Auto 1.59 K/mm3 (0.9-3.2); Lymphocytes Percent Auto 8.6 % (18.3-44.2); Mean Corpuscular HGB Conc 33.9 g/dl (32-36); Mean Corpuscular Hemoglobin 30.9 pg (26-34); Mean Corpuscular Volume 91.2 fl (80-100); Monocytes Absolute Auto 1.2 K/mm3 (0.1-0.6); Monocytes Percent Auto 6.2 % (2.6-8.5); Neutrophils Absolute Auto 15.6 K/mm3 (1.3-6.7); Neutrophils Percent Auto 84.4 % (45.5-73.1); Platelet Count Result 233 k/mm3 (150-375); Red Blood Count 4.43 M/mm3 (4.6-6.20); Red Cell Distribution Width 13.1 % (11.5-14.5); White Blood Count 18.5 K/mm3 (4.5-10.0)
[2022-02-03 10:16] LABS: Creatine Kinase 41 U/L (55-170)
[2022-02-03] MEDS: DEXTROSE 50% 25 GM/50 ML SYRINGE IV PUSH (10:39)
[2022-02-03] MEDS: INSULIN HUMAN REGULAR (*BKC) 100 UNITS/ML 10 UNITS IV PUSH (10:39)
[2022-02-03] MEDS: SODIUM CHLORIDE 0.9% IV 1,000 ML 75 ML IV CONT (10:39)
[2022-02-03] MEDS: SODIUM POLYSTYRENE SULFONONATE 15 GM/60 ML BTL 30 GM PO (10:40)
[2022-02-03 10:43] LABS: Glucose Point of Care 106 mg/dl (65-105)
[2022-02-03] MEDS: ALBUTEROL SULFATE NEB 2.5 MG/3 ML INH 5 MG INHALATION (10:43)
--- NOTE | 2022-02-03 11:24 | WPDUROPN2 ---
Progress Note: A&P Assessment and Plan (1) BPH (benign prostatic hyperplasia): Code(s): N40.0 - Benign prostatic hyperplasia without lower urinary tract symptoms Status: Acute Assessment and Plan: Continue Finasteride, Flomax and Contreras. (2) Retention of urine: Code(s): R33.9 - Retention of urine, unspecified Status: Acute Assessment and Plan: Bladder is decompressed, however creatinine continues to worsen d/t continued bilateral hydro from edematous ureters without obstruction. (3) KAT (acute kidney injury): Code(s): N17.9 - Acute kidney failure, unspecified Status: Acute Assessment and Plan: Worsening creatinine. (4) Bilateral hydronephrosis: Code(s): N13.30 - Unspecified hydronephrosis Status: Acute Assessment and Plan: Obtain Consent: Cystoscopy, bilateral ureteral stent placement, bilateral retrograde pyelogram. Plan to go to the OR today with Dr. Becerra. Keep NPO. Subjective Subjective Date/Time Seen: 02/03/22 11:24 Patient continues to decline despite catheter placement. It is unclear what amount of urine was drained when catheter was placed last night. However, he does have adequate urine output, clear yellow urine. He is awake and alert today. His creatinine is worsening, WBC is worsening as well as potassium, and he was transferred to the IMU today. A stat CT was ordered and shows bilateral ureteral edema without obstruction and a decompressed bladder with contreras in the bladder. Review of Systems Cardiovascular: Cardiovascular: Denies chest pain Respiratory: Respiratory: Reports no additional respiratory complaints Gastrointestinal: Gastrointestinal: Denies abdominal pain, Denies nausea and Denies vomiting Genitourinary: Genitourinary: Denies hematuria, Denies dysuria, Denies flank pain, Denies urinary frequency, Denies urinary hesitancy, Denies urinary incontinence and Denies urinary urgency Exam Const: General: comfortable, alert and awake Resp: Effort & Inspection: normal respiratory effort Cardio: Rate: regular rate GI: GI Palp: Yes Soft to palpation and No Tenderness to palpation present (GI) : General: Yes no CVA tenderness Urinary Catheter: Urinary Catheter: patent and draining and urine clear Extrem: General: no edema Objective Data Vital Signs Vital Signs: Vital Signs - 24 hr 02/02/22 11:54 02/02/22 12:00 02/02/22 12:01 Temperature Pulse Rate 57 L 56 L 55 L Respiratory Rate 10 L 10 L 12 Blood Pressure 119/60 Pulse Oximetry Oxygen Delivery 02/02/22 12:15 02/02/22 12:16 02/02/22 12:31 Temperature Pulse Rate 54 L 55 L 54 L Respiratory Rate 8 L 10 L Blood Pressure 123/51 L 112/53 L Pulse Oximetry Oxygen Delivery 02/02/22 12:32 02/02/22 12:46 02/02/22 13:00 Temperature Pulse Rate 52 L 0 L Respiratory Rate Blood Pressure 104/50 L 99/49 L Pulse Oximetry Oxygen Delivery 02/02/22 13:16 02/02/22 13:31 02/02/22 13:45 Temperature Pulse Rate 0 L Respiratory Rate Blood Pressure 91/47 L 87/50 L Pulse Oximetry Oxygen Delivery 02/02/22 13:46 02/02/22 14:00 02/02/22 14:01 Temperature Pulse Rate Respiratory Rate Blood Pressure 99/48 L 110/49 L Pulse Oximetry 97 97 Oxygen Delivery 02/02/22 14:15 02/02/22 14:16 02/02/22 15:36 Temperature 97.9 F Pulse Rate 68 Respiratory Rate 18 Blood Pressure 100/52 L 134/50 L Pulse Oximetry 96 96 91 Oxygen Delivery 02/02/22 16:47 02/02/22 17:14 02/02/22 16:00 Temperature Pulse Rate 52 L Respiratory Rate Blood Pressure Pulse Oximetry 93 Oxygen Delivery Room Air Room Air 02/02/22 20:03 02/02/22 20:00 02/02/22 23:56 Temperature 97.6 F 97.8 F Pulse Rate 60 68 66 Respiratory Rate 18 20 Blood Pressure 144/53 H 138/61 Pulse Oximetry 93 94 Oxygen Delivery 02/03/22 00:00 02/03/22 04:00 02/03/22 05:50 Temperature 98 F Pulse Rat
[2022-02-03 13:03] LABS: Hematocrit 42.8 % (42.0-52.0); Hemoglobin 14.4 g/dL (14.0-18.0); Mean Corpuscular HGB Conc 33.6 g/dl (32-36); Mean Corpuscular Volume 92.2 fl (80-100); Mean Platelet Volume 10.1 fl (7.4-10.4); Platelet Count Result 237 k/mm3 (150-375); Red Blood Count 4.64 M/mm3 (4.6-6.20); Red Cell Distribution Width 13.2 % (11.5-14.5); White Blood Count 18.3 K/mm3 (4.5-10.0)
[2022-02-03 13:05] LABS: Thyroid Stimulating Hormone Reflex 0.561 uIU/mL (0.465-4.68)
[2022-02-03 13:17] LABS: Anion Gap 15 mmol/L (8-16); Calcium 9.2 mg/dL (8.4-10.2); Carbon Dioxide 20 mmol/L (22-30); Chloride 105 mmol/L (98-107); Estimated CRCL calculation 4 ml/min; Estimated Glomerular Filt Rate 7; Glucose 96 mg/dL (65-110); Potassium 5.3 mmol/L (3.4-5.0); Sodium 140 mmol/L (137-145)
[2022-02-03 13:24] LABS: Blood Urea Nitrogen 131 mg/dL (9-20)
[2022-02-03 13:29] LABS: Creatinine Urine 64.4 mg/dL; Total Protein Urine Random 12 mg/dL; Ur Ttl Prot Creatinine Ratio 0.19 mg/mg (0-0.20); Urea Random Urine 735 MG/DL
[2022-02-03 13:32] LABS: Sodium Urine Random 55 meq/L
--- NOTE | 2022-02-03 14:27 | WPDANESEPPF ---
Anes - Initial Pre Proc Eval Procedure: Operation Date: 02/03/22 15:00 Proposed Procedures p Cystoscopy,Bilateral Retrograde Pyelogram,Bilateral Stent Placement - Kenneth Becerra MD Date/Time: 02/03/22 14:27 Surgeon: Concepcion Rubin PA-C Pre Op Diagnosis: General Weakness/KAT/Hyperkalemia/Failure to Thriv Patient Data Age: 81 Gender: M Height: 1.73 m Weight: 43 kg Last Vital Signs Temp 37.2 C 02/03/22 14:05 Pulse 84 02/03/22 14:05 Resp 18 02/03/22 14:05 BP 130/55 L 02/03/22 14:05 Pulse Ox 90 02/03/22 14:05 O2 Del Method Room Air 02/03/22 14:05 Allergies Allergy/AdvReac Type Severity Reaction Status Date / Time Antihistamines - Alkylamine Allergy Unknown Verified 11/30/21 08:53 Home Medications Medication Instructions Recorded Confirmed Type vit C 250 mg-vit E 90 mg-zinc 40 2 tablet PO BID 04/29/19 02/02/22 History mg-copper 1 sy-bnswoa-wujqjw capsule (PreserVision AREDS-2) sennosides 8.6 mg tablet (Senokot) 17.2 mg PO Q12HR #20 tabs 06/09/19 02/02/22 Rx alprazolam 0.5 mg tablet 0.5 mg PO TID PRN Anxiety #270 tabs 04/27/21 02/02/22 Rx ibuprofen 600 mg tablet 600 mg PO BID 07/07/21 02/02/22 History metoprolol tartrate 25 mg tablet 25 mg PO DAILY 07/07/21 02/02/22 History mirtazapine 30 mg tablet 30 mg PO QHS 07/07/21 02/02/22 History gabapentin 300 mg capsule 300 mg PO TID #270 caps 08/11/21 02/02/22 Rx (Neurontin) aspirin 325 mg tablet 325 mg PO DAILY 08/27/21 02/02/22 History levothyroxine 50 mcg tablet 50 mcg PO DAILY 11/27/21 02/02/22 History donepezil 10 mg tablet 10 mg PO QHS #90 tabs 12/29/21 02/02/22 Rx methadone 10 mg tablet 10 mg PO Q12H #60 tabs 02/01/22 02/02/22 Rx acetaminophen 500 mg tablet 1,000 mg PO HS 02/02/22 02/02/22 History Laboratory Tests 02/02/22 02/02/22 02/02/22 10:55 17:34 17:34 WBC RBC Hgb Hct MCV MCH MCHC RDW Plt Count MPV Immature Gran % (Auto) Neut % (Auto) Lymph % (Auto) [place] % (Auto) Eos % (Auto) Baso % (Auto) Lymph # (Auto) [place] # (Auto) Eos # (Auto) Baso # (Auto) Abs Immat Gran (auto) Absolute Neuts (auto) Absolute Nucleated RBC Nucleated RBC % Sodium 141 mmol/L mmol/L (137-145) Potassium 5.6 mmol/L H mmol/L (3.4-5.0) Chloride 102 mmol/L mmol/L (98-107) Carbon Dioxide 21 mmol/L L mmol/L (22-30) Anion Gap 18 mmol/L H mmol/L (8-16) BUN 129 mg/dL H mg/dL (9-20) Creatinine 7.20 mg/dL H mg/dL (0.7-1.3) Estim Creat Clear Calc 5 ml/min ml/min Estimated GFR 7 L (59 - ) Glucose 61 mg/dL L mg/dL (65-110) POC Capillary Glucose Calcium 9.1 mg/dL mg/dL (8.4-10.2) Total Creatine Kinase Vitamin B12 842.0 pg/mL pg/mL (239-931) Folate > 20.0 ng/mL H ng/mL (2.76->20) TSH (Reflex) 0.661 uIU/mL uIU/mL (0.465-4.68) Urine Color Urine Appearance Urine pH Ur Specific [place] Urine Protein Urine Glucose (UA) Urine Ketones Ur Blood (Man) Urine Nitrate Urine Bilirubin Urine Urobilinogen Leukocyte Esterase Rfl Urine RBC Urine WBC U Random Total Protein Ur Random Sodium Ur Random Urea Urine Total Volume Urine Creatinine Protein/Creat Ratio 2 Urine Opiates Screen Urine Methadone Screen Ur Barbiturates Screen Ur Phencyclidine Scrn Ur Amphetamine Screen U Benzodiazepi
[2022-02-03] MEDS: SODIUM CHLORIDE 0.9% IV 1,000 ML 30 ML IV CONT (14:45)
--- NOTE | 2022-02-03 15:21 | WPDHPUPDATE1 ---
History and Physical Update Update Date/Time: 02/03/22 15:21 History and Physical has been reviewed, including an updated exam of the patient. There are NO changes in the patient's condition. Risks, benefits, and alternatives have been discussed and questions answered. Patient agrees to proceed with procedure. Proceed with cysto, bilateral retrogrades, bilateral ureteroscopy
[2022-02-03] MEDS: ceFAZolin 2 GM/D5W 50 ML 2 GM/50 ML BAG IVPB (15:27)
--- NOTE | 2022-02-03 15:52 | PC.NURSE ---
This patient, Edin Nguyen, was received from [facility] on 02/03/22 at 0852. Patient/family oriented to unit policies and routines. Report received from Elizabeth GALVAN.
--- NOTE | 2022-02-03 15:56 | P.PNIM_ITS ---
Progress Note: A&P Assessment and Plan (1) KAT (acute kidney injury): Code(s): N17.9 - Acute kidney failure, unspecified Status: Acute Assessment and Plan: Creatinine is 7.1 with BUN 127 on presentation. Review of prior labs demonstrates baseline creatinine to be 0.8-0.9. * Renal ultrasound showed bilateral hydronephrosis with moderate severity on the left and [id number] on the right which can be seen in the setting of bladder outlet obstruction with obliteration of bladder wall and diffuse mild bladder wall thickening. * No improvement in creatinine despite decompression of bladder Quiroz catheter * CT of the abdomen/pelvis obtained today which demonstrates moderate bilateral hydronephrosis and soft tissue edema obscuring the ureters * Planning for cystoscopy with bilateral ureteral stent placement today * Continue IV fluids * Appreciate urology and nephrology consultation (2) Bilateral hydronephrosis: Code(s): N13.30 - Unspecified hydronephrosis Status: Acute Assessment and Plan: See plan above. (3) Acute hyperkalemia: Code(s): E87.5 - Hyperkalemia Status: Acute Assessment and Plan: Potassium 6.6 on presentation * S/p calcium gluconate, insulin dextrose, Kayexalate in the ED with improvement in potassium * Monitor on telemetry * Appreciate nephrology input * Today potassium elevated at 7.2 * Repeat calcium gluconate, insulin, dextrose, Kayexalate, albuterol. Patient moved to IMU (4) Lethargy: Code(s): R53.83 - Other fatigue Status: Acute Assessment and Plan: Improved. Patient extremely fatigued, weak, not himself per family * Does not appear to have signs of acute infection, however does have worsening leukocytosis. No evidence of UTI. Concern for pneumonia on CT of abdomen/pelvis in the left lower lobe and lingula. Reviewed imaging results with pulmonology and not felt to be consistent with acute infection and no need for antibiotics. * Head CT with no acute findings * Likely this is due to uremia with BUN markedly elevated to 133 and anticipate improvement with resolution of obstruction * Less likely is polypharmacy/medication adverse effect. Patient on benzodiazepines, chronic narcotics however no report of taking extra medications and has been on this regimen for many years. * Doubt adverse effect from influenza vaccination received yesterday as symptoms started prior to vaccine administration. * Monitor mental status closely. * TSH, B12, folate within normal limits (5) Mycobacterial infection, non-TB: Code(s): A31.9 - Mycobacterial infection, unspecified Status: Acute Assessment and Plan: Being followed as an outpatient by pulmonology * Patient is maintaining adequate oxygen saturations on room air * CXR demonstrates no acute changes * Lower lung lobes reviewed on CT of the abdomen/pelvis, consistent with prior imaging. No need for intervention at this time * Continue with outpatient follow-up (6) Tobacco abuse: Code(s): Z72.0 - Tobacco use Status: Acute Assessment and Plan: Patient smokes 2 packs per day. 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
--- NOTE | 2022-02-03 15:56 | PM.IMPN ---
Progress Note: A&P Assessment and Plan (1) KAT (acute kidney injury): Code(s): N17.9 - Acute kidney failure, unspecified Status: Acute Assessment and Plan: Creatinine is 7.1 with BUN 127 on presentation. Review of prior labs demonstrates baseline creatinine to be 0.8-0.9. Renal ultrasound showed bilateral hydronephrosis with moderate severity on the left and [id number] on the right which can be seen in the setting of bladder outlet obstruction with obliteration of bladder wall and diffuse mild bladder wall thickening. No improvement in creatinine despite decompression of bladder Quiroz catheter CT of the abdomen/pelvis obtained today which demonstrates moderate bilateral hydronephrosis and soft tissue edema obscuring the ureters Planning for cystoscopy with bilateral ureteral stent placement today Continue IV fluids Appreciate urology and nephrology consultation (2) Bilateral hydronephrosis: Code(s): N13.30 - Unspecified hydronephrosis Status: Acute Assessment and Plan: See plan above. (3) Acute hyperkalemia: Code(s): E87.5 - Hyperkalemia Status: Acute Assessment and Plan: Potassium 6.6 on presentation S/p calcium gluconate, insulin dextrose, Kayexalate in the ED with improvement in potassium Monitor on telemetry Appreciate nephrology input Today potassium elevated at 7.2 Repeat calcium gluconate, insulin, dextrose, Kayexalate, albuterol. Patient moved to IMU (4) Lethargy: Code(s): R53.83 - Other fatigue Status: Acute Assessment and Plan: Improved. Patient extremely fatigued, weak, not himself per family Does not appear to have signs of acute infection, however does have worsening leukocytosis. No evidence of UTI. Concern for pneumonia on CT of abdomen/pelvis in the left lower lobe and lingula. Reviewed imaging results with pulmonology and not felt to be consistent with acute infection and no need for antibiotics. Head CT with no acute findings Likely this is due to uremia with BUN markedly elevated to 133 and anticipate improvement with resolution of obstruction Less likely is polypharmacy/medication adverse effect. Patient on benzodiazepines, chronic narcotics however no report of taking extra medications and has been on this regimen for many years. Doubt adverse effect from influenza vaccination received yesterday as symptoms started prior to vaccine administration. Monitor mental status closely. TSH, B12, folate within normal limits (5) Mycobacterial infection, non-TB: Code(s): A31.9 - Mycobacterial infection, unspecified Status: Acute Assessment and Plan: Being followed as an outpatient by pulmonology Patient is maintaining adequate oxygen saturations on room air CXR demonstrates no acute changes Lower lung lobes reviewed on CT of the abdomen/pelvis, consistent with prior imaging. No need for intervention at this time Continue with outpatient follow-up (6) Tobacco abuse: Code(s): Z72.0 - Tobacco use Status: Acute Assessment and Plan: Patient smokes 2 packs per day. 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 The patient is more alert today. He states that he is feeling well. He has no pain. He denies nausea or vomiting. States he ate a good breakfast this morning. He does have some mild confusion. He was A&O x2 during m
[2022-02-03] MEDS: LIDOCAINE HCL 2% GEL UROJET 10 ML PKG MUCOUS MEM (16:10)
--- NOTE | 2022-02-03 16:11 | W.PM.PROC2 ---
Procedure Note - Detailed Date of Procedure 02/03/22 Pre-op Diagnosis Bilateral hydronephrosis with renal insufficiency Post-op Diagnosis Same Procedure Performed Cysto bilateral pyelograms, bilateral ureteral stent placements Surgeon Kenneth Becerra MD Anesthesia General Description of Procedure Patient was taken the operative suite correctly identified. Once anesthesia was obtained was placed in dorsal lithotomy position and prepped draped usual sterile fashion. Twenty-two [place] scope inserted the bladder. The prostate did not appear obstructive in nature the bladder was heavily trabeculated. Both ureteral orifices were visualized. It was difficult to maintain visualization as the bladder was billy a lot. As such we simply were advanced a wire up into the kidney. A [place] was inserted over this to get a pyelogram of the kidney. There was only mild caliectasis in the right kidney. A 6 [place] stent had difficulty passing through the UO. As such we placed a 4.8 [place] contour stent with the proximal end coiled in the renal pelvis and the distal in the bladder. Similar procedure was placed on the left side. Another 4.8 contour stent was placed. 2% viscous lidocaine was inserted urethra and a 16 [place] Quiroz was inserted. He is taken to recovery room. Estimated Blood Loss 0 Drains Yes Packing No Pathology None sent Complications No immediate complications Condition Stable Disposition PACU
[2022-02-03] MEDS: methADONE HCL (*CRX) 10 MG TABLET PO (21:28)
[2022-02-03] MEDS: DONEPEZIL HCL 10 MG TABLET PO (21:47)
[2022-02-03] MEDS: MIRTAZAPINE 30 MG TABLET PO (21:47)
[2022-02-04] VITALS (16 sets, daily range): BP systolic 116–131; BP diastolic 52–76; PULSE 77–133; RESP 12–20; TEMP 36.1–37.2; O2SAT 92–97
[2022-02-04] MEDS: ALPRAZolam (*CRX) 0.5 MG TABLET PO
[2022-02-04] MEDS: SODIUM CHLORIDE 0.9% IV 1,000 ML 75 ML IV CONT ×2 (01:12→16:49)
[2022-02-04 05:13] LABS: Hematocrit 40.4 % (42.0-52.0); Hemoglobin 13.5 g/dL (14.0-18.0); Mean Corpuscular HGB Conc 33.4 g/dl (32-36); Mean Corpuscular Hemoglobin 31.8 pg (26-34); Mean Corpuscular Volume 95.1 fl (80-100); Mean Platelet Volume 9.8 fl (7.4-10.4); Platelet Count Result 214 k/mm3 (150-375); Red Blood Count 4.25 M/mm3 (4.6-6.20); Red Cell Distribution Width 13.3 % (11.5-14.5); White Blood Count 14.8 K/mm3 (4.5-10.0)
[2022-02-04] MEDS: LEVOTHYROXINE SODIUM 50 MCG TABLET PO (05:34)
[2022-02-04 05:35] LABS: Albumin Level 3.1 g/dL (3.5-5.1); Anion Gap 7 mmol/L (8-16); Blood Urea Nitrogen 72 mg/dL (9-20); Calcium 8.5 mg/dL (8.4-10.2); Carbon Dioxide 25 mmol/L (22-30); Chloride 116 mmol/L (98-107); Estimated CRCL calculation 12 ml/min; Estimated Glomerular Filt Rate 23; Glucose 108 mg/dL (65-110); Phosphorus 4.4 mg/dL (2.5-4.5); Potassium 3.9 mmol/L (3.4-5.0); Sodium 148 mmol/L (137-145)
--- NOTE | 2022-02-04 07:29 | PM.PNNEP ---
Progress Note: A&P Assessment and Plan (1) KAT (acute kidney injury): Code(s): N17.9 - Acute kidney failure, unspecified Status: Acute Assessment and Plan: The patient has acute kidney injury. His creatinine was normal in August. Renal u/s bilateral hydro U 'lyes nonprerenal UA bland CK 41 contreras placed but not much happened. saw again (thank you!) and took to surgery and placed stents. now good U.O. and all numbers better. continue ivfs and bladder/kidney drainage. 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 Troponin was normal. (5) Pure hypercholesterolemia, unspecified: Code(s): E78.00 - Pure hypercholesterolemia, unspecified Status: Acute Assessment and Plan: On no meds for this. (6) Paroxysmal atrial fibrillation: Code(s): I48.0 - Paroxysmal atrial fibrillation Status: Chronic Assessment and Plan: Heart rate is doing okay (7) Essential hypertension: Code(s): I10 - Essential (primary) hypertension Status: Acute Assessment and Plan: systolic ranging from 118 to 146 in the last 24 hours (8) Hypothyroid: Qualifiers: Hypothyroidism type: unspecified Qualified Code(s): E03.9 - Hypothyroidism, unspecified Code(s): E03.9 - Hypothyroidism, unspecified Status: Chronic Assessment and Plan: will check a TSH (9) COPD (chronic obstructive pulmonary disease): Code(s): J44.9 - Chronic obstructive pulmonary disease, unspecified Status: Chronic Assessment and Plan: he continues to smoke. Subjective Date/time seen: 02/04/22 07:29 Interval history: pt is calmer and more comfortable today Exam Narrative: WDWN in NAD mucus membranes still dry skin no rash head ncat lungs clear cor irreg irreg rhythm, rate controlled, no rub abd BS+ nontender and soft ext no edema. Objective Data Vital Signs Vital Signs: Vital Signs - 24 hr 02/03/22 09:22 02/03/22 10:43 02/03/22 10:47 Temperature 37.1 C Pulse Rate 63 71 71 Respiratory Rate 16 20 18 Blood Pressure 150/56 H Pulse Oximetry 92 91 Oxygen Delivery Room Air Oxygen Flow Rate 02/03/22 10:55 02/03/22 12:00 02/03/22 14:05 Temperature 37.1 C 37.2 C Pulse Rate 81 77 84 Respiratory Rate 20 16 18 Blood Pressure 142/77 H 130/55 L Pulse Oximetry 93 90 Oxygen Delivery Room Air Oxygen Flow Rate 02/03/22 08:00 02/03/22 12:00 02/03/22 12:00 Temperature Pulse Rate 84 Respiratory Rate Blood Pressure Pulse Oximetry Oxygen Delivery Room Air Room Air Oxygen Flow Rate 02/03/22 14:00 02/03/22 16:18 02/03/22 16:30 Temperature Pulse Rate 80 70 71 Respiratory Rate 14 14 Blood Pressure 84/42 L 90/45 L Pulse Oximetry 99 100 Oxygen Delivery Simple Face Mask Simple Face Mask Oxygen Flow Rate 10 10 02/03/22 16:45 02/03/22 17:00 02/03/22 17:15 Temperature Pulse Rate 82 76 71 Respiratory Rate 18 18 16 Blood Pressure 146/96 H 136/57 L 134/48 L Pulse Oximetry 97 98 96 Oxygen Delivery Simple Face Mask Nasal Cannula Nasal Cannula Oxygen Flow Rate 10 2 2 02/03/22 18:00 02/03/22 18:00 02/03/22 20:00 Temperature 36.9 C 37.0 C Pulse Rate 88 84 86 Respirato
--- NOTE | 2022-02-04 07:58 | WPDANESPN ---
Anes - Prog Note Post-Op Date/Time: 02/04/22 07:58 Cardiovascular status: normal Respiratory status: normal Airway patency: baseline Mental status: baseline Post-Op hydration status: normal Vital Signs: Last Vital Signs Temp 36.1 C L 02/04/22 04:00 Pulse 77 02/04/22 06:00 Resp 14 02/04/22 04:00 BP 131/76 02/04/22 04:00 Pulse Ox 97 02/04/22 04:00 O2 Del Method Room Air 02/04/22 04:00 O2 Flow Rate 2 02/03/22 17:15 Pain Score (VAS): 0 I/O: Intake & Output 02/03/22 02/03/22 02/04/22 15:59 23:59 07:59 Intake Total 1550 Output Total 425 492 6017 Balance -250 920 -3000 Laboratory Tests 02/04/22 05:02 02/04/22 05:02 02/03/22 02/03/22 02/03/22 06:41 09:42 09:42 WBC 18.5 H RBC 4.43 L Hgb 13.7 L Hct 40.4 L MCV 91.2 D MCH 30.9 MCHC 33.9 RDW 13.1 Plt Count 233 MPV 10.0 Immature Gran % (Auto) 0.7 H Neut % (Auto) 84.4 H Lymph % (Auto) 8.6 L Keith % (Auto) 6.2 Eos % (Auto) 0.0 Baso % (Auto) 0.1 L Lymph # (Auto) 1.59 Keith # (Auto) 1.2 H Eos # (Auto) 0.0 Baso # (Auto) 0.0 Abs Immat Gran (auto) 0.13 H Absolute Neuts (auto) 15.6 H Absolute Nucleated RBC 0.0 Nucleated RBC % 0.0 Sodium 139 Potassium 7.2 H* Chloride 104 Carbon Dioxide 21 L Anion Gap 14 BUN Creatinine 7.50 H Estim Creat Clear Calc 4 Estimated GFR 7 L Glucose 112 H POC Capillary Glucose Calcium 9.3 Phosphorus Total Creatine Kinase 41 L Albumin TSH (Reflex) U Random Total Protein Ur Random Sodium Ur Random Urea Urine Total Volume Urine Creatinine Protein/Creat Ratio 2 02/03/22 02/03/22 02/03/22 09:42 10:40 12:36 WBC 18.3 H RBC 4.64 Hgb 14.4 Hct 42.8 MCV 92.2 MCH 31.0 MCHC 33.6 RDW 13.2 Plt Count 237 MPV 10.1 Immature Gran % (Auto) Neut % (Auto) Lymph % (Auto) Keith % (Auto) Eos % (Auto) Baso % (Auto) Lymph # (Auto) Keith # (Auto) Eos # (Auto) Baso # (Auto) Abs Immat Gran (auto) Absolute Neuts (auto) Absolute Nucleated RBC Nucleated RBC % Sodium Potassium Chloride Carbon Dioxide Anion Gap BUN Creatinine Estim Creat Clear Calc Estimated GFR Glucose POC Capillary Glucose 106 H Calcium Phosphorus Total Creatine Kinase Albumin TSH (Reflex) 0.561 U Random Total Protein Ur Random Sodium Ur Random Urea Urine Total Volume Urine Creatinine Protein/Creat Ratio 2 02/03/22 02/03/22 02/04/22 12:36 13:07 05:02 WBC RBC Hgb Hct MCV MCH MCHC RDW Plt Count MPV Immature Gran % (Auto) Neut % (Auto) Lymph % (Auto) Keith % (Auto) Eos % (Auto) Baso % (Auto) Lymph # (Auto) Keith # (Auto) Eos # (Auto) Baso # (Auto) Abs Immat Gran (auto) Absolute Neuts (auto) Absolute Nucleated RBC Nucleated RBC % Sodium 140 148 H Potassium 5.3 H 3.9 Chloride 105 116 H Carbon Dioxide 20 L 25 Anion Gap 15 7 L BUN 131 H 72 H D Creatinine 7.30 H 2.70 H Estim Creat Clear Calc 4 12 Estimated GFR 7 L 23 L Glucose 96 108 POC Capillary Glucose Calcium 9.2 8.5 Phosphorus 4.4 Total Creatine Kinase Albumin 3.1 L TSH (Reflex) U Random Total Protein 12 Ur Random Sodium 55 Ur Random Urea 735 Urine Total Volume Cancelled Urine Creatinine 64.4 Protein/Creat Ratio 2 0.19 02/04/22 05:02 WBC 14.8 H RBC 4.25 L Hgb 13.5 L Hct 40.4 L MCV 95.1 MCH 31.8 MCHC 33.4 RDW 13.3 Plt Count 214 MPV 9.8 Immature Gran % (Auto) Neut % (Auto) Lymph % (Auto) Keith % (Auto) Eos % (Auto) Baso % (Auto) Lymph # (Auto) Keith # (Auto) Eos # (Auto) Baso # (Auto) Abs Immat Gran (auto) Absolute Neuts (auto) Absolute Nucleated RBC Nucleated RBC % Sodium Potassium Chloride Ca
[2022-02-04] MEDS: methADONE HCL (*CRX) 10 MG TABLET PO ×2 (09:42→20:20)
[2022-02-04] MEDS: OPTI-GEN TAB 2 TABLET PO ×2 (09:42→16:49)
[2022-02-04] MEDS: SENNOSIDES 8.6 MG TABLET 17.2 MG PO ×2 (09:42→20:20)
[2022-02-04] MEDS: NICOTINE (*PBKC) 21 MG PATCH 1 PATCH TRANSDERM (09:42)
[2022-02-04] MEDS: ASPIRIN 325 MG TABLET PO (09:42)
[2022-02-04] MEDS: FINASTERIDE 5 MG TABLET PO (09:42)
[2022-02-04] MEDS: GABAPENTIN 300 MG CAPSULE PO ×3 (09:42→16:49)
[2022-02-04] MEDS: TAMSULOSIN HCL 0.4 MG CAPSULE PO (09:43)
--- NOTE | 2022-02-04 12:05 | PCNFU ---
Nutrition Follow-Up Complete: Increased Energy Needs as related to COPD as evidenced by BMI 14.4 Meet estimated nutritional needs Goal: goal not met. Pt's diet has just been advanced; continue original goal. Nutritional supplement ensure enlive BID, provides 350kcal and 20g protein Pt current nutrition is Regular diet. Last recorded weight is 43 kg. Bowel Motility: 02/04/2022, diarrhea since 02/03 Labs Reviewed: Hgb: 13.5, Hct: 40.4, Alb: 3.1, Na: 148, GFR: 23, BUN: 72, Cr: 2.7 Meds Noted:xanax, aricept, prosar, neuronin, synthyroid, methodone, remeron, ocuvite, nicoderm, flomax Skin: no wounds, skin is dry and thin Additional Notes: expressed concerns about pt's intake, assured pt will be receiving a nutritional supplement to help him get his needs. says she was told by her 's previous hospice nurses and doctors to provide pt with 100g protein(hospice revoked 2020). Explained to that based on his wt, an appropriate protein recommendation is 43-52g protein (1-1.2g protein per kg). Will monitor every 5 days.
--- NOTE | 2022-02-04 12:34 | PCNSR ---
On 02/04/22, the student, Carlos Taveras, provided care and completed [facility] on this [facility]. I have reviewed the student's documentation and agree with the findings.
--- NOTE | 2022-02-04 15:36 | WPDUROPN2 ---
Progress Note: A&P Assessment and Plan (1) Bilateral hydronephrosis: Code(s): N13.30 - Unspecified hydronephrosis Status: Acute Assessment and Plan: Will plan to get imaging in a few days to see if there is improvement with ureteral edema. Stents appear to be working well as creatinine is improving drastically. Stents will remain in place for a few weeks, then be removed in office determined by imaging and Dr. Becerra. (2) BPH (benign prostatic hyperplasia): Code(s): N40.0 - Benign prostatic hyperplasia without lower urinary tract symptoms Status: Acute Assessment and Plan: Continue Flomax and FInasteride, we will plan to do a voiding trial prior to leaving the hospital. (3) Retention of urine: Code(s): R33.9 - Retention of urine, unspecified Status: Acute (4) KAT (acute kidney injury): Code(s): N17.9 - Acute kidney failure, unspecified Status: Acute Assessment and Plan: Improving, will monitor until baseline. Subjective Subjective Date/Time Seen: 02/04/22 15:36 Cysto bilateral pyelograms, bilateral ureteral stent placements Patient doing well, alert and sitting up in bed, tolerating stents and diet well. Creatinine is significantly improved today as well as WBC. Creatinine is down from 7.30 to 2.70 and WBC is 14.8. UA was negative and not concerning for a UTI, he is afebrile. Review of Systems Cardiovascular: Cardiovascular: Denies chest pain Respiratory: Respiratory: Reports no additional respiratory complaints Gastrointestinal: Gastrointestinal: Denies abdominal pain, Denies nausea and Denies vomiting Genitourinary: Genitourinary: Reports hematuria and Denies flank pain Exam Const: General: cooperative, comfortable and malnourished Resp: Effort & Inspection: normal respiratory effort Cardio: Rate: regular rate GI: GI Palp: Yes Soft to palpation and No Tenderness to palpation present (GI) : General: Yes no CVA tenderness Urinary Catheter: Urinary Catheter: patent and draining, urine dark and urine red Extrem: Right lower extremity: no edema Left lower extremity: no edema Objective Data Vital Signs Vital Signs: Vital Signs - 24 hr 02/03/22 16:18 02/03/22 16:30 02/03/22 16:45 Temperature Pulse Rate 70 71 82 Respiratory Rate 14 14 18 Blood Pressure 84/42 L 90/45 L 146/96 H Pulse Oximetry 99 100 97 Oxygen Delivery Simple Face Mask Simple Face Mask Simple Face Mask Oxygen Flow Rate 10 10 10 02/03/22 17:00 02/03/22 17:15 02/03/22 18:00 Temperature Pulse Rate 76 71 88 Respiratory Rate 18 16 Blood Pressure 136/57 L 134/48 L Pulse Oximetry 98 96 Oxygen Delivery Nasal Cannula Nasal Cannula Oxygen Flow Rate 2 2 02/03/22 18:00 02/03/22 20:00 02/03/22 20:00 Temperature 98.4 F 98.6 F Pulse Rate 84 86 77 Respiratory Rate 16 18 Blood Pressure 127/90 138/61 Pulse Oximetry 97 94 Oxygen Delivery Oxygen Flow Rate 02/03/22 20:00 02/03/22 23:37 02/03/22 22:00 Temperature 98.4 F Pulse Rate 87 97 Respiratory Rate 14 Blood Pressure 125/81 Pulse Oximetry 94 97 Oxygen Delivery Room Air Oxygen Flow Rate 02/04/22 00:00 02/04/22 00:00 02/04/22 01:55 Temperature Pulse Rate 124 H 115 H Respiratory Rate Blood Pressure Pulse Oximetry 97 Oxygen Delivery Room Air Oxygen Flow Rate 02/04/22 04:00 02/04/22 04:00 02/04/22 04:00 Temperature 97 F L Pulse Rate 101 H 85 Respiratory Rate 14 Blood Pressure 131/76 Pulse Oximetry 97 97 Oxygen Delivery Room Air Oxygen Flow Rate 02/04/22 06:00 02/04/22 08:06 02/04/22 08:00 Temperature 97.8 F Pulse Rate 77 95 Respiratory Rate 12 Blood Pressure 118/55 L Pulse Oximetry 95 Oxygen Delivery Room Air Oxygen Flow Rate 02/04/22 08:00 02/04/22 10:00 02/04/22 12:00 Temperature Pulse Rate 93 101 H Respiratory Rate Blood Pressure Pulse Oximetry Oxygen Delivery Room Air
--- NOTE | 2022-02-04 16:28 | P.PNIM_ITS ---
Progress Note: A&P Assessment and Plan (1) KAT (acute kidney injury): Code(s): N17.9 - Acute kidney failure, unspecified Status: Acute Assessment and Plan: Creatinine 7.1 with BUN 127 on presentation. Review of prior labs demonstrates baseline creatinine to be 0.8-0.9. * Renal ultrasound showed bilateral hydronephrosis with moderate severity on the left and [id number] on the right which can be seen in the setting of bladder outlet obstruction with obliteration of bladder wall and diffuse mild bladder wall thickening. * CT of the abdomen/pelvis obtained today which demonstrates moderate bilateral hydronephrosis and soft tissue edema obscuring the ureters * Significant improvement in renal function following ureteral stent placement. Continue Quiroz catheter, tamsulosin, finasteride * Creatinine improved to 2.5 today * Continue IV fluids * Appreciate urology and nephrology consultation (2) Bilateral hydronephrosis: Code(s): N13.30 - Unspecified hydronephrosis Status: Acute Assessment and Plan: See plan above. S/p cystoscopy with bilateral ureteral stent placement (3) Acute hyperkalemia: Code(s): E87.5 - Hyperkalemia Status: Acute Assessment and Plan: Potassium 6.6 on presentation * S/p calcium gluconate, insulin dextrose, Kayexalate in the ED with improvement in potassium * Potassium significantly improved with improvement in renal function * 3.9 today * Continue to monitor BMP (4) Lethargy: Code(s): R53.83 - Other fatigue Status: Acute Assessment and Plan: Markedly improved. Patient extremely fatigued, weak, not himself per family * Likely due to uremia * Will begin PT/OT eval as as patient is more alert now * Head CT with no acute findings * TSH, B12, folate within normal limits (5) Mycobacterial infection, non-TB: Code(s): A31.9 - Mycobacterial infection, unspecified Status: Acute Assessment and Plan: Being followed as an outpatient by pulmonology * Patient is maintaining adequate oxygen saturations on room air * CXR demonstrates no acute changes * Lower lung lobes reviewed on CT of the abdomen/pelvis, consistent with prior imaging. No need for intervention at this time * Continue with outpatient follow-up (6) Tobacco abuse: Code(s): Z72.0 - Tobacco use Status: Acute Assessment and Plan: Patient smokes 2 packs per day. 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 He is feeling better. He is much more alert. He is a poor historian and is A&Ox2. He denies abdominal pain, flank pain, back pain. No N/V/F/C. No chest pain or palpitations. Review of Systems Review of Systems: All systems reviewed & are unremarkable except as noted in HPI and below Exam Narrative: General: Thin, frail 81-year-old male, sitting up in bed, comfortable, NARD Neuro: Awake, alert and oriented to self and year, answers questions appropriately, spee
--- NOTE | 2022-02-04 16:28 | PM.IMPN ---
Progress Note: A&P Assessment and Plan (1) KAT (acute kidney injury): Code(s): N17.9 - Acute kidney failure, unspecified Status: Acute Assessment and Plan: Creatinine 7.1 with BUN 127 on presentation. Review of prior labs demonstrates baseline creatinine to be 0.8-0.9. Renal ultrasound showed bilateral hydronephrosis with moderate severity on the left and [id number] on the right which can be seen in the setting of bladder outlet obstruction with obliteration of bladder wall and diffuse mild bladder wall thickening. CT of the abdomen/pelvis obtained today which demonstrates moderate bilateral hydronephrosis and soft tissue edema obscuring the ureters Significant improvement in renal function following ureteral stent placement. Continue Quiroz catheter, tamsulosin, finasteride Creatinine improved to 2.5 today Continue IV fluids Appreciate urology and nephrology consultation (2) Bilateral hydronephrosis: Code(s): N13.30 - Unspecified hydronephrosis Status: Acute Assessment and Plan: See plan above. S/p cystoscopy with bilateral ureteral stent placement (3) Acute hyperkalemia: Code(s): E87.5 - Hyperkalemia Status: Acute Assessment and Plan: Potassium 6.6 on presentation S/p calcium gluconate, insulin dextrose, Kayexalate in the ED with improvement in potassium Potassium significantly improved with improvement in renal function 3.9 today Continue to monitor BMP (4) Lethargy: Code(s): R53.83 - Other fatigue Status: Acute Assessment and Plan: Markedly improved. Patient extremely fatigued, weak, not himself per family Likely due to uremia Will begin PT/OT eval as as patient is more alert now Head CT with no acute findings TSH, B12, folate within normal limits (5) Mycobacterial infection, non-TB: Code(s): A31.9 - Mycobacterial infection, unspecified Status: Acute Assessment and Plan: Being followed as an outpatient by pulmonology Patient is maintaining adequate oxygen saturations on room air CXR demonstrates no acute changes Lower lung lobes reviewed on CT of the abdomen/pelvis, consistent with prior imaging. No need for intervention at this time Continue with outpatient follow-up (6) Tobacco abuse: Code(s): Z72.0 - Tobacco use Status: Acute Assessment and Plan: Patient smokes 2 packs per day. 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 He is feeling better. He is much more alert. He is a poor historian and is A&Ox2. He denies abdominal pain, flank pain, back pain. No N/V/F/C. No chest pain or palpitations. Review of Systems Review of Systems: All systems reviewed & are unremarkable except as noted in HPI and below Exam Narrative: General: Thin, frail 81-year-old male, sitting up in bed, comfortable, NARD Neuro: Awake, alert and oriented to self and year, answers questions appropriately, speech clear, no focal neuro deficits noted HEENMT: normocephalic, atraumatic, sclerae anicteric, EOMI, dry mucous membranes Respiratory: clear to auscultation bilaterally, nonlabored breathing Cardio: regular rate, regular rhythm with S1-S2 Abdomen: nondistended, normoactive bowel sounds, soft, nontender to palpation : Quiroz catheter patent and draining reddish tinged urine Extremities: no edema or erythema, DP pulses 2+ bilaterally Skin: no rashes or lesions,
[2022-02-04] MEDS: MIRTAZAPINE 30 MG TABLET PO (20:20)
[2022-02-04] MEDS: DONEPEZIL HCL 10 MG TABLET PO (20:20)
--- NOTE | 2022-02-05 00:59 | PC.NURSE ---
This patient, Edin Nguyen, was transferred to room [facility] on 02/05/22 at 0000. Personal belongings sent with patient. Report given to Ysabel. Appropriate documentation sent with patient.
[2022-02-05 04:00] VITALS: PULSE 70; O2SAT 97
--- NOTE | 2022-02-05 05:25 | PC.NURSE ---
pt transferred from IMU this shift, pt slept all night no c/o pain or distress. hematuria continued. Qiuroz patent and draining bloody dark urine.
[2022-02-05 06:30] LABS: Hematocrit 34.1 % (42.0-52.0); Hemoglobin 11.5 g/dL (14.0-18.0); Mean Corpuscular HGB Conc 33.7 g/dl (32-36); Mean Corpuscular Volume 91.9 fl (80-100); Mean Platelet Volume 9.9 fl (7.4-10.4); Platelet Count Result 176 k/mm3 (150-375); Red Blood Count 3.71 M/mm3 (4.6-6.20); Red Cell Distribution Width 13.3 % (11.5-14.5); White Blood Count 9.8 K/mm3 (4.5-10.0)
[2022-02-05 06:38] LABS: Albumin Level 2.9 g/dL (3.5-5.1); Anion Gap 13 mmol/L (8-16); Blood Urea Nitrogen 26 mg/dL (9-20); Calcium 7.9 mg/dL (8.4-10.2); Carbon Dioxide 24 mmol/L (22-30); Chloride 115 mmol/L (98-107); Estimated CRCL calculation 31 ml/min; Estimated Glomerular Filt Rate > 60; Glucose 104 mg/dL (65-110); Phosphorus 2.3 mg/dL (2.5-4.5); Potassium 2.6 mmol/L (3.4-5.0); Sodium 152 mmol/L (137-145)
[2022-02-05] MEDS: SODIUM CHLORIDE 0.9% IV 1,000 ML 75 ML IV CONT (06:40)
[2022-02-05] MEDS: LEVOTHYROXINE SODIUM 50 MCG TABLET PO (06:55)
--- NOTE | 2022-02-05 06:55 | PC.NURSE ---
reported 2.6 K to Md Ramirez new orders 40 meq po KCL & and 40 meq IV KCL recheck bmp x2 hours after KCL infusion
[2022-02-05 08:00] VITALS: BP 150/72; PULSE 69; PULSE 87; RESP 20; TEMP 36.9; O2SAT 97
[2022-02-05] MEDS: TAMSULOSIN HCL 0.4 MG CAPSULE PO (08:23)
[2022-02-05] MEDS: POTASSIUM CHLORIDE INJ 40 MEQ in SODIUM CHLORIDE 0.9% IV 500 ML 130 MEQ IVPB (08:23)
[2022-02-05] MEDS: GABAPENTIN 300 MG CAPSULE PO ×3 (08:23→16:25)
[2022-02-05] MEDS: NICOTINE (*PBKC) 21 MG PATCH 1 PATCH TRANSDERM (08:23)
[2022-02-05] MEDS: OPTI-GEN TAB 2 TABLET PO ×2 (08:23→16:25)
[2022-02-05] MEDS: ASPIRIN 325 MG TABLET PO (08:23)
[2022-02-05] MEDS: methADONE HCL (*CRX) 10 MG TABLET PO ×2 (08:23→20:11)
[2022-02-05] MEDS: FINASTERIDE 5 MG TABLET PO (08:23)
[2022-02-05] MEDS: POTASSIUM CHLORIDE 20 MEQ PACKET (FOR LIQUID) 40 MEQ PO (08:23)
[2022-02-05] MEDS: SENNOSIDES 8.6 MG TABLET 17.2 MG PO ×2 (08:23→20:11)
[2022-02-05 09:13] LABS: Magnesium 1.7 mg/dL (1.6-2.3)
[2022-02-05 10:00] LABS: Prostate Specific Antigen 0.9 ng/mL (< OR = 4.0)
[2022-02-05] MEDS: DEXTROSE 5% 1,000 ML 1,000 ML 100 ML IV CONT ×3 (10:18→22:10)
--- NOTE | 2022-02-05 11:17 | PM.PNNEP ---
Progress Note: A&P Assessment and Plan (1) KAT (acute kidney injury): Code(s): N17.9 - Acute kidney failure, unspecified Status: Acute Assessment and Plan: The patient has acute kidney injury. His creatinine was normal in August. Renal u/s bilateral hydro U 'lyes nonprerenal UA bland CK 41 contreras placed but not much happened. saw again (thank you!) and took to surgery and placed stents. now good U.O. and all numbers better. creatinine is now down to 1.0. Sodium level anastasia to 152. Discussed with Concepcion. He is now getting D5W and we are encouraging p.o. fluids. (2) Acute hyperkalemia: Code(s): E87.5 - Hyperkalemia Status: Acute Assessment and Plan: resolved Now potassium is low. He is getting a potassium run. 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 Troponin was normal. (5) Pure hypercholesterolemia, unspecified: Code(s): E78.00 - Pure hypercholesterolemia, unspecified Status: Acute Assessment and Plan: On no meds for this. (6) Paroxysmal atrial fibrillation: Code(s): I48.0 - Paroxysmal atrial fibrillation Status: Chronic Assessment and Plan: Heart rate is doing okay (7) Essential hypertension: Code(s): I10 - Essential (primary) hypertension Status: Acute Assessment and Plan: systolic ranging from 120-150 in the last 24 hours (8) Hypothyroid: Qualifiers: Hypothyroidism type: unspecified Qualified Code(s): E03.9 - Hypothyroidism, unspecified Code(s): E03.9 - Hypothyroidism, unspecified Status: Chronic Assessment and Plan: TSH is normal (9) COPD (chronic obstructive pulmonary disease): Code(s): J44.9 - Chronic obstructive pulmonary disease, unspecified Status: Chronic Assessment and Plan: he continues to smoke. Subjective Date/time seen: 02/05/22 11:17 Interval history: Patient is awake and alert and talkative. He feels much better. His is in the room. Discussed the case. Exam Narrative: WDWN in NAD mucus membranes still dry skin no rash head ncat lungs clear bilaterally cor irreg irreg rhythm, rate controlled, no rub abd BS+ nontender and soft ext no edema. Objective Data Vital Signs Vital Signs: Vital Signs - 24 hr 02/04/22 12:00 02/04/22 12:00 02/04/22 12:42 Temperature 36.9 C Pulse Rate 105 H 133 H Respiratory Rate 20 Blood Pressure 116/59 L Pulse Oximetry 92 Oxygen Delivery Room Air 02/04/22 14:00 02/04/22 16:00 02/04/22 16:00 Temperature Pulse Rate 88 103 H Respiratory Rate Blood Pressure Pulse Oximetry Oxygen Delivery Room Air 02/04/22 16:30 02/04/22 18:00 02/04/22 20:00 Temperature 36.9 C Pulse Rate 112 H 86 83 Respiratory Rate 20 Blood Pressure 119/64 Pulse Oximetry 92 Oxygen Delivery 02/04/22 20:00 02/04/22 22:00 02/04/22 23:22 Temperature 37.2 C Pulse Rate 128 H 94 Respiratory Rate 18 Blood Pressure 122/52 L Pulse Oximetry 92 93 Oxygen Delivery Room Air 02/05/22 04:00 02/05/22 04:00 02/05/22 08:50 Temperature Pulse Rate 70 Respiratory Rate Blood Pressure Pulse Oximetry 97 Oxygen Delivery Room Air 02/05/22 08:00 02/05/22 08:00 Temperature 36.
[2022-02-05 12:00] VITALS: PULSE 71
--- NOTE | 2022-02-05 15:20 | P.PNIM_ITS ---
Progress Note: A&P Assessment and Plan (1) KAT (acute kidney injury): Code(s): N17.9 - Acute kidney failure, unspecified Status: Acute Assessment and Plan: Creatinine 7.1 with BUN 127 on presentation. Review of prior labs demonstrates baseline creatinine to be 0.8-0.9. * Renal ultrasound showed bilateral hydronephrosis with moderate severity on the left and [id number] on the right which can be seen in the setting of bladder outlet obstruction with obliteration of bladder wall and diffuse mild bladder wall thickening. * CT of the abdomen/pelvis obtained today which demonstrates moderate bilateral hydronephrosis and soft tissue edema obscuring the ureters * Underwent cystoscopy with bilateral ureteral stent placement on 02/03/22. Tolerated procedure well. * Significant improvement in renal function following ureteral stent placement. Continue Quiroz catheter, tamsulosin, finasteride * Creatinine improved to 1.0 today * Appreciate urology and nephrology consultation (2) Bilateral hydronephrosis: Code(s): N13.30 - Unspecified hydronephrosis Status: Acute Assessment and Plan: See plan above. S/p cystoscopy with bilateral ureteral stent placement (3) Acute hyperkalemia: Code(s): E87.5 - Hyperkalemia Status: Acute Assessment and Plan: Potassium 6.6 on presentation * S/p calcium gluconate, insulin dextrose, Kayexalate in the ED with improvement in potassium * Potassium significantly improved with improvement in renal function * Now pt is hypokalemic with potassium 2.6 * Recieved 80 mEq PO KCl. Recheck potassium this afternoon to ensure remaining stable * Continue to monitor BMP (4) Hypernatremia: Code(s): E87.0 - Hyperosmolality and hypernatremia Status: Acute Assessment and Plan: Sodium elevated at 152 today * sodium chloride discontinued * started on D5W per nephrology recommendations * encourage PO fluid intake * recheck sodium this afternoon to ensure appropriate rate of correction (5) Lethargy: Code(s): R53.83 - Other fatigue Status: Acute Assessment and Plan: Markedly improved. Patient extremely fatigued, weak, not himself per family * Likely due to uremia. Significant improvement following stent placement * Appreciate PT/OT evals * Head CT with no acute findings * TSH, B12, folate within normal limits (6) Mycobacterial infection, non-TB: Code(s): A31.9 - Mycobacterial infection, unspecified Status: Acute Assessment and Plan: Being followed as an outpatient by pulmonology * Patient is maintaining adequate oxygen saturations on room air * CXR demonstrates no acute changes * Lower lung lobes reviewed on CT of the abdomen/pelvis, consistent with prior imaging. No need for intervention at this time * Continue with outpatient follow-up (7) Tobacco abuse: Code(s): Z72.0 - Tobacco use Status: Acute Assessment and Plan: Patient smokes 2 packs per day. 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
--- NOTE | 2022-02-05 15:20 | PM.IMPN ---
Progress Note: A&P Assessment and Plan (1) KAT (acute kidney injury): Code(s): N17.9 - Acute kidney failure, unspecified Status: Acute Assessment and Plan: Creatinine 7.1 with BUN 127 on presentation. Review of prior labs demonstrates baseline creatinine to be 0.8-0.9. Renal ultrasound showed bilateral hydronephrosis with moderate severity on the left and [id number] on the right which can be seen in the setting of bladder outlet obstruction with obliteration of bladder wall and diffuse mild bladder wall thickening. CT of the abdomen/pelvis obtained today which demonstrates moderate bilateral hydronephrosis and soft tissue edema obscuring the ureters Underwent cystoscopy with bilateral ureteral stent placement on 02/03/22. Tolerated procedure well. Significant improvement in renal function following ureteral stent placement. Continue Quiroz catheter, tamsulosin, finasteride Creatinine improved to 1.0 today Appreciate urology and nephrology consultation (2) Bilateral hydronephrosis: Code(s): N13.30 - Unspecified hydronephrosis Status: Acute Assessment and Plan: See plan above. S/p cystoscopy with bilateral ureteral stent placement (3) Acute hyperkalemia: Code(s): E87.5 - Hyperkalemia Status: Acute Assessment and Plan: Potassium 6.6 on presentation S/p calcium gluconate, insulin dextrose, Kayexalate in the ED with improvement in potassium Potassium significantly improved with improvement in renal function Now pt is hypokalemic with potassium 2.6 Recieved 80 mEq PO KCl. Recheck potassium this afternoon to ensure remaining stable Continue to monitor BMP (4) Hypernatremia: Code(s): E87.0 - Hyperosmolality and hypernatremia Status: Acute Assessment and Plan: Sodium elevated at 152 today sodium chloride discontinued started on D5W per nephrology recommendations encourage PO fluid intake recheck sodium this afternoon to ensure appropriate rate of correction (5) Lethargy: Code(s): R53.83 - Other fatigue Status: Acute Assessment and Plan: Markedly improved. Patient extremely fatigued, weak, not himself per family Likely due to uremia. Significant improvement following stent placement Appreciate PT/OT evals Head CT with no acute findings TSH, B12, folate within normal limits (6) Mycobacterial infection, non-TB: Code(s): A31.9 - Mycobacterial infection, unspecified Status: Acute Assessment and Plan: Being followed as an outpatient by pulmonology Patient is maintaining adequate oxygen saturations on room air CXR demonstrates no acute changes Lower lung lobes reviewed on CT of the abdomen/pelvis, consistent with prior imaging. No need for intervention at this time Continue with outpatient follow-up (7) Tobacco abuse: Code(s): Z72.0 - Tobacco use Status: Acute Assessment and Plan: Patient smokes 2 packs per day. 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 the patient is a fair historian secondary to his dementia. His is present at the bedside today. The patient states that he is feeling very well. He has no complaints. He is tolerating his diet. He complains of chronic back pain. He denies flank pain or suprapubic discomfort. He and his are very eager for discharge home. Review of Systems Review of Systems: A
--- NOTE | 2022-02-05 15:57 | WPDUROPN2 ---
Progress Note: A&P Assessment and Plan (1) Bilateral hydronephrosis: Code(s): N13.30 - Unspecified hydronephrosis Status: Acute Assessment and Plan: Follow up with Dr. Becerra on 03/04/22 at 8:30am. Get a CT Urogram prior to office visit to re-assess ureteral edema to determine when stent removal is appropriate. No further follow up needed at this time, ok to discharge home after voiding trial when patient is stable. (2) BPH (benign prostatic hyperplasia): Code(s): N40.0 - Benign prostatic hyperplasia without lower urinary tract symptoms Status: Acute (3) Retention of urine: Code(s): R33.9 - Retention of urine, unspecified Status: Acute Assessment and Plan: Please remove contreras and do a voiding trial prior to discharge. If he fails his voiding trial he should have another contreras placed to f/u in 2 weeks in the office for a second voiding trial. Continue Finasteride and Flomax. (4) Bladder obstruction: Code(s): N32.0 - Bladder-neck obstruction Status: Acute (5) KAT (acute kidney injury): Code(s): N17.9 - Acute kidney failure, unspecified Status: Acute Assessment and Plan: Resolved, creatinine at 1.00. Subjective Subjective Date/Time Seen: 02/05/22 15:57 S/P Cystoscopy, bilateral stents and retrograde pyelograms. Patient doing very well, up in the chair today. Creatinine at baseline 1.00. WBC 9.8, afebrile. Post Op day: 2 Review of Systems Cardiovascular: Cardiovascular: Denies chest pain Respiratory: Respiratory: Reports no additional respiratory complaints Gastrointestinal: Gastrointestinal: Denies abdominal pain, Denies nausea and Denies vomiting Genitourinary: Genitourinary: Denies hematuria, Denies dysuria, Denies flank pain, Denies urinary frequency and Denies urinary urgency Exam Const: General: cooperative Resp: Effort & Inspection: normal respiratory effort Cardio: Rate: regular rate GI: GI Palp: Yes Soft to palpation and No Tenderness to palpation present (GI) : General: Yes no CVA tenderness Urinary Catheter: Urinary Catheter: patent and draining and urine clear Extrem: Right lower extremity: no edema Left lower extremity: no edema Objective Data Vital Signs Vital Signs: Vital Signs - 24 hr 02/04/22 16:00 02/04/22 16:00 02/04/22 16:30 Temperature 98.5 F Pulse Rate 103 H 112 H Respiratory Rate 20 Blood Pressure 119/64 Pulse Oximetry 92 Oxygen Delivery Room Air 02/04/22 18:00 02/04/22 20:00 02/04/22 20:00 Temperature Pulse Rate 86 83 Respiratory Rate Blood Pressure Pulse Oximetry 92 Oxygen Delivery Room Air 02/04/22 22:00 02/04/22 23:22 02/05/22 04:00 Temperature 98.9 F Pulse Rate 128 H 94 Respiratory Rate 18 Blood Pressure 122/52 L Pulse Oximetry 93 97 Oxygen Delivery 02/05/22 04:00 02/05/22 08:50 02/05/22 08:00 Temperature 98.4 F Pulse Rate 70 87 Respiratory Rate 20 Blood Pressure 150/72 H Pulse Oximetry 97 Oxygen Delivery Room Air 02/05/22 08:00 02/05/22 12:00 02/05/22 12:00 Temperature Pulse Rate 69 71 Respiratory Rate Blood Pressure Pulse Oximetry Oxygen Delivery Room Air Intake/Output Intake/Output: Intake & Output 02/02/22 02/03/22 02/04/22 02/05/22 23:59 23:59 23:59 23:59 Intake Total 1000 1650 1740 1800 Output Total 1255 4000 950 Balance 1000 395 -2260 850 Meds/Results Medications: Active Medications Generic Name Dose Route Start Last Admin Trade Name Freq PRN Reason Stop Dose Admin Acetaminophen 650 mg 02/02/22 19:11 Acetaminophen 325 Mg Tablet PO Q4H PRN Pain 1-3 Alprazolam 0.5 mg 02/02/22 19:10 02/04/22 00:00 Alprazolam (*Crx) 0.5 Mg Tablet PO 0.5 mg TID PRN Administration Anxiety Aspirin 325 mg 02/03/22 09:00 02/05/22 08:23 Aspirin 325 Mg Tablet PO 325 mg DAILY KENZIE Administration Dextrose 12.5 gm 02/03/22 08:1
[2022-02-05 16:00] VITALS: BP 128/66; PULSE 78; PULSE 88; RESP 20; TEMP 36.6; O2SAT 94
[2022-02-05 16:11] LABS: Anion Gap 13 mmol/L (8-16); Blood Urea Nitrogen 23 mg/dL (9-20); Calcium 7.9 mg/dL (8.4-10.2); Carbon Dioxide 23 mmol/L (22-30); Chloride 113 mmol/L (98-107); Estimated CRCL calculation 34 ml/min; Estimated Glomerular Filt Rate > 60; Glucose 175 mg/dL (65-110); Potassium 3.6 mmol/L (3.4-5.0); Sodium 149 mmol/L (137-145)
[2022-02-05 20:00] VITALS: PULSE 78; PULSE 81; RESP 20; O2SAT 92
[2022-02-05] MEDS: MIRTAZAPINE 30 MG TABLET PO (20:11)
[2022-02-05] MEDS: DONEPEZIL HCL 10 MG TABLET PO (20:11)
[2022-02-05 20:32] VITALS: BP 158/69; PULSE 81; RESP 20; TEMP 36.7; O2SAT 92
[2022-02-06] VITALS: PULSE 83
[2022-02-06 04:00] VITALS: PULSE 77
[2022-02-06 06:00] VITALS: BP 139/70; PULSE 81; RESP 20; TEMP 36.6; O2SAT 99
[2022-02-06 06:22] LABS: Hematocrit 33.9 % (42.0-52.0); Hemoglobin 11.3 g/dL (14.0-18.0); Mean Corpuscular HGB Conc 33.3 g/dl (32-36); Mean Corpuscular Hemoglobin 30.4 pg (26-34); Mean Corpuscular Volume 91.1 fl (80-100); Mean Platelet Volume 9.8 fl (7.4-10.4); Platelet Count Result 164 k/mm3 (150-375); Red Blood Count 3.72 M/mm3 (4.6-6.20); Red Cell Distribution Width 13.3 % (11.5-14.5); White Blood Count 11.3 K/mm3 (4.5-10.0)
[2022-02-06 06:33] LABS: Albumin Level 2.7 g/dL (3.5-5.1); Anion Gap 7 mmol/L (8-16); Blood Urea Nitrogen 18 mg/dL (9-20); Calcium 7.8 mg/dL (8.4-10.2); Carbon Dioxide 22 mmol/L (22-30); Chloride 111 mmol/L (98-107); Estimated CRCL calculation 26 ml/min; Estimated Glomerular Filt Rate 58; Glucose 118 mg/dL (65-110); Phosphorus 1.3 mg/dL (2.5-4.5); Potassium 3.1 mmol/L (3.4-5.0); Sodium 140 mmol/L (137-145)
[2022-02-06 08:00] VITALS: PULSE 110
[2022-02-06] MEDS: methADONE HCL (*CRX) 10 MG TABLET PO (08:32)
[2022-02-06] MEDS: SENNOSIDES 8.6 MG TABLET 17.2 MG PO (08:32)
[2022-02-06] MEDS: GABAPENTIN 300 MG CAPSULE PO ×2 (08:32→13:35)
[2022-02-06] MEDS: OPTI-GEN TAB 2 TABLET PO (08:32)
[2022-02-06] MEDS: TAMSULOSIN HCL 0.4 MG CAPSULE PO (08:32)
[2022-02-06] MEDS: LEVOTHYROXINE SODIUM 50 MCG TABLET PO (08:32)
[2022-02-06] MEDS: NICOTINE (*PBKC) 21 MG PATCH 1 PATCH TRANSDERM (08:32)
[2022-02-06] MEDS: POTASSIUM CHLORIDE 20 MEQ TABLET 40 MEQ PO (08:32)
[2022-02-06] MEDS: ASPIRIN 325 MG TABLET PO (08:32)
[2022-02-06] MEDS: FINASTERIDE 5 MG TABLET PO (08:32)
--- NOTE | 2022-02-06 10:46 | PM.PNNEP ---
Progress Note: A&P Assessment and Plan (1) KAT (acute kidney injury): Code(s): N17.9 - Acute kidney failure, unspecified Status: Acute Assessment and Plan: The patient has acute kidney injury. this was caused by bilateral ureteral obstruction. creatinine is now down to 1.0. Sodium level is back to normal. (2) Acute hyperkalemia: Code(s): E87.5 - Hyperkalemia Status: Acute Assessment and Plan: resolved potassium was low yesterday and is still low but better today. (3) Dementia: Qualifiers: Dementia type: unspecified type Dementia behavioral disturbance: without behavioral disturbance Qualified Code(s): F03.90 - Unspecified dementia without behavioral disturbance Code(s): F03.90 - Unspecified dementia, unspecified severity, without behavioral disturbance, psychotic disturbance, mood disturbance, and anxiety Status: Chronic Assessment and Plan: He is back to baseline (4) Atherosclerotic heart disease of [place] coronary artery without angina pectoris: Code(s): I25.10 - Atherosclerotic heart disease of [place] coronary artery without angina pectoris Status: Acute Assessment and Plan: No chest pain. Troponin was normal. (5) Pure hypercholesterolemia, unspecified: Code(s): E78.00 - Pure hypercholesterolemia, unspecified Status: Acute Assessment and Plan: On no meds for this. (6) Paroxysmal atrial fibrillation: Code(s): I48.0 - Paroxysmal atrial fibrillation Status: Chronic Assessment and Plan: Heart rate is doing okay (7) Essential hypertension: Code(s): I10 - Essential (primary) hypertension Status: Acute Assessment and Plan: systolic ranging from 120-150 in the last 24 hours (8) Hypothyroid: Qualifiers: Hypothyroidism type: unspecified Qualified Code(s): E03.9 - Hypothyroidism, unspecified Code(s): E03.9 - Hypothyroidism, unspecified Status: Chronic Assessment and Plan: TSH is normal (9) COPD (chronic obstructive pulmonary disease): Code(s): J44.9 - Chronic obstructive pulmonary disease, unspecified Status: Chronic Assessment and Plan: he continues to smoke. Subjective Date/time seen: 02/06/22 10:46 Interval history: Patient is awake and alert and talkative. He feels much better. His is in the room. they are hoping for discharge today. Exam Narrative: WDWN in NAD mucus membranes still dry skin no rashor subcu nodules head ncat lungs clear bilaterally cor irreg irreg rhythm, rate controlled, no rub abd BS+ nontender and soft ext no edema. Objective Data Vital Signs Vital Signs: Vital Signs - 24 hr 02/05/22 12:00 02/05/22 12:00 02/05/22 16:00 Temperature Pulse Rate 71 88 Respiratory Rate Blood Pressure Pulse Oximetry Oxygen Delivery Room Air 02/05/22 16:00 02/05/22 20:32 02/05/22 20:00 Temperature 36.6 C 36.7 C Pulse Rate 78 81 81 Respiratory Rate 20 20 20 Blood Pressure 128/66 158/69 H Pulse Oximetry 94 92 92 Oxygen Delivery Room Air 02/05/22 20:00 02/06/22 00:00 02/06/22 04:00 Temperature Pulse Rate 78 83 77 Respiratory Rate Blood Pressure Pulse Oximetry Oxygen Delivery 02/06/22 06:00 02/06/22 09:15 Temperature 36.6 C Pulse Rate 81 Respiratory Rate 20 Blood Pressure 139/70 Pulse Oximetry 99 Oxygen Delivery Room Air Intake/Output Intake/Output: Intake & Output 02/03/22 02/04/22 02/05/22 02/06/22 23:59 23:59 23:59 23:59 Intake Total 1650 1740 5080 100 Output Total 1255 4000 1750 500 Balance 395 -2260 3330 -400 Meds/Results Medications: Active Medications Generic Name Dose Route Start Last Admin Trade Name Freq PRN Reason Stop Dose Admin Acetaminophen 650 mg 02/02/22 19:11 Acetaminophen 325 Mg Tablet PO Q4H PRN Pain 1-3 Alprazolam 0.5 mg 10
--- NOTE | 2022-02-06 11:15 | PC.NURSE ---
pt was assisted to bathroom by edi programmer analyst, pt was able to urinate but unable to measure the amount due to urinating in toilet while pt was trying to have a bm.
[2022-02-06 12:00] VITALS: PULSE 125
--- NOTE | 2022-02-06 12:26 | PM.DS ---
DS: Admitting Diagnosis Discharge Date 02/06/2022 Admitting Diagnosis Acute kidney injury DS: Discharge Diagnosis Discharge Diagnosis (1) KAT (acute kidney injury): Code(s): N17.9 - Acute kidney failure, unspecified Status: Acute Assessment and Plan: Creatinine 7.1 with BUN 127 on presentation. Review of prior labs demonstrates baseline creatinine to be 0.8-0.9. Renal ultrasound showed bilateral hydronephrosis with moderate severity on the left and [id number] on the right which can be seen in the setting of bladder outlet obstruction with obliteration of bladder wall and diffuse mild bladder wall thickening. CT of the abdomen/pelvis showed moderate bilateral hydronephrosis and soft tissue edema obscuring the ureters He was seen in consultation by nephrology and urology Underwent cystoscopy with bilateral ureteral stent placement on 02/03/22. Tolerated procedure well. Significant improvement in renal function following ureteral stent placement. Creatinine returned to baseline (2) Bilateral hydronephrosis: Code(s): N13.30 - Unspecified hydronephrosis Status: Acute Assessment and Plan: See above. S/p cystoscopy with bilateral ureteral stent placement. Quiroz catheter placed on admission. Removed prior to discharge inpatient able to void independently. Continue tamsulosin and finasteride. (3) Acute hyperkalemia: Code(s): E87.5 - Hyperkalemia Status: Acute Assessment and Plan: Potassium 6.6 on presentation. Potassium resolved following treatment with calcium gluconate, insulin and dextrose, Kayexalate. [place] to be secondary to acute kidney injury. Following potassium lowering therapy, potassium was slightly decreased required supplementation. Discharge home was 10 mEq p.o. KCl daily x7 days with repeat BMP in 1 week (4) Hypernatremia: Code(s): E87.0 - Hyperosmolality and hypernatremia Status: Acute Assessment and Plan: Likely secondary to IV fluid rehydration. Fluids transitioned to D5W and sodium improved at appropriate rate. Fluids discontinued and patient was tolerating p.o. fluid intake. Sodium 140 at time of discharge. (5) Lethargy: Code(s): R53.83 - Other fatigue Status: Acute Assessment and Plan: Markedly improved. Patient extremely fatigued, weak, not himself per family on presentation. Likely due to uremia. Patient had significant improvement in mental status following stent placement. Head CT showed no acute findings. TSH, B12, folate within normal limits. Patient participated in PT/OT during admission (6) Mycobacterial infection, non-TB: Code(s): A31.9 - Mycobacterial infection, unspecified Status: Acute Assessment and Plan: Being followed as an outpatient by pulmonology. CXR showed no acute changes. Lower lung lobes visualized on CT of the abdomen/pelvis which also appeared consistent with prior imaging. Patient maintain adequate O2 sats on room air. Continue with previously scheduled outpatient follow-up. (7) Tobacco abuse: Code(s): Z72.0 - Tobacco use Status: Acute Assessment and Plan: Patient smokes 2 packs per day. Smoking cessation education was provided, however patient does not intend to quit smoking. 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
--- NOTE | 2022-02-06 13:15 | PCPTNOTE ---
Attempted physical therapy evaluation, but patient has discharge note in and is being discharged.
== END 2022-02-06 14:10 | disposition home or self-care (01) | DRG 660 ==
LOC: ANHED 11:56 → ANH2MED 14:43 → ANH3MED 15:17 → ANHIMU 02-03 09:15 → ANH3MEDSUR 02-05 05:26
PROVIDERS: Internal Medicine; Internal Medicine Nephrology; Nurse Practitioner Adult Health; Urology; Admitting Provider Family Medicine; Emergency Provider Emergency Medicine; PCP Family Medicine Adolescent Medicine; Visit Provider Physician Assistant
PROC: 0T788DZ Dilation of Bilateral Ureters with Intraluminal Device, Via Natural or Artificial Opening Endoscopic (ICD-10-PCS; CPT 52352; principal; 2022-02-03 15:00)
DX: N17.9 Acute kidney failure, unspecified (principal); A31.9 Mycobacterial infection, unspecified; E46 Unspecified protein-calorie malnutrition; E87.0 Hyperosmolality and hypernatremia; Z68.1 Body mass index [BMI] 19.9 or less, adult; J44.9 Chronic obstructive pulmonary disease, unspecified; Z20.822 Contact with and (suspected) exposure to COVID-19; N32.0 Bladder-neck obstruction; N13.30 Unspecified hydronephrosis; N40.1 Benign prostatic hyperplasia with lower urinary tract symptoms; R33.9 Retention of urine, unspecified; N13.39 Other hydronephrosis; E87.5 Hyperkalemia; R29.700 NIHSS score 0; I25.10 Atherosclerotic heart disease of native coronary artery without angina pectoris; F17.210 Nicotine dependence, cigarettes, uncomplicated; E03.9 Hypothyroidism, unspecified; I48.0 Paroxysmal atrial fibrillation; F03.90 Unspecified dementia, unspecified severity, without behavioral disturbance, psychotic disturbance, mood disturbance, and anxiety; M19.90 Unspecified osteoarthritis, unspecified site; F41.8 Other specified anxiety disorders; M85.80 Other specified disorders of bone density and structure, unspecified site; Z90.49 Acquired absence of other specified parts of digestive tract
CPT/HCPCS: 36415; 70450; 71045; 74018; 74176; 74420; 76775; 80048; 80053; 80069; 80307; 81001; 82550; 82570; 82607; 82746; 82948; 83605; 83735; 84153; 84156; 84300; 84443; 84484; 84540; 85025; 85027; 85610; 85730; 87040; 93005; 94640; 97165; 99285; A9270; C1758; C1769; C2617; C9803; J0171; J0610; J0690; J1815; J2370; J2704; J3010; J3480; J7030; J7040; J7070; Q9966; U0003; U0005

== ENCOUNTER 2022-02-11 06:21 | Inpatient (IN) | payer MEDICARE, SELFPAY ==
[2022-02-11] VITALS (26 sets, daily range): BP systolic 127–171; BP diastolic 57–103; PULSE 56–78; RESP 12–26; TEMP 36.4–37.1; O2SAT 87–100
--- NOTE | ~2022-02-11 | CT_ITS ---
EXAMINATION: CT abdomen pelvis wo con DATE: 02/11/2022 08:07 INDICATION: Left flank pain. TECHNIQUE: Computed tomography (CT) of the abdomen and pelvis was performed without intravenous contr ast. Automated exposure control and iterative reconstruction technique were employed. The dose-length product was 180.29 mGy-cm. COMPARISON: 02/03/2022 FINDINGS: Emphysema. Small bilateral pleural effusions with adjacent dependent atelectasis in the right lower l obe. Improvement in a region of consolidation in the dependent left lower lobe which could represent atelectasis or pneumonia. Heart size is normal. Atherosclerotic coronary artery calcifications. No pe ricardial effusion. Couple hepatic cysts the larger measuring 2.5 cm at the dome of the liver. Mild i ntra and extrahepatic biliary ductal dilation likely related to prior cholecystectomy with surgical c lips at the gallbladder fossa. Tiny splenic calcific lesions consistent with old granulomatous diseas e. Pancreas and bilateral adrenal glands are normal. Mild bilateral hydronephrosis with bilateral int ernal ureteral stents in expected positions with the loops formed proximally in the renal pelvises an d with distal loop formed in the bladder. Wall thickening the bladder which could be due to cystitis or chronic outlet obstruction which slightly exaggerated by decompressed state. Suture line along the tip of the cecum consistent with prior appendectomy. No bowel obstruction. There is wall thickening in the sigmoid colon and rectum consistent with colitis which could be infectious, inflammatory or is chemic in etiology. Small amount of ascites as well as extensive diffuse body wall, mesenteric and re troperitoneal edema. There is calcified atherosclerosis of the aorta and many of the other arteries. Moderate lumbar dextroscoliosis with severe spondylosis and approximately 1 cm left lateral listhesis of L1 with respect to L2 and L4 with respect to L3. Moderate bilateral hip osteoarthritis. IMPRESSION: 1. Wall thickening at the sigmoid colon and rectum consistent with colitis which could be infectious, inflammatory or ischemic in etiology. 2. Persistent moderate bilateral hydronephrosis with bilateral internal ureteral stents in expected p ositions. 3. Wall thickening of the bladder which could be due to cystitis or chronic outlet obstruction likely accentuated by incomplete distention. 4. Anasarca with small bilateral pleural effusions, small amount of ascites and diffuse soft tissue e juan. 5. Decreasing consolidation in the left lower lobe which could represent improving atelectasis or pne umonia. 6. Emphysema. Reviewed, dictated and finalized at location A. IMPRESSION: 1. Wall thickening at the sigmoid colon and rectum consistent with colitis whic h could be infectious, inflammatory or ischemic in etiology. 2. Persistent moderate bilateral hydronephrosis with bilateral internal uretera l stents in expected positions. 3. Wall thickening of the bladder which could be due to cystitis or chronic out let obstruction likely accentuated by incomplete distention. 4. Anasarca with small bilateral pleural effusions, small amount of ascites and diffuse soft tissue edema. 5. Decreasing consolidation in the left lower lobe which could represent improv ing atelectasis or pneumonia. 6. Emphysema.
[2022-02-11 06:56] LABS: Basophils Percent Auto 0.3 % (0.2-1.2); Eosinophils Absolute Auto 0.3 K/mm3 (0-0.3); Eosinophils Percent Auto 2.1 % (0-4.4); Hematocrit 40.6 % (42.0-52.0); Hemoglobin 13.4 g/dL (14.0-18.0); Immature Granulocyte Absolute 0.09 K/mm3 (0.00-0.031); Immature Granulocyte Percent A 0.7 % (0-0.5); Lymphocytes Absolute Auto 1.89 K/mm3 (0.9-3.2); Lymphocytes Percent Auto 14.6 % (18.3-44.2); Mean Corpuscular Hemoglobin 30.8 pg (26-34); Mean Corpuscular Volume 93.3 fl (80-100); Mean Platelet Volume 9.6 fl (7.4-10.4); Monocytes Absolute Auto 1.2 K/mm3 (0.1-0.6); Neutrophils Absolute Auto 9.5 K/mm3 (1.3-6.7); Neutrophils Percent Auto 73.3 % (45.5-73.1); Platelet Count Result 321 k/mm3 (150-375); Red Blood Count 4.35 M/mm3 (4.6-6.20); Red Cell Distribution Width 13.6 % (11.5-14.5)
[2022-02-11 07:18] LABS: Alanine Aminotransferase 19 U/L (6-50); Albumin Level 3.7 g/dL (3.5-5.1); Alkaline Phosphatase 78 U/L (38-126); Anion Gap 12 mmol/L (8-16); Aspartate Amino Transferase 60 U/L (17-59); Bilirubin,Total 0.6 mg/dL (0.2-1.3); Blood Urea Nitrogen 25 mg/dL (9-20); Calcium 8.6 mg/dL (8.4-10.2); Carbon Dioxide 24 mmol/L (22-30); Chloride 106 mmol/L (98-107); Estimated CRCL calculation 28 ml/min; Estimated Glomerular Filt Rate 58; Glucose 103 mg/dL (65-110); Potassium 4.5 mmol/L (3.4-5.0); Sodium 142 mmol/L (137-145)
--- NOTE | 2022-02-11 07:38 | ED.GENADULT ---
HPI - General Adult General Chief complaint: Unspecified Stated complaint: left flank pain Time Seen by Provider: 02/11/22 07:38 Source: patient and family Mode of arrival: ambulatory Limitations: no limitations History of Present Illness HPI narrative: 81 years old white female presents with left flank pain started last night got worse this morning, he denies any fever, chills, nausea, vomiting. Patient is a status post bilateral kidney stents few days ago by Dr. Becerra. Related Data Home Medications Medication Instructions Recorded Confirmed vit C 250 mg-vit E 90 mg-zinc 40 2 tablet PO BID 04/29/19 02/02/22 mg-copper 1 [id number] capsule (PreserVision AREDS-2) aspirin 325 mg tablet 325 mg PO DAILY 08/27/21 02/02/22 levothyroxine 50 mcg tablet 50 mcg PO DAILY 11/27/21 02/02/22 acetaminophen 500 mg tablet 1,000 mg PO HS 02/02/22 02/02/22 Allergies Allergy/AdvReac Type Severity Reaction Status Date / Time Antihistamines - Alkylamine Allergy Unknown Verified 02/11/22 06:34 Review of Systems Review of Systems: All systems reviewed & are unremarkable except as noted in HPI and below PMFSH Past Medical History Medical History Acute appendicitis with generalized peritonitis, without gangrene or abscess Arthritis Depression with anxiety Essential hypertension Hypothyroid Mycobacterial infection, 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 Uses walker for ambulation. Previously on hospice, revoked in Feb 2021. His PCP is Dr. Valdez. His , Deyanira, is his surrogate decision maker. He is a full code. Smoking packs per day: 2 Smoking cigarettes per day: 40.0 Years smoked: 62 Smoking pack-years: 124.00 Smoking status: Current every day smoker Alcohol intake: never Substance use: never Substance use type: does not use Has the Lack of Transportation Kept You From Medical Appointments or From Getting Medications?: No Within the Past 12 Months, Were You Worried Whether Your Food Would Run Out Before You Got Money to Buy More?: Never True What is Your Housing Situation Today?: I Have Housing Are You Worried That in the Next 2 Months, You May Not Have Your Own Housing to Live In?: No Do You Have Trouble Paying Your Heating Or Electricity Bill?: No Do You Have Trouble Paying For Medicines?: No Are You Currently Unemployed and Looking for Work?: No Highest Level of Education Completed: High School Diploma/GED Do You Have Trouble With Childcare or the Care of a Family Member?: No Spiritual care concerns: No Exam Narrative: General appearance: Well-developed, well-nourished Skin: Normal color Head: Normocephalic, nontraumatic Eyes: Clear conjunctiva ENT: Oropharynx normal, ears normal, nose normal Neck: Supple, nontender Chest and respiratory: Airway patent, no respiratory distress, no accessory muscle use Heart: Regular rate/rhythm
[2022-02-11] MEDS: HYDROmorphone HCL INJ (*CRX) 1 MG/ML SYR 0.5 MG IV PUSH (07:57)
[2022-02-11] MEDS: ONDANSETRON INJ 4 MG/2 ML VIAL IV PUSH (07:57)
--- NOTE | 2022-02-11 08:01 | PC.NURSE ---
Pt to CT.
--- NOTE | 2022-02-11 09:46 | PC.NURSE ---
Pt unable to provide urine sample. Attempted straight cath without success. Bladder scan shows 93mls urine. Hold further cath for urine per Dr. Tena.
[2022-02-11] MEDS: MORPHINE SULFATE (*CRX) 4 MG/ML INJ IV PUSH ×2 (09:56→14:14)
[2022-02-11] MEDS: metroNIDAZOLE 500 MG/ISO 100ML 500 MG/100 ML BAG 100 MG IVPB ×3 (09:56→20:35)
[2022-02-11 10:12] LABS: Lactic Acid Reflex 1.3 mmol/L (0.7-2.0)
[2022-02-11] MEDS: SODIUM CHLORIDE 0.9% IV 1,000 ML 125 ML IV CONT (12:37)
[2022-02-11 12:39] LABS: Add Urine Microscopic? YES; Appearance Urine Cloudy (Clear); Bilirubin Urine Negative (Negative); Blood Urine 3+ (Negative); Color Urine Yellow (Yellow); Glucose Urine UA Negative (Negative); Ketones Urine Trace mg/dL (Negative); Leukocyte Esterase Ur 2+ LEU/UL (Negative); Mucus Urine Rare /lpf; Nitrate Urine Negative (Negative); Protein Urine Negative (Negative); RBC Urine >75 /hpf (0-2); Specific Grav Ur 1.014 (1.001-1.035); Squamous Epithelial Cell Urine Rare /hpf (Few); Urobilinogen Urine Negative mg/dL (<2.0); WBC Urine 16-20 /hpf
--- NOTE | 2022-02-11 14:55 | PM.IMHP ---
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 The patient is a poor historian given his dementia. His is at the bedside and she provides most of the history. She states that since he was discharged on 02/06, he had been doing well at home. He was getting around well and ambulating with his walker. He was urinating without difficulty. He still had decreased appetite but was drinking protein shakes and eating something each day. She said this morning when he woke up and was having coffee, he complained of not feeling well. He informed her that last night he started having pain in his left back. He did not mention it to her last night but she said it must of been pretty bad since he mentioned at this morning and did not disagree when she said he should go to the ER. She states his last bowel movement was 2-3 days ago. She has not noticed anything else that is out of the ordinary. Upon presentation to the ED, his blood pressure was elevated, he was mildly tachypneic, additional vital signs were stable, white blood cell count 13, additional laboratory workup unremarkable, and CT of the abdomen/pelvis showed wall thickening at the sigmoid colon and rectum consistent with colitis which could be infectious, inflammatory, or ischemic, as well as persistent moderate bilateral hydronephrosis with bilateral internal ureteral stents in expected position and wall thickening of the bladder which could be due to cystitis or chronic outlet obstruction. Upon my evaluation, the patient states he is feeling improved. He states his pain is much improved compared to earlier today. He denies dysuria. He is not able to provide any additional history. He is being admitted to the hospitalist service for observation. Supervising physician for this history and physical is Dr. Selena Spencer. 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
--- NOTE | 2022-02-11 16:10 | WPDURCON ---
Assessment and Plan Assessment and plan (1) BPH (benign prostatic hyperplasia): Code(s): N40.0 - Benign prostatic hyperplasia without lower urinary tract symptoms Status: Acute Assessment and Plan: Continue Flomax and Finasteride. Bladder Scan to ensure emptying. Bladder scan in ER today was 92cc, an attempt to straight cath for a urine sample was done but unable to pass d/t BPH. (2) Bilateral hydronephrosis: Code(s): N13.30 - Unspecified hydronephrosis Status: Acute Assessment and Plan: Stents are in place and creatinine remains stable, no surgical intervention needed. Plan to follow up as noted in Feb. with Dr. Becerra and have a CT Urogram prior to visit. We will then decide when the stents will be removed. (3) Left flank pain: Code(s): R10.9 - Unspecified abdominal pain Status: Acute Assessment and Plan: Likely related to colitis as stents are placed bilaterally and he would have bilateral flank pain if stents were intolerable. No pyelonephritis noted on CT, cultures are pending at this time. He remains on antibiotics at this time. Tailor antibiotics to culture results/sensitivities. (4) Retention of urine: Code(s): R33.9 - Retention of urine, unspecified Status: Acute Assessment and Plan: Patient is emptying his bladder, if he returns in retention, call urology for cath placement if unable to place contreras. (5) Bladder obstruction: Code(s): N32.0 - Bladder-neck obstruction Status: Acute Urology Consult Note HPI Date Seen: 02/11/22 Time Seen: 16:10 Requesting Physician: Selena Spencer MD Primary Care Provider: Je Black MD Consult Narrative Reason for consult: Bilateral Hydronephrosis/UTI Narrative: Edin Nguyen is a 81 year old male who presented to the ER today with acute onset of left flank pain that began last night but worsened this morning. He recently had a Cystoscopy with bilateral stent placement, bilateral retrograde pyelogram on 02/03/[address] at that time showed bilateral hydronephrosis without obstruction and no obstruction was noted upon his pyelogram either. His creatinine upon admission at that time was 7.50, but returned to baseline at 1.20 upon discharge. It remains at 1.20 today and WBC is slightly elevated at 13.0. He is afebrile, has a UA that is suggestive of a UTI, but also has a stent in place. He is tachypneic. CT repeat today shows bladder and sigmoid colon wall thickening with persistent bilateral moderate hydronephrosis with bilateral stents in place. He was also given Finasteride and Tamsulosin to treat underlying BPH. He had a voiding trial prior to discharge and remains urinating well. His said his stream is slow and he doesn't go often, but he doesn't drink fluids as he should either. Review of Systems Cardiovascular: Cardiovascular: Denies chest pain Respiratory: Respiratory: Reports no additional respiratory complaints Gastrointestinal: Gastrointestinal: Denies abdominal pain, Denies nausea and Denies vomiting Genitourinary: Genitourinary: Denies hematuria, Denies dysuria, Reports flank pain, Denies urinary frequency, Denies urinary hesitancy, Denies urinary incontinence and Denies urinary urgency [facility] Past Medical History Medical History Acute appendicitis with generalized peritonitis, without gangrene or abscess Arthritis Bilateral hydronephrosis Causing outlet obstruction and KAT 01/2022, s/p bilateral ureteral stents BPH (benign prostatic hyperplasia) Depression with anxiety Essential hypertension Hypothyroid Mycobacterial infection, 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
[2022-02-11] MEDS: OPTI-GEN TAB 2 TABLET PO (17:49)
[2022-02-11] MEDS: GABAPENTIN 300 MG CAPSULE PO (17:49)
[2022-02-11] MEDS: NICOTINE (*PBKC) 21 MG PATCH 1 PATCH TRANSDERM (17:50)
[2022-02-11] MEDS: methADONE HCL (*CRX) 10 MG TABLET PO (17:50)
[2022-02-11] MEDS: MIRTAZAPINE 30 MG TABLET PO (20:35)
[2022-02-11] MEDS: SENNOSIDES 8.6 MG TABLET 17.2 MG PO (20:35)
[2022-02-11] MEDS: DONEPEZIL HCL 10 MG TABLET PO (20:35)
[2022-02-12] MEDS: SODIUM CHLORIDE 0.9% IV 1,000 ML 75 ML IV CONT ×2 (01:10→14:35)
[2022-02-12] MEDS: methADONE HCL (*CRX) 10 MG TABLET PO ×2 (03:32→14:35)
[2022-02-12 05:11] VITALS: BP 153/67; PULSE 68; RESP 18; TEMP 36.7; O2SAT 96
[2022-02-12] MEDS: metroNIDAZOLE 500 MG/ISO 100ML 500 MG/100 ML BAG 100 MG IVPB ×4 (05:16→20:48)
[2022-02-12 07:18] LABS: Hematocrit 37.2 % (42.0-52.0); Hemoglobin 12.1 g/dL (14.0-18.0); Mean Corpuscular HGB Conc 32.5 g/dl (32-36); Mean Corpuscular Hemoglobin 31.3 pg (26-34); Mean Corpuscular Volume 96.1 fl (80-100); Mean Platelet Volume 9.5 fl (7.4-10.4); Platelet Count Result 289 k/mm3 (150-375); Red Blood Count 3.87 M/mm3 (4.6-6.20); Red Cell Distribution Width 13.6 % (11.5-14.5); White Blood Count 10.9 K/mm3 (4.5-10.0)
[2022-02-12 07:30] LABS: Anion Gap 10 mmol/L (8-16); Blood Urea Nitrogen 24 mg/dL (9-20); Carbon Dioxide 17 mmol/L (22-30); Chloride 114 mmol/L (98-107); Estimated CRCL calculation 30 ml/min; Estimated Glomerular Filt Rate > 60; Glucose 97 mg/dL (65-110); Potassium 3.6 mmol/L (3.4-5.0); Sodium 141 mmol/L (137-145)
[2022-02-12] MEDS: OPTI-GEN TAB 2 TABLET PO ×2 (08:08→16:29)
[2022-02-12 08:09] VITALS: PULSE 70
[2022-02-12] MEDS: FINASTERIDE 5 MG TABLET PO (08:09)
[2022-02-12] MEDS: NICOTINE (*PBKC) 21 MG PATCH 1 PATCH TRANSDERM (08:09)
[2022-02-12] MEDS: TAMSULOSIN HCL 0.4 MG CAPSULE PO (08:09)
[2022-02-12] MEDS: GABAPENTIN 300 MG CAPSULE PO ×3 (08:09→16:29)
[2022-02-12] MEDS: ASPIRIN 325 MG TABLET PO (08:09)
[2022-02-12] MEDS: LEVOTHYROXINE SODIUM 50 MCG TABLET PO (08:09)
[2022-02-12] MEDS: METOPROLOL TARTRATE 25 MG TABLET PO (08:09)
[2022-02-12] MEDS: ENOXAPARIN 30 MG/0.3 ML SYRINGE SUB-Q (08:10)
[2022-02-12] MEDS: SENNOSIDES 8.6 MG TABLET 17.2 MG PO ×2 (08:11→20:49)
[2022-02-12 13:14] VITALS: BMI 15.2
[2022-02-12 15:25] VITALS: BP 140/62; PULSE 73; RESP 16; TEMP 37.2; O2SAT 94
--- NOTE | 2022-02-12 16:29 | PM.IMPN ---
Progress Note: A&P Assessment and Plan (1) Colitis: Code(s): K52.9 - Noninfective gastroenteritis and colitis, unspecified Status: Acute Assessment and Plan: CT of the abdomen/pelvis shows wall thickening at the sigmoid colon and rectum consistent with colitis Most likely infectious etiology Mild leukocytosis at 13 on presentation improved today to 10.9. Patient is afebrile Patient denies diarrhea, last bowel movement 3 days ago Will obtain stool cultures, awaiting specimen for collection Continue IV Levaquin and Flagyl Will discontinue IV fluids as patient is tolerating PO intake Ischemic colitis unlikely. Lactic acid within normal limits. Supportive care. Analgesics and antiemetics as needed (2) Left flank pain: Code(s): R10.9 - Unspecified abdominal pain Status: Acute Assessment and Plan: Presented with left flank pain which has now resolved. May be secondary to hydronephrosis vs possible UTI vs less likely colitis. Appreciate Urology consult. Analgesics as needed (3) Abnormal urinalysis: Code(s): R82.90 - Unspecified abnormal findings in urine Status: Acute Assessment and Plan: UA abnormal with 2+ leuk est and 16-20 WBC. May be due to ureteral stent. Patient denies dysuria. He is on Levaquin for treatment of colitis which will be continued. Will await results of urine culture (4) Bilateral hydronephrosis: Code(s): N13.30 - Unspecified hydronephrosis Status: Acute Assessment and Plan: CT of the abdomen/pelvis shows persistent moderate bilateral hydronephrosis and bilateral ureteral stents are in expected position. Renal function remaining stable. Appreciate urology evaluation recommendation. Monitor urine output. Outpatient urology follow up is scheduled. (5) BPH (benign prostatic hyperplasia): Code(s): N40.0 - Benign prostatic hyperplasia without lower urinary tract symptoms Status: Acute Assessment and Plan: Continue tamsulosin and finasteride. (6) Tobacco abuse: Code(s): Z72.0 - Tobacco use Status: Acute Assessment and Plan: Patient smokes 1-2 packs per day. Received prolonged smoking cessation education as last hospitalization, patient states he has no interest in quitting smoking. Nicotine patch will be provided during admission (7) Essential hypertension: Code(s): I10 - Essential (primary) hypertension Status: Acute Assessment and Plan: Blood pressure stable. Last BP 140/62 Continue home metoprolol. 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 He is feeling very well today. He is a poor historian due to his dementia. He denies any pain and has no concerns. His is present at the bedside who reports that he seems significantly improved today. He has been more alert and interacting with her more. She notes that he still has not been eating monitor, however this is quite typical for him. She has no additional concerns at this time Review of Systems Review of Systems: All systems reviewed & are unremarkable except as noted in HPI and below Exam Narrative: General: Cachectic 81-year-old male, supine in bed, comfortable, NARD Neuro: awake, alert and oriented to self only, speech clear, no focal neuro deficits noted HEENMT: normocephalic,
[2022-02-12] MEDS: polyethylene glycoL 3350 17 GM POWD.PACK PO (16:55)
[2022-02-12] MEDS: BISACODYL 10 MG SUPPOSITORY RECTAL (16:55)
[2022-02-12] MEDS: MIRTAZAPINE 30 MG TABLET PO (20:49)
[2022-02-12] MEDS: DONEPEZIL HCL 10 MG TABLET PO (20:49)
[2022-02-12 21:38] VITALS: BP 123/51; PULSE 70; RESP 16; TEMP 36.6; O2SAT 92
[2022-02-13 00:46] LABS: SARS-CoV-2 RNA PCR Negative
[2022-02-13] MEDS: metroNIDAZOLE 500 MG/ISO 100ML 500 MG/100 ML BAG 100 MG IVPB ×2 (04:41→09:34)
[2022-02-13] MEDS: methADONE HCL (*CRX) 10 MG TABLET PO (04:44)
[2022-02-13 05:33] VITALS: BP 151/65; PULSE 70; RESP 12; TEMP 36.8; O2SAT 93
[2022-02-13 06:53] LABS: Hematocrit 35.2 % (42.0-52.0); Hemoglobin 11.5 g/dL (14.0-18.0); Mean Corpuscular HGB Conc 32.7 g/dl (32-36); Mean Corpuscular Hemoglobin 30.5 pg (26-34); Mean Corpuscular Volume 93.4 fl (80-100); Mean Platelet Volume 9.7 fl (7.4-10.4); Platelet Count Result 307 k/mm3 (150-375); Red Blood Count 3.77 M/mm3 (4.6-6.20); Red Cell Distribution Width 13.5 % (11.5-14.5); White Blood Count 10.9 K/mm3 (4.5-10.0)
[2022-02-13 07:05] LABS: Anion Gap 6 mmol/L (8-16); Blood Urea Nitrogen 24 mg/dL (9-20); Calcium 7.9 mg/dL (8.4-10.2); Carbon Dioxide 22 mmol/L (22-30); Chloride 113 mmol/L (98-107); Estimated CRCL calculation 28 ml/min; Estimated Glomerular Filt Rate 58; Glucose 103 mg/dL (65-110); Potassium 3.4 mmol/L (3.4-5.0); Sodium 141 mmol/L (137-145)
[2022-02-13] MEDS: polyethylene glycoL 3350 17 GM POWD.PACK PO (09:28)
[2022-02-13] MEDS: NICOTINE (*PBKC) 21 MG PATCH 1 PATCH TRANSDERM (09:28)
[2022-02-13] MEDS: SENNOSIDES 8.6 MG TABLET 17.2 MG PO (09:32)
[2022-02-13] MEDS: ALPRAZolam (*CRX) 0.5 MG TABLET PO (09:32)
[2022-02-13] MEDS: METOPROLOL TARTRATE 25 MG TABLET PO (09:32)
[2022-02-13] MEDS: OPTI-GEN TAB 2 TABLET PO (09:32)
[2022-02-13] MEDS: LEVOTHYROXINE SODIUM 50 MCG TABLET PO (09:32)
[2022-02-13] MEDS: TAMSULOSIN HCL 0.4 MG CAPSULE PO (09:32)
[2022-02-13] MEDS: GABAPENTIN 300 MG CAPSULE PO (09:33)
[2022-02-13] MEDS: FINASTERIDE 5 MG TABLET PO (09:33)
[2022-02-13] MEDS: ENOXAPARIN 30 MG/0.3 ML SYRINGE SUB-Q (09:33)
[2022-02-13] MEDS: ASPIRIN 325 MG TABLET PO (09:33)
--- NOTE | 2022-02-13 09:58 | PM.DS ---
DS: Admitting Diagnosis Discharge Date 02/13/22 Admitting Diagnosis Colitis DS: Discharge Diagnosis Discharge Diagnosis (1) Colitis: Code(s): K52.9 - Noninfective gastroenteritis and colitis, unspecified Status: Acute Assessment and Plan: Presented with left flank/lower quadrant pain. CT of the abdomen/pelvis showed wall thickening at the sigmoid colon and rectum consistent with colitis. Most likely infectious etiology. Mild leukocytosis at 13 on presentation. Received IV Levaquin and Flagyl. Supportive care provided and patient was rehydrated with IV fluids. Ischemic colitis felt to be unlikely and lactic acid was within normal limits. Stool cultures ordered but were not obtained. Leukocytosis improved. Patient able to tolerate oral intake and had symptomatic improvement. Will continue p.o. Levaquin (renally dosed) and Flagyl for total of 7 days antibiotic therapy (2) Left flank pain: Code(s): R10.9 - Unspecified abdominal pain Status: Acute Assessment and Plan: Presented with left flank pain. May be secondary to hydronephrosis vs less likely colitis. He was seen in consultation by Urology. He had no acute issues and pain resolved. No need for acute urologic intervention. He will continue with outpatient follow-up (3) Abnormal urinalysis: Code(s): R82.90 - Unspecified abnormal findings in urine Status: Acute Assessment and Plan: UA abnormal with 2+ leuk est and 16-20 WBC. Most likely due to ureteral stent. Patient denied dysuria and urine culture was negative (4) Bilateral hydronephrosis: Code(s): N13.30 - Unspecified hydronephrosis Status: Acute Assessment and Plan: CT of the abdomen/pelvis shows persistent moderate bilateral hydronephrosis and bilateral ureteral stents are in expected position. Renal function remained stable. Patient seen consultation by Urology. Urine output was adequate. He will continue previously scheduled outpatient follow-up (5) BPH (benign prostatic hyperplasia): Code(s): N40.0 - Benign prostatic hyperplasia without lower urinary tract symptoms Status: Acute Assessment and Plan: Continue tamsulosin and finasteride. (6) Tobacco abuse: Code(s): Z72.0 - Tobacco use Status: Acute Assessment and Plan: Patient smokes 1-2 packs per day. Patient states he has no interest in quitting smoking. Nicotine patch provided during admission (7) Essential hypertension: Code(s): I10 - Essential (primary) hypertension Status: Acute Assessment and Plan: Blood pressures stable during admisison. Continue home metoprolol. 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, chronic arthritis, ruptured appendicitis with peritonitis s/p appendectomy in August 2021, previously on hospice for 2 years for COPD and malnutrition revoked in February 2021, and recent hospital admission from 02/02-02/06/22 for KAT secondary to bilateral hydronephrosis s/p ureteral stents who presented to the emergency department on 02/11 with complaints of left flank/back pain.?Upon presentation to the ED, his blood pressure was elevated, he was mildly tachypneic, additional vital signs were stable, white blood cell count 13, additional laboratory workup unremarkable, and CT of the abdomen/pelvis showed wall thickening at the sigmoid colon and rectum consistent with colitis which could be infectious, inflammatory, or ischemic, as well as persistent moderate bilateral hydronephrosis with bilateral internal ureteral stents in expected position and wall thickening of the bladder which could be due to cystitis or chronic out
== END 2022-02-13 12:01 | disposition home or self-care (01) | DRG 392 ==
LOC: ANHED 09:59 → ANH3MEDSUR 11:11
PROVIDERS: Emergency Medicine; Physician Assistant; Admitting Provider Family Medicine; Emergency Provider Emergency Medicine; PCP Family Medicine Adolescent Medicine; Visit Provider Family Medicine
DX: A09 Infectious gastroenteritis and colitis, unspecified (principal); N13.30 Unspecified hydronephrosis; R82.90 Unspecified abnormal findings in urine; Z96.0 Presence of urogenital implants; F03.90 Unspecified dementia, unspecified severity, without behavioral disturbance, psychotic disturbance, mood disturbance, and anxiety; N40.0 Benign prostatic hyperplasia without lower urinary tract symptoms; N32.0 Bladder-neck obstruction; I10 Essential (primary) hypertension; F17.210 Nicotine dependence, cigarettes, uncomplicated; F41.8 Other specified anxiety disorders; E03.9 Hypothyroidism, unspecified; I48.0 Paroxysmal atrial fibrillation; J44.9 Chronic obstructive pulmonary disease, unspecified; M19.09 Primary osteoarthritis, other specified site; Z20.822 Contact with and (suspected) exposure to COVID-19; Z28.21 Immunization not carried out because of patient refusal; Z79.82 Long term (current) use of aspirin; Z79.899 Other long term (current) drug therapy; Z86.19 Personal history of other infectious and parasitic diseases
CPT/HCPCS: 36415; 74176; 80048; 80053; 81001; 82040; 83605; 85025; 85027; 87086; 96361; 96365; 96366; 96372; 96375; 96376; 99285; A9270; G0378; G0379; J1170; J1650; J1956; J2270; J2405; J7030; U0003; U0005

== ENCOUNTER 2022-03-03 06:35 | Outpatient (CLI) | payer MEDICARE, SELFPAY ==
--- NOTE | ~2022-03-03 | CT_ITS ---
EXAMINATION: CT abdomen pelvis wo/w con DATE: 03/03/2022 07:30 INDICATION: Hydronephrosis TECHNIQUE: Computed tomography (CT) of the abdomen and pelvis was performed without and subsequently with 130 CC Omnipaque 350 intravenous contrast. Automated exposure control and iterative reconstructi on technique were employed. Exam dose: 403.41 mGy-cm total exam DLP. COMPARISON: 02/11/[address] abdomen pelvis 08/27/2021 CT abdomen pelvis with IV contrast material FINDINGS: Prominent emphysematous changes in the lower lung zones. There is persistent atelectasis an d/or consolidation in the posterior basilar left lower lobe. Minimal dependent left pleural effusion, diminished since 02/11/2022. Mild right pleural effusion, mildly increased since 02/11/2022. Heart size is within normal limits. No pericardial effusion. There is increased bile duct distention since 08/2021, the common bile duct measuring approximately 8 .8 mm in the pancreatic head on 08/27/2021, increased to 10.6 mm on 02/21/2022. Recommend correlation w ith serum bilirubin. Consider MRCP as clinically appropriate. Status post cholecystectomy. Scattered hepatic cysts are again noted. Normal splenic size. No pancreatic mass lesion or calcification is evident. The adrenal glands are unremarkable. Prominent bilateral hydronephrosis and pelviectasis bilateral internal urinary stents. There is promi nent diffuse thickening of the urinary bladder wall. The prominent bilateral hydronephrosis, bladder wall thickening and internal urinary stents are all new since 08/27/2021 but present on recent 022 CT examination. There is extensive calcification of the abdominal aorta and origins of celiac and superior mesenteric and renal arteries as well as prominent iliac and femoral artery calcifications. No abdominal aortic aneurysm. No intraperitoneal or retroperitoneal or pelvic mass lesion or adenopathy is noted. There is thickening of the wall of rectum is a prominent amount of fecal material in the colon. No in traperitoneal free air. Dextro scoliosis and prominent degenerative disc disease of the lumbar spine IMPRESSION: Persistent prominent bilateral hydronephrosis and bladder wall thickening Bilateral internal urinary stents are again noted Increased bile duct dilatation since 08/27/2021; recommend correlation with serum bilirubin level. Con bottler MRCP as clinically appropriate Hepatic cysts Thickening of the rectal wall Reviewed, dictated and finalized at [facility]. Reviewed, dictated and finalized at [facility]. D WRAPPER IMPRESSION: Persistent prominent bilateral hydronephrosis and bladder wall thic kening Bilateral internal urinary stents are again noted Increased bile duct dilatation since 08/27/2021; recommend correlation with seru m bilirubin level. Consider MRCP as clinically appropriate Hepatic cysts Thickening of the rectal wall
== END 2022-03-03 06:36 | disposition home or self-care (01) ==
PROVIDERS: PCP Family Medicine Adolescent Medicine; Visit Provider Nurse Practitioner Adult Health
DX: N13.30 Unspecified hydronephrosis (principal); K76.89 Other specified diseases of liver
CPT/HCPCS: 74178; Q9967

== ENCOUNTER 2022-03-04 08:52 | Inpatient (IN) | payer MEDICARE, SELFPAY ==
[2022-03-04] VITALS (31 sets, daily range): BP systolic 91–137; BP diastolic 54–76; PULSE 53–64; RESP 8–20; TEMP 36.4–37.1; O2SAT 90–100; BMI 17.4
--- NOTE | ~2022-03-04 | XR_ITS ---
EXAMINATION: XR chest 2V Exam Date/Time: 03/07/2022 9:30 PERMASTONE INSTALLER HISTORY: SOB Comparison: 03/04/2022. RESULT: Lines, tubes, and devices: None. Lungs and pleura: Increasing scattered linear peripheral reticular opacities. New mild bilateral cos tophrenic angle blunting. Linear atelectasis in the left lower lung. Subsegmental opacity in the right lower lung, new. Increas ed fissure fluid. Unchanged biapical opacities/masses. Emphysematous and senescent change. Cardiomediastinal silhouette: Stable. Other: No acute osseous or upper abdominal finding. IMPRESSION: Interstitial pulmonary edema. Subsegmental atelectasis/consolidation in the right lower lung. Small b ilateral effusions. Reviewed, dictated and finalized at location [facility]. ASTONE INSTALLER IMPRESSION: Interstitial pulmonary edema. Subsegmental atelectasis/consolidation in the rig ht lower lung. Small bilateral effusions.
--- NOTE | ~2022-03-04 | US_ITS ---
EXAMINATION: US renal BI DATE: 03/04/2022 23:19 INDICATION: Acute kidney injury. TECHNIQUE: Multiple ultrasound grayscale images of the kidneys were obtained. COMPARISON: CT abdomen and pelvis 03/03/2022 FINDINGS: The right kidney measures 12.2 x 5.6 x 7.3 cm. The left kidney measures 12.2 x 6.4 x 7.2 cm. The kidn eys demonstrate increased parenchymal echogenicity, consistent with nephropathy. There is moderate bi lateral hydronephrosis. The bladder demonstrates a thickened wall. A Quiroz catheter is noted. IMPRESSION: 1. Stable moderate bilateral hydronephrosis. 2. Bladder wall thickening again seen which may be secondary to cystitis or chronic outlet obstructio n. Reviewed, dictated and finalized at location [facility]. STANT ART DIRECTOR IMPRESSION: 1. Stable moderate bilateral hydronephrosis. 2. Bladder wall thickening again seen which may be secondary to cystitis or chr onic outlet obstruction.
--- NOTE | ~2022-03-04 | XR_ITS ---
XR chest 2V DATE: 03/04/2022 09:24 INDICATION: Weakness TECHNIQUE: AP and lateral views COMPARISON: 02/02/2022 portable upright AP chest 12/30/2021 CT chest FINDINGS: Prominent bilateral apical fibrocalcific scarring is again demonstrated. There is persistent patchy infiltrate or atelectasis in the left lower lobe. Emphysematous changes are noted. Relatively prominent pulmonary arteries may indicate pulmonary hyper tension. Heart size is within normal limits. Aortic calcification. No pleural effusion, pulmonary vascular congestion or pneumothorax. IMPRESSION: Persistent left lower lobe infiltrate and/atelectasis Chronic bilateral apical fibrocalcific scarring Emphysema, possible pulmonary hypertension Reviewed, dictated and finalized at location B. BASE PROGRAMMER
--- NOTE | ~2022-03-04 | CT_ITS ---
EXAMINATION: CT brain wo con DATE: 03/04/2022 10:17 INDICATION: Confusion, weakness TECHNIQUE: Computed tomography (CT) of the head was performed without intravenous contrast. The mA wa s adjusted according to patient size. Iterative reconstruction technique was employed. Exam dose: 60 5.33 mGy-cm total exam DLP. COMPARISON: 02/02/2022 CT brain FINDINGS: There are prominent bilateral carotid siphon internal carotid artery calcifications. There is nonspecific diminished attenuation of the cerebral white matter, likely due to chronic small vessel ischemic changes. No intracranial mass lesion or hemorrhage or cerebrovascular accident is detected. No midline shift o r mass effect effect. Moderate cerebral and cerebellar volume loss. No subdural or epidural hematoma. Orbital contents are unremarkable other than evidence of bilateral ocular lens replacements. The mastoid air cells and paranasal sinuses are normally developed and aerated. No fracture or bone destruction of the cranial vault. IMPRESSION: Cerebral atherosclerosis and chronic small vessel ischemic changes of the cerebral white matter No acute intracranial finding Reviewed, dictated and finalized at [facility]. Reviewed, dictated and finalized at location [facility]. PARTS COUNTER PERSON
--- NOTE | 2022-03-04 09:06 | ECG_ITS ---
Measurements Intervals [place] Rate: 61 P: 85 IN: 156 QRS: 90 QRSD: 101 T: 83 QT: 424 QTc: 430 Interpretive Statements SINUS RHYTHM DELAYED PRECORDIAL R/S TRANSITION BASELINE WANDER- II, III, AVR, AVL, AVF, V6 BORDERLINE ECG COMPARED TO ECG 02/03/2022 08:32:47 NO SIGNIFICANT CHANGES Electronically Signed On 03-04-2022 12:47:25 SEAMSTRESS FITTER by Kamar Zhao D.O.
--- NOTE | 2022-03-04 10:04 | ED.WEAKNESS ---
HPI - Weakness General Chief complaint: Weakness <Julia Trejo PA-C - Last Filed: 03/04/22 14:00> Stated complaint: weakness, confusion <Julia Trejo PA-C - Last Filed: 03/04/22 14:00> Time Seen by Provider: 03/04/22 09:15 <Julia Trejo PA-C - Last Filed: 03/04/22 14:00> Source: patient and family <Julia Trejo PA-C - Last Filed: 03/04/22 14:00> Mode of arrival: EMS <JACQUELINE Andrew Last Filed: 03/04/22 14:00> Limitations: dementia <Julia Trejo PA-C - Last Filed: 03/04/22 14:00> History of Present Illness HPI Narrative: This is a 81 year old male that presents to the ER for generalized weakness. Reportedly woke up this morning feeling okay and as the morning progressed he got to the point that he was barely wanting to get up anymore. Patient does not report any focalizing symptoms currently. His family reports he was recently started on a diuretic for the swelling in his ankles and feet. Denies fever, cough, sore throat, chest pain, abdominal pain, vomiting, or dysuria. <Julia Trejo PA-C - Last Filed: 03/04/22 14:00> Related Data Home medications: Home Medications Medication Instructions Recorded Confirmed vit C 250 mg-vit E 90 mg-zinc 40 2 tablet PO BID 04/29/19 02/17/22 mg-copper 1 [id number] capsule (PreserVision AREDS-2) aspirin 325 mg tablet 325 mg PO DAILY 08/27/21 02/17/22 levothyroxine 50 mcg tablet 50 mcg PO DAILY 11/27/21 02/17/22 acetaminophen 500 mg tablet 1,000 mg PO HS 02/02/22 02/17/22 polyethylene glycol 3350 17 gram 17 g PO DAILY 02/11/22 02/17/22 oral powder packet (Miralax) <JACQUELINE Andrew Last Filed: 03/04/22 14:00> Allergies/Adverse reactions: Allergies Allergy/AdvReac Type Severity Reaction Status Date / Time Antihistamines - Alkylamine Allergy Unknown Verified 03/04/22 14:26 <Julia Trejo PA-C - Last Filed: 03/04/22 14:00> Review of Systems Review of Systems: CONSTITUTIONAL: Denies fever ENT: Denies congestion, sore throat CARDIOVASCULAR: Reports edema. Denies chest pain RESPIRATORY: Denies cough or dyspnea. GASTROINTESTINAL: Denies abdominal pain, nausea, vomiting, or diarrhea. GENITOURINARY: Denies dysuria NEUROLOGIC: Reports generalized weakness. 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
[2022-03-04] MEDS: SODIUM CHLORIDE 0.9% IV 500 ML 999 ML IV CONT ×2 (10:09→12:15)
[2022-03-04 10:11] LABS: Basophils Percent Auto 0.4 % (0.2-1.2); Eosinophils Absolute Auto 0.1 K/mm3 (0-0.3); Eosinophils Percent Auto 0.6 % (0-4.4); Hematocrit 36.8 % (42.0-52.0); Hemoglobin 11.5 g/dL (14.0-18.0); Immature Granulocyte Absolute 0.03 K/mm3 (0.00-0.031); Immature Granulocyte Percent A 0.4 % (0-0.5); Lymphocytes Absolute Auto 1.37 K/mm3 (0.9-3.2); Mean Corpuscular HGB Conc 31.3 g/dl (32-36); Mean Corpuscular Hemoglobin 31.3 pg (26-34); Mean Platelet Volume 9.8 fl (7.4-10.4); Monocytes Absolute Auto 0.7 K/mm3 (0.1-0.6); Monocytes Percent Auto 9.2 % (2.6-8.5); Neutrophils Absolute Auto 5.8 K/mm3 (1.3-6.7); Neutrophils Percent Auto 72.4 % (45.5-73.1); Platelet Count Result 257 k/mm3 (150-375); Red Blood Count 3.68 M/mm3 (4.6-6.20); Red Cell Distribution Width 14.6 % (11.5-14.5); White Blood Count 8.1 K/mm3 (4.5-10.0)
[2022-03-04 10:32] LABS: Alanine Aminotransferase 14 U/L (6-50); Albumin Level 3.3 g/dL (3.5-5.1); Alkaline Phosphatase 78 U/L (38-126); Anion Gap 12 mmol/L (8-16); Aspartate Amino Transferase 44 U/L (17-59); Bilirubin,Total 0.3 mg/dL (0.2-1.3); Blood Urea Nitrogen 47 mg/dL (9-20); Calcium 8.6 mg/dL (8.4-10.2); Carbon Dioxide 25 mmol/L (22-30); Chloride 105 mmol/L (98-107); Estimated CRCL calculation 17 ml/min; Estimated Glomerular Filt Rate 30; Glucose 87 mg/dL (65-110); Potassium 4.4 mmol/L (3.4-5.0); Sodium 142 mmol/L (137-145)
[2022-03-04 10:37] LABS: Alveolar/Arterial O2 Gradient 29.8 mmHg; Base Excess ABG -1.8 mEq/l (+/-2.0); Carboxyhemoglobin 8.6 % THb (0-2.0); Fractional Inspired Oxygen 21 %; HCO3 ABG 24.1 mEq/l (22.0-26.0); Methemoglobin ABG 0.3 %THb (0-1.5); Oxygen Content ABG 13.8 %vol (16.0-22.0); Oxygen Saturation ABG 91.7 % (95.0-100.0); PCO2 ABG 45.5 mmHg (35.0-45.0); PO2 ABG 65.4 mmHg (80.0-100.0); PO2 FiO2 Ratio Arterial Blood 3.11 %; Total Hemoglobin 11.6 g/dL (12.0-18.0); pH ABG 7.342 (7.350-7.450)
[2022-03-04 10:41] LABS: Oxyhemoglobin 84.1 % THb (90.0-100.0)
[2022-03-04 10:42] LABS: Device ROOM AIR; Site Drawn LEFT BRACHIAL
[2022-03-04 11:14] LABS: Add Urine Microscopic? YES; Appearance Urine Cloudy (Clear); Bilirubin Urine 1+ (Negative); Blood Urine 3+ (Negative); Color Urine Red (Yellow); Glucose Urine UA Negative (Negative); Ketones Urine Negative (Negative); Leukocyte Esterase Ur Negative LEU/UL (Negative); Nitrate Urine Negative (Negative); Protein Urine 2+ mg/dL (Negative); Urobilinogen Urine 0.2 mg/dL (<2.0)
[2022-03-04 11:40] LABS: Influenza A QL RT-PCR Negative (Negative); Influenza B QL RT-PCR Negative (Negative); SARS-CoV-2 RNA PCR Negative
[2022-03-04 13:55] LABS: Lactic Acid Reflex 1.4 mmol/L (0.7-2.0)
--- NOTE | 2022-03-04 14:21 | PM.IMHP ---
H&P: HPI History of Present Illness Date/Time: 03/04/22 14:22 Chief Complaint: Weak and confused Narrative: This is an 80-year-old male patient who is very hard of hearing. The patient came to the emergency room with complaints of generalized weakness. The patient appears to be very frail. The patient woke up feeling okay this morning and then progressively got weaker. He denies any focalized symptoms. According to his family the patient recently started a diuretic for the swelling in his ankles and feet. He denies any fever cough chest pain abdominal pain nausea vomiting or diarrhea. His H&H is 11.5 and 36.8 which is his baseline. Arterial blood gases his pH is slightly low at 7.342. His creatinine is 2.10 which was normal last month. His lactic is normal. Patient was positive for benzodiazepines and methadone. The patient was negative for influenza A/B and COVID. The patient was given 2 L of IV fluids and started on azithromycin Rocephin. Chest x-ray was read as the following?Persistent left lower lobe infiltrate and/atelectasis Chronic bilateral apical fibrocalcific scarring Emphysema, possible pulmonary hypertension? CT of the head was read as cerebral atherosclerosis and chronic small-vessel ischemic changes of the cerebral white matter no acute intracranial findings. Abdominal pelvis CT from yesterday was read as the following: Persistent prominent bilateral hydronephrosis and bladder wall thickening Bilateral internal urinary stents are again noted Increased bile duct dilatation since 08/27/2021; recommend correlation with serum bilirubin level. Consider MRCP as clinically appropriate Hepatic cysts Thickening of the rectal wall. His bilirubin was found to be normal. A bladder scan was performed and he had less than 150 cc of urine in his bladder. The patient is being admitted to observation status on the date of service of 03/04/2022. Review of Systems Review of Systems: See HPI All systems reviewed & are unremarkable except as noted in HPI and below Constitutional: Constitutional: Reports as per HPI and Reports no additional constitutional complaints Eyes: Eyes: Reports as per HPI and Reports no additional eye complaints ENT: Reports system reviewed and no additional complaints, except as documented and Reports Normal hearing present Cardiovascular: Cardiovascular: Reports no additional cardiovascular complaints Respiratory: Respiratory: Reports no additional respiratory complaints and Reports no additional respiratory complaints Gastrointestinal: Gastrointestinal: Reports as per HPI and Reports no additional gastrointestinal complaints Musculoskeletal: Musculoskeletal: Reports no additional musculoskeletal complaints Integumentary/Breasts: Skin/Breast: Reports system reviewed and no additional complaints, except as docu and Reports as per HPI Neurologic: Reports system reviewed and no additional complaints, except as documented, Reports as per HPI and Reports Normal hearing present Psychiatric: Psychiatric: Reports no additional psychiatric complaints and Reports as per HPI Endocrine: Endocrine: Reports no additional endocrine complaints Hematologic/Lymphatic: Hematologic/Lymphatic: Reports no additional hematologic/lymphatic complaints Allergic/Immunologic: Allergic/Immunologic: Reports no additional allergic/immunologic complaints ON LICENSE OF [facility] Past Medical History Medical History (Updated 03/04/22 @ 22:30 by Mariza Longoria NP) Acute appendicitis with generalized peritonitis, without gangrene or abscess Acute hyperkalemia KAT (acute kidney injury) Arthritis Bilateral hydronephrosis Causing outlet obstruction and KAT 01/2022, s/p bilateral ureteral stents BPH (benign prostatic hyperplasia) Colitis Depression with anxiety Edema Essential hypertension History of stent insertion of renal artery Hypernatremia Hypothyroid Mycobacterial infection, 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
--- NOTE | 2022-03-04 15:45 | ADMGEN ---
This patient, Edin Nguyen, was admitted to 2 Medical Room 240-01. Patient/family oriented to hospital policies and general routines including ID bracelet, bed and alarms, visiting hours, pain management, procedures, bathroom and other care routines, personal items, smoking policy, room service/diet, and visiting hours. Information on how to activate the Rapid Response Team has been discussed. Patient/Family are encouraged to report perceived risks to care and to ask questions if they do not understand what they are told or what they should do.
[2022-03-04 21:12] LABS: Amphetamine Screen Urine Negative (Negative); Barbiturate Screen Urine Negative (Negative); Benzodiazepines Screen Urine Positive (Negative); Cannabinoid Screen Urine Negative (Negative); Cocaine Screen Urine Negative (Negative); Methadone Screen Urine Positive (Negative); Opiate Screen Urine Negative (Negative); Phencyclidine Screen Urine Negative (Negative)
[2022-03-04] MEDS: ACETAMINOPHEN 500 MG TABLET 1000 MG PO (23:19)
[2022-03-04] MEDS: SENNOSIDES 8.6 MG TABLET 17.2 MG PO (23:19)
[2022-03-04] MEDS: SODIUM CHLORIDE 0.9% IV 1,000 ML 100 ML IV CONT (23:19)
[2022-03-04] MEDS: MIRTAZAPINE 30 MG TABLET PO (23:20)
[2022-03-04] MEDS: methADONE HCL (*CRX) 10 MG TABLET PO (23:20)
[2022-03-04] MEDS: DONEPEZIL HCL 10 MG TABLET PO (23:20)
[2022-03-04] MEDS: GABAPENTIN 300 MG CAPSULE PO (23:20)
[2022-03-04] MEDS: NICOTINE (*PBKC) 21 MG PATCH 1 PATCH TRANSDERM (23:21)
[2022-03-05] VITALS (16 sets, daily range): BP systolic 126–140; BP diastolic 57–64; PULSE 64–91; RESP 16–21; TEMP 36.4–37.2; O2SAT 94–100; BMI 17.4
[2022-03-05] MEDS: IPRATROPIUM BR 0.02% INH SOLN 0.5 MG/2.5 ML VIAL INHALATION ×4 (02:05→20:02)
[2022-03-05] MEDS: ALBUTEROL SULFATE NEB 2.5 MG/3 ML INH INHALATION ×4 (02:05→20:01)
[2022-03-05] MEDS: LEVOTHYROXINE SODIUM 50 MCG TABLET PO (05:36)
[2022-03-05 05:50] LABS: Lactic Acid Reflex 0.6 mmol/L (0.7-2.0)
[2022-03-05 06:25] LABS: Basophils Percent Auto 0.4 % (0.2-1.2); Eosinophils Absolute Auto 0.1 K/mm3 (0-0.3); Eosinophils Percent Auto 1.4 % (0-4.4); Hematocrit 35.1 % (42.0-52.0); Hemoglobin 11.2 g/dL (14.0-18.0); Immature Granulocyte Absolute 0.03 K/mm3 (0.00-0.031); Immature Granulocyte Percent A 0.4 % (0-0.5); Lymphocytes Absolute Auto 1.65 K/mm3 (0.9-3.2); Lymphocytes Percent Auto 21.7 % (18.3-44.2); Mean Corpuscular HGB Conc 31.9 g/dl (32-36); Mean Corpuscular Hemoglobin 30.6 pg (26-34); Mean Corpuscular Volume 95.9 fl (80-100); Mean Platelet Volume 9.8 fl (7.4-10.4); Monocytes Absolute Auto 0.7 K/mm3 (0.1-0.6); Monocytes Percent Auto 9.7 % (2.6-8.5); Neutrophils Percent Auto 66.4 % (45.5-73.1); Platelet Count Result 229 k/mm3 (150-375); Red Blood Count 3.66 M/mm3 (4.6-6.20); Red Cell Distribution Width 14.5 % (11.5-14.5); White Blood Count 7.6 K/mm3 (4.5-10.0)
[2022-03-05 06:49] LABS: Alanine Aminotransferase 13 U/L (6-50); Albumin Level 2.9 g/dL (3.5-5.1); Alkaline Phosphatase 78 U/L (38-126); Anion Gap 7 mmol/L (8-16); Aspartate Amino Transferase 45 U/L (17-59); Bilirubin,Total 0.3 mg/dL (0.2-1.3); Blood Urea Nitrogen 39 mg/dL (9-20); CRP 13.8 mg/dL (<1.0); Calcium 8.3 mg/dL (8.4-10.2); Carbon Dioxide 24 mmol/L (22-30); Chloride 109 mmol/L (98-107); Estimated CRCL calculation 19 ml/min; Estimated Glomerular Filt Rate 34; Glucose 80 mg/dL (65-110); Magnesium 2.4 mg/dL (1.6-2.3); Potassium 4.5 mmol/L (3.4-5.0); Sodium 140 mmol/L (137-145)
[2022-03-05] MEDS: METOPROLOL TARTRATE 25 MG TABLET PO (09:01)
[2022-03-05] MEDS: GABAPENTIN 300 MG CAPSULE PO ×3 (09:01→16:56)
[2022-03-05] MEDS: FINASTERIDE 5 MG TABLET PO (09:01)
[2022-03-05] MEDS: NICOTINE (*PBKC) 21 MG PATCH 1 PATCH TRANSDERM (09:02)
[2022-03-05] MEDS: TAMSULOSIN HCL 0.4 MG CAPSULE PO (09:02)
[2022-03-05] MEDS: SENNOSIDES 8.6 MG TABLET 17.2 MG PO ×2 (09:02→20:46)
[2022-03-05] MEDS: SODIUM CHLORIDE 0.9% IV 1,000 ML 100 ML IV CONT ×2 (09:03→20:38)
[2022-03-05] MEDS: methADONE HCL (*CRX) 10 MG TABLET PO ×2 (09:06→20:40)
[2022-03-05] MEDS: ASPIRIN 325 MG TABLET PO (10:52)
--- NOTE | 2022-03-05 12:52 | PC.NURSE ---
On 03/05/22, the student, [Jailene Darnell], provided care and completed [facility] documentation on this patient. I have reviewed the student's documentation and agree with the findings.
--- NOTE | 2022-03-05 14:06 | PM.IMPN ---
Progress Note: A&P Assessment and Plan (1) Acute respiratory failure with hypoxia: Code(s): J96.01 - Acute respiratory failure with hypoxia Status: Acute Assessment and Plan: -the patient is currently on oxygen at 2 L per nasal cannula. -patient's chest CT that was performed on 12/30/2021 was read as the following?Stable bilateral upper lobe masses, consistent with old granulomatous disease and/or necrotizing pneumonia. Repeat CTs and to follow up with the lung mass (2) Pneumonia: Qualifiers: Laterality: left Lung location: lower lobe of lung Pneumonia type: due to unspecified organism Qualified Code(s): J18.9 - Pneumonia, unspecified organism Code(s): J18.9 - Pneumonia, unspecified organism Status: Acute Assessment and Plan: IV fluid resuscitation Monitor lactic acid levels Repeat CBC CMP Two sets of Blood cultures urine cultures pending C-reactive protein, procalcitonin level. CXR for o Pneumonia Monitor albumin' Monitoring of mental status. Steroids suggested if septic shock on his positive fluid resuscitation and vasopressors. IV antibiotics Rocephin and Zithromax (3) BPH (benign prostatic hyperplasia): Code(s): N40.0 - Benign prostatic hyperplasia without lower urinary tract symptoms Status: Acute Assessment and Plan: Continue finasteride. Continue Flomax. (4) Bilateral hydronephrosis: Code(s): N13.30 - Unspecified hydronephrosis Status: Acute (5) Generalized weakness: Code(s): R53.1 - Weakness Status: Acute Assessment and Plan: -PT and OT evaluation would greatly be appreciated -acute care registered nurse consultation is greatly be appreciated for rehab. Plan Creatinine 1.9 trending downwards And gentle hydration. Avoid nephrotoxic drugs. Monitor antihypertensive drugs Avoid NSAIDs. Routine CMP monitor GFR. Monitor electrolytes potassium levels. Dose antibiotics depending on creatinine clearance Routine follow-up with PCP and obstetrics tech recommended Subjective Date/time seen: 03/05/22 14:06 Interval history: Patient appears comfortable no chest pain or shortness for breath Exam Const: General: comfortable HENMT: Ears: TM's normal bilaterally Eyes: General: appearance normal, both eyes and all related structures Sclera: sclerae normal Neck: Neck: supple and no JVD Resp: Effort & Inspection: normal respiratory effort Auscultation: crackles, wheezes and diminished lung sounds Cardio: Rate: regular rate Rhythm: regular rhythm GI: GI Palp: Yes Soft to palpation, No Tenderness to palpation present (GI) and No Guarding due to palpation present (GI) Auscultation: normal bowel sounds : Male General Exam: Yes normal external exam Skin: General skin exam: normal color Wounds: no wounds Neuro: Speech: normal speech Motor exam (neuro): 5/5 motor strength present throughout Sensory Exam: normal sensation Extrem: General: normal to inspection and no pedal edema Psych: Mental Status: mental status grossly normal Objective Data Vital Signs Vital Signs: Vital Signs - 24 hr 03/04/22 14:09 03/04/22 14:15 03/04/22 14:16 Temperature Pulse Rate 55 L 55 L 56 L Respiratory Rate 16 14 16 Blood Pressure 115/59 L Pulse Oximetry Oxygen Delivery Oxygen Flow Rate 03/04/22 14:31 03/04/22 14:45 03/04/22 14:46 Temperature Pulse Rate 55 L 61 61 Respiratory Rate 18 16 Blood Pressure 128/73 137/58 L Pulse Oximetry Oxygen Delivery Oxygen Flow Rate 03/04/22 15:00 03/04/22 15:01 03/04/22 16:00 Temperature Pulse Rate 63 60 Respiratory Rate 15 17 Blood Pressure 132/63 Pulse Oximetry 98 Oxygen Delivery Nasal Cannula Oxygen Flow Rate 2 03/04/22 14:12 03/04/22 21:41 03/04/22 21:00 Temperature 36.6 C 37.1 C Pulse Rate 61 64 Respiratory Rate 14 18 Blood Pressure 125/54 L 137/71 Pulse Oximetry 100 100 100 Oxygen Delivery Nasal Cannula O
[2022-03-05] MEDS: ACETAMINOPHEN 500 MG TABLET 1000 MG PO (20:40)
[2022-03-05] MEDS: DONEPEZIL HCL 10 MG TABLET PO (20:46)
[2022-03-05] MEDS: MIRTAZAPINE 30 MG TABLET PO (20:46)
[2022-03-06] VITALS (12 sets, daily range): BP systolic 120–137; BP diastolic 42–67; PULSE 67–88; RESP 16–20; TEMP 36.7–37.6; O2SAT 90–98
[2022-03-06] MEDS: ALBUTEROL SULFATE NEB 2.5 MG/3 ML INH INHALATION ×4 (01:19→20:47)
[2022-03-06] MEDS: IPRATROPIUM BR 0.02% INH SOLN 0.5 MG/2.5 ML VIAL INHALATION ×4 (01:19→20:47)
[2022-03-06] MEDS: SODIUM CHLORIDE 0.9% IV 1,000 ML 100 ML IV CONT ×2 (05:48→17:15)
[2022-03-06] MEDS: LEVOTHYROXINE SODIUM 50 MCG TABLET PO (06:18)
[2022-03-06] MEDS: NICOTINE (*PBKC) 21 MG PATCH 1 PATCH TRANSDERM (09:56)
[2022-03-06] MEDS: ASPIRIN 325 MG TABLET PO (09:57)
[2022-03-06] MEDS: FINASTERIDE 5 MG TABLET PO (09:57)
[2022-03-06] MEDS: METOPROLOL TARTRATE 25 MG TABLET PO (09:57)
[2022-03-06] MEDS: TAMSULOSIN HCL 0.4 MG CAPSULE PO (09:57)
[2022-03-06] MEDS: GABAPENTIN 300 MG CAPSULE PO ×3 (09:57→17:15)
[2022-03-06] MEDS: SENNOSIDES 8.6 MG TABLET 17.2 MG PO ×2 (09:58→20:43)
--- NOTE | 2022-03-06 10:03 | PM.IMPN ---
Progress Note: A&P Assessment and Plan (1) Acute respiratory failure with hypoxia: Code(s): J96.01 - Acute respiratory failure with hypoxia Status: Acute Assessment and Plan: -the patient is currently on oxygen at 2 L per nasal cannula. - repeat CT for note patient to rule out lung mass. Will continue to treat for pneumonia with IV antibiotics (2) Pneumonia: Qualifiers: Laterality: left Lung location: lower lobe of lung Pneumonia type: due to unspecified organism Qualified Code(s): J18.9 - Pneumonia, unspecified organism Code(s): J18.9 - Pneumonia, unspecified organism Status: Acute Assessment and Plan: IV fluid resuscitation Monitor lactic acid levels Repeat CBC CMP blood cultures negative urine culture final negative repeat chest x-ray in a.m. Monitor albumin' Monitoring of mental status. Steroids suggested if septic shock on his positive fluid resuscitation and vasopressors. IV antibiotics Rocephin and Zithromax (3) BPH (benign prostatic hyperplasia): Code(s): N40.0 - Benign prostatic hyperplasia without lower urinary tract symptoms Status: Acute Assessment and Plan: Continue finasteride. Continue Flomax. (4) Bilateral hydronephrosis: Code(s): N13.30 - Unspecified hydronephrosis Status: Acute Assessment and Plan: stable findings of ultrasound (5) Generalized weakness: Code(s): R53.1 - Weakness Status: Acute Assessment and Plan: -PT and OT evaluation would greatly be appreciated -director of managed care consultation is greatly be appreciated for rehab. (6) KAT (acute kidney injury): Code(s): N17.9 - Acute kidney failure, unspecified Status: Acute Assessment and Plan: And gentle hydration. Avoid nephrotoxic drugs. Avoid NSAIDs. Routine CMP monitor GFR. Monitor electrolytes potassium levels. Dose antibiotics depending on creatinine clearance Plan continue physical therapy. Repeat chest x-ray in the morning possible discharge home with oral antibiotics if needed. CT scan as an outpatient discussed with patient family in detail DVT prophylaxis. GI prophylaxis. All records reviewed Discussed plan of care with the nursing staff and with the patient in detail. Answered all questions and concerns from the patient. All labs have been reviewed. Code status updated dictation may have been done utilizing a voice recognition system. Attempts have been made to correct errors. However, there may be uncorrected grammatical, spelling, and recognition errors present. Subjective Date/time seen: 03/06/22 10:03 Interval history: Patient appears comfortable no chest pain or shortness for breath Review of Systems Review of Systems: All systems reviewed & are unremarkable except as noted in HPI and below Exam Narrative: GENERAL: Well appearing, well-nourished, non-toxic, in no acute distress. HEAD: Normocephalic, atraumatic. NECK: Supple. No adenopathy, no masses. RESPIRATORY: Airway patent, respirations nonlabored. few crackles rales auscultation bilaterally, CARDIOVASCULAR: Regular rate and rhythm without murmurs, rubs, or gallops. Peripheral pulses 2+ and equal bilaterally. ABDOMINAL: Soft, nontender, nondistended, no hepatosplenomegaly. Normoactive BS. MUSCULOSKELETAL: no Epigastric and no hypochondrial tenderness SKIN: Warm, dry, normal color. No rashes. NEURO: A&O X3. Moves all extremities PSYCHIATRIC: Appropriate mood and affect. Normal interaction. Objective Data Vital Signs Vital Signs: Vital Signs - 24 hr 03/05/22 13:12 03/05/22 13:15 03/05/22 13:21 Temperature Pulse Rate 78 79 Respiratory Rate 18 18 Blood Pressure Pulse Oximetry 100 Oxygen Delivery Nasal Cannula Oxygen Flow Rate 2 03/05/22 13:38 03/05/22 13:50 03/05/22 14:00 Temperature 36.4 C 37.2 C Pulse Rate 64 65 Respiratory Rate 16 16 Blood Pressure 126/57 L 126
[2022-03-06] MEDS: methADONE HCL (*CRX) 10 MG TABLET PO ×2 (10:07→20:44)
[2022-03-06 10:29] LABS: Hematocrit 36.5 % (42.0-52.0); Hemoglobin 11.7 g/dL (14.0-18.0); Mean Corpuscular HGB Conc 32.1 g/dl (32-36); Mean Corpuscular Hemoglobin 31.6 pg (26-34); Mean Corpuscular Volume 98.6 fl (80-100); Mean Platelet Volume 9.3 fl (7.4-10.4); Platelet Count Result 247 k/mm3 (150-375); Red Cell Distribution Width 14.3 % (11.5-14.5); White Blood Count 12.3 K/mm3 (4.5-10.0)
[2022-03-06 10:48] LABS: Alanine Aminotransferase 15 U/L (6-50); Albumin Level 3.1 g/dL (3.5-5.1); Alkaline Phosphatase 70 U/L (38-126); Anion Gap 9 mmol/L (8-16); Aspartate Amino Transferase 41 U/L (17-59); Bilirubin,Total 0.2 mg/dL (0.2-1.3); Blood Urea Nitrogen 32 mg/dL (9-20); Calcium 8.2 mg/dL (8.4-10.2); Carbon Dioxide 23 mmol/L (22-30); Chloride 111 mmol/L (98-107); Estimated CRCL calculation 23 ml/min; Estimated Glomerular Filt Rate 45; Glucose 174 mg/dL (65-110); Potassium 4.1 mmol/L (3.4-5.0); Sodium 143 mmol/L (137-145)
[2022-03-06] MEDS: MIRTAZAPINE 30 MG TABLET PO (20:44)
[2022-03-06] MEDS: ACETAMINOPHEN 500 MG TABLET 1000 MG PO (20:44)
[2022-03-06] MEDS: DONEPEZIL HCL 10 MG TABLET PO (20:44)
[2022-03-07] VITALS (12 sets, daily range): BP systolic 132–158; BP diastolic 54–75; PULSE 77–113; RESP 14–18; TEMP 36.6–37.2; O2SAT 91–100
[2022-03-07] MEDS: IPRATROPIUM BR 0.02% INH SOLN 0.5 MG/2.5 ML VIAL INHALATION ×4 (01:46→21:10)
[2022-03-07] MEDS: ALBUTEROL SULFATE NEB 2.5 MG/3 ML INH INHALATION ×4 (01:47→21:10)
[2022-03-07] MEDS: SODIUM CHLORIDE 0.9% IV 1,000 ML 100 ML IV CONT (02:18)
[2022-03-07] MEDS: ALPRAZolam (*CRX) 0.5 MG TABLET PO (04:23)
--- NOTE | 2022-03-07 04:25 | PC.NURSE ---
Patient alert to self only. Yelling out from bed, removing covers. Unable to answer questions appropriately. Asking for . Gave xanax PRN dose . Bed alarm on. Frequent rounding.
--- NOTE | 2022-03-07 05:38 | PC.NURSE ---
Patient calm after xanax dosage given
[2022-03-07] MEDS: LEVOTHYROXINE SODIUM 50 MCG TABLET PO (05:40)
[2022-03-07 08:29] LABS: Anion Gap 6 mmol/L (8-16); Blood Urea Nitrogen 26 mg/dL (9-20); Carbon Dioxide 22 mmol/L (22-30); Chloride 111 mmol/L (98-107); Estimated CRCL calculation 25 ml/min; Estimated Glomerular Filt Rate 49; Glucose 93 mg/dL (65-110); Sodium 139 mmol/L (137-145)
[2022-03-07] MEDS: NICOTINE (*PBKC) 21 MG PATCH 1 PATCH TRANSDERM (08:33)
[2022-03-07] MEDS: SENNOSIDES 8.6 MG TABLET 17.2 MG PO ×2 (08:33→21:44)
[2022-03-07] MEDS: TAMSULOSIN HCL 0.4 MG CAPSULE PO (08:34)
[2022-03-07] MEDS: GABAPENTIN 300 MG CAPSULE PO ×3 (08:34→16:42)
[2022-03-07] MEDS: ASPIRIN 325 MG TABLET PO (08:35)
[2022-03-07] MEDS: FINASTERIDE 5 MG TABLET PO (08:35)
[2022-03-07] MEDS: METOPROLOL TARTRATE 25 MG TABLET PO (08:35)
[2022-03-07] MEDS: methADONE HCL (*CRX) 10 MG TABLET PO ×2 (08:39→21:44)
--- NOTE | 2022-03-07 10:01 | PM.IMPN ---
Progress Note: A&P Assessment and Plan (1) Acute respiratory failure with hypoxia: Code(s): J96.01 - Acute respiratory failure with hypoxia Status: Acute Assessment and Plan: -the patient is currently on oxygen at 2 L per nasal cannula. Will try to taper oxygen Will continue to treat for pneumonia with IV antibiotics (2) Pneumonia: Qualifiers: Laterality: left Lung location: lower lobe of lung Pneumonia type: due to unspecified organism Qualified Code(s): J18.9 - Pneumonia, unspecified organism Code(s): J18.9 - Pneumonia, unspecified organism Status: Acute Assessment and Plan: blood cultures negative, urine culture final negative IV antibiotics Rocephin and Zithromax (3) BPH (benign prostatic hyperplasia): Code(s): N40.0 - Benign prostatic hyperplasia without lower urinary tract symptoms Status: Acute Assessment and Plan: Continue finasteride. Continue Flomax. (4) Bilateral hydronephrosis: Code(s): N13.30 - Unspecified hydronephrosis Status: Acute Assessment and Plan: stable findings of ultrasound (5) Generalized weakness: Code(s): R53.1 - Weakness Status: Acute Assessment and Plan: -PT and OT evaluation would greatly be appreciated -daycare worker consultation is greatly appreciated for rehab. (6) KAT (acute kidney injury): Code(s): N17.9 - Acute kidney failure, unspecified Status: Acute Assessment and Plan: renal function close to baseline. Discontinue IV fluids to avoid fluid overload. Avoid nephrotoxic drugs. Avoid NSAIDs. Plan dictation may have been done utilizing a voice recognition system. Attempts have been made to correct errors. However, there may be uncorrected grammatical, spelling, and recognition errors present. Subjective Date/time seen: 03/07/22 10:01 patient reports no complaints at this time. Breathing is somewhat better. Review of Systems Review of Systems: All systems reviewed & are unremarkable except as noted in HPI and below Exam Narrative: GENERAL: Well appearing, well-nourished, non-toxic, in no acute distress. HEAD: Normocephalic, atraumatic. NECK: Supple. No adenopathy, no masses. RESPIRATORY: Airway patent, respirations nonlabored. few crackles rales auscultation bilaterally, CARDIOVASCULAR: Regular rate and rhythm without murmurs, rubs, or gallops. Peripheral pulses 2+ and equal bilaterally. ABDOMINAL: Soft, nontender, nondistended, no hepatosplenomegaly. Normoactive BS. MUSCULOSKELETAL: no Epigastric and no hypochondrial tenderness SKIN: Warm, dry, normal color. No rashes. NEURO: A&O X3. Moves all extremities PSYCHIATRIC: Appropriate mood and affect. Normal interaction. Objective Data Vital Signs Vital Signs: Vital Signs - 24 hr 03/06/22 10:08 03/06/22 14:24 03/06/22 14:29 Temperature 98.7 F Pulse Rate 86 74 71 Respiratory Rate 20 18 18 Blood Pressure 133/67 Pulse Oximetry 91 94 Oxygen Delivery Nasal Cannula Oxygen Flow Rate 2 03/06/22 14:45 03/06/22 20:50 03/06/22 22:44 Temperature 99.7 F H Pulse Rate 77 78 88 Respiratory Rate 16 18 18 Blood Pressure 120/42 L Pulse Oximetry 96 Oxygen Delivery Oxygen Flow Rate 03/07/22 01:48 03/07/22 06:00 03/07/22 08:35 Temperature 97.9 F Pulse Rate 77 113 H 84 Respiratory Rate 14 18 Blood Pressure 141/75 H Pulse Oximetry 97 Oxygen Delivery Oxygen Flow Rate Intake/Output Intake/Output: Intake & Output 03/04/22 03/05/22 03/06/22 03/07/22 23:59 23:59 23:59 23:59 Intake Total 1360 / 1360 3230 / 3230 4680 / 4680 2402 / 2402 Output Total 100 / 100 Balance 1260 / 1260 3230 / 3230 4680 / 4680 2402 / 2402 Meds/Results Medications: Active Medications Generic Name Dose Route Start Last Admin Trade Name Freq PRN Reason Stop Dose Admin Acetaminophen 1,000 mg 03/04/22 22:40 03/06/22 20:44 Acetaminophen 500 M
--- NOTE | 2022-03-07 15:01 | PCOTNOTE ---
Attempted to see pt for occupational therapy treatment. Pt refuses to participate in therapy stating Nope...not right now repeatedly. Pt was educated to get up out of bed for continued strengthening and independence with self care tasks, however, pt continues to refuse stating I will do that later... . Pt also declined to complete any therapeutic activities and/or UE strengthening. Will continue per poc duration/frequency tomorrow.
[2022-03-07] MEDS: DONEPEZIL HCL 10 MG TABLET PO (21:44)
[2022-03-07] MEDS: ACETAMINOPHEN 500 MG TABLET 1000 MG PO (21:44)
[2022-03-07] MEDS: MIRTAZAPINE 30 MG TABLET PO (21:44)
[2022-03-08] VITALS (11 sets, daily range): BP systolic 132; BP diastolic 93; PULSE 60–124; RESP 16–18; TEMP 36.6; O2SAT 86–96
[2022-03-08] MEDS: ALBUTEROL SULFATE NEB 2.5 MG/3 ML INH INHALATION ×2 (02:08→07:54)
[2022-03-08] MEDS: IPRATROPIUM BR 0.02% INH SOLN 0.5 MG/2.5 ML VIAL INHALATION ×2 (02:11→07:54)
[2022-03-08] MEDS: LEVOTHYROXINE SODIUM 50 MCG TABLET PO (05:39)
[2022-03-08 08:03] LABS: Anion Gap 10 mmol/L (8-16); Blood Urea Nitrogen 26 mg/dL (9-20); Calcium 8.1 mg/dL (8.4-10.2); Carbon Dioxide 21 mmol/L (22-30); Chloride 109 mmol/L (98-107); Estimated CRCL calculation 25 ml/min; Estimated Glomerular Filt Rate 49; Glucose 97 mg/dL (65-110); Potassium 4.2 mmol/L (3.4-5.0); Sodium 140 mmol/L (137-145)
[2022-03-08] MEDS: FINASTERIDE 5 MG TABLET PO (08:52)
[2022-03-08] MEDS: SENNOSIDES 8.6 MG TABLET 17.2 MG PO (08:52)
[2022-03-08] MEDS: ASPIRIN 325 MG TABLET PO (08:52)
[2022-03-08] MEDS: GABAPENTIN 300 MG CAPSULE PO (08:52)
[2022-03-08] MEDS: methADONE HCL (*CRX) 10 MG TABLET PO (08:53)
[2022-03-08] MEDS: METOPROLOL TARTRATE 25 MG TABLET PO (08:53)
[2022-03-08] MEDS: NICOTINE (*PBKC) 21 MG PATCH 1 PATCH TRANSDERM (08:53)
[2022-03-08] MEDS: TAMSULOSIN HCL 0.4 MG CAPSULE PO (08:54)
--- NOTE | 2022-03-08 08:54 | PM.DS ---
DS: Admitting Diagnosis Discharge Date 03/08/22 Admitting Diagnosis Acute hypoxic respiratory failure DS: Summary Hospital Course Hospital Course: This is an 80-year-old male patient who is very hard of hearing.? The patient came to the emergency room with complaints of generalized weakness.? The patient appears to be very frail.? The patient woke up feeling okay this morning and then progressively got weaker.? He denies any focalized symptoms.? According to his family the patient recently started a diuretic for the swelling in his ankles and feet.? He denies any fever cough chest pain abdominal pain nausea vomiting or diarrhea.? His H&H is 11.5 and 36.8 which is his baseline.? Arterial blood gases his pH is slightly low at 7.342.? His creatinine is 2.10 which was normal last month.? His lactic is normal.? Patient was positive for benzodiazepines and methadone.? The patient was negative for influenza A/B and COVID.? The patient was given 2 L of IV fluids and started on azithromycin Rocephin.? Chest x-ray was read as the following:?Persistent left lower lobe infiltrate and/atelectasis. Chronic bilateral apical fibrocalcific scarring. Emphysema, possible pulmonary hypertension? CT of the head was read as cerebral atherosclerosis and chronic small-vessel ischemic changes of the cerebral white matter no acute intracranial findings. Abdominal pelvis CT from yesterday was read as the following: Persistent prominent bilateral hydronephrosis and bladder wall thickening Bilateral internal urinary stents are again noted. Increased bile duct dilatation since 08/27/2021; recommend correlation with serum bilirubin level. Consider MRCP as clinically appropriate. Hepatic cysts. Thickening of the rectal wall. Patient was started on IV Rocephin azithromycin for community-acquired pneumonia. He had KAT so he was started on IV fluids. His KAT has resolved. His creatinine is 1.4 which is close to his baseline of 1.2. Patient is still requiring oxygen so we will do a home O2 eval and discharge the patient home with oxygen if needed. Patient will be going home with oral Augmentin for 3 more days. Time Spent with Patient Time attestation: Total time spent providing and/or coordinating discharge services: Exam Narrative: GENERAL: Well appearing, well-nourished, non-toxic, in no acute distress. HEAD: Normocephalic, atraumatic. NECK: Supple. No adenopathy, no masses. RESPIRATORY: Airway patent, respirations nonlabored. few crackles rales auscultation bilaterally, CARDIOVASCULAR: Regular rate and rhythm without murmurs, rubs, or gallops. Peripheral pulses 2+ and equal bilaterally. ABDOMINAL: Soft, nontender, nondistended, no hepatosplenomegaly. Normoactive BS. MUSCULOSKELETAL: no Epigastric and no hypochondrial tenderness SKIN: Warm, dry, normal color. No rashes. NEURO: A&O X3. Moves all extremities PSYCHIATRIC: Appropriate mood and affect. Normal interaction. DS: Data Data Completed and Pending Labs on day of discharge: Labs from last 24 hours 03/08/22 07:31 Sodium 140 Potassium 4.2 Chloride 109 H Carbon Dioxide 21 L Anion Gap 10 BUN 26 H Creatinine 1.40 H Estim Creat Clear Calc 25 Estimated GFR 49 L Glucose 97 Calcium 8.1 L Preliminary micro results at discharge 03/06/22 11:53 Sputum Culture - Preliminary Sputum 03/04/22 13:31 Blood Culture - Preliminary Blood 03/04/22 13:31 Blood Culture - Preliminary Blood Discharge Plan Discharge Consulting providers: Julia Trejo Discharging Clinician: Helio Urena Anticipated Discharge Date/Time: 03/08/22 08:51 Patient Disposition: Home Health Service Activity: august shower Diet: heart healthy Discharge Instructions: Per Care Coordination. Patient to have [facility] for RN/PT/OT eval and treat [phone]. They will contact you to schedule first appointment. Patient Instructions: Antibiotic Form, Aspirin (By mouth), Safe Use of Anticoagula
--- NOTE | 2022-03-08 10:37 | HOMEO2EVAL ---
Evaluation was performed at [facility] Home Oxygen Evaluation RC: Home Oxygen (O2) Evaluation Start: 03/08/22 08:18 Freq: ONCE Status: Active Protocol: RPE Activity Type Activity Date Activity User E-sign Co-sign Detail Recorded Client Recorded Date Recorded By Document 03/08/22 10:00 KRM [id number] 03/08/22 10:37 KRM Document 03/08/22 10:02 [email or web address] [id number] 03/08/22 10:37 KRM Document 03/08/22 10:05 KRM [email or web address] 03/08/22 10:37 KRM Document 03/08/22 10:10 KRM [email or web address] 03/08/22 10:37 KRM 03/08/22 03/08/22 03/08/22 10:00 10:02 10:05 Home O2 Evaluation [Oxygen] -Test Phase Resting Resting Resting -Oxygen Delivery Room Air Nasal Cannula Nasal Cannula -Oxygen Flow Rate (L/min) 1 2 [Pulse Oximetry] -Pulse Oximetry (90-100 %) 86 L 88 L 90 [Pulse Rate] -Pulse Rate (60-100 beats/min) 75 76 74 [Evaluation] -Activity Tolerance [Exercise] -Ambulation Distance (feet) -Ambulation Distance (meters) [Comments] -Home Oxygen Evaluation Comments [Charges] -Treatment Charges O2 Evaluation - Inpatient 03/08/22 10:10 Home O2 Evaluation [Oxygen] -Test Phase Exercise -Oxygen Delivery Nasal Cannula -Oxygen Flow Rate (L/min) 2 [Pulse Oximetry] -Pulse Oximetry (90-100 %) 94 [Pulse Rate] -Pulse Rate (60-100 beats/min) 104 H [Evaluation] -Activity Tolerance Good [Exercise] -Ambulation Distance (feet) 50 -Ambulation Distance (meters) 15.23 [Comments] -Home Oxygen Evaluation Comments 2LPM AT REST AND WITH ACTIVITY. [Charges] -Treatment Charges
--- NOTE | 2022-03-08 11:30 | PCRCNOTE ---
PT. REQUIRES 2LPM O2 AT REST AND WITH ACTIVITY. SET PT. UP WITH IV RESP CARE DME. TANK IN ROOM.
== END 2022-03-08 12:47 | disposition home health service (06) | DRG 194 ==
LOC: ANHED 13:56 → ANH2MED 15:01
PROVIDERS: Internal Medicine; Nurse Practitioner; Physician Assistant; Admitting Provider Chiropractor; Emergency Provider Emergency Medicine; PCP Family Medicine Adolescent Medicine; Visit Provider Hospitalist
DX: J18.9 Pneumonia, unspecified organism (principal); N13.30 Unspecified hydronephrosis; N17.9 Acute kidney failure, unspecified; J43.9 Emphysema, unspecified; N40.0 Benign prostatic hyperplasia without lower urinary tract symptoms; F03.90 Unspecified dementia, unspecified severity, without behavioral disturbance, psychotic disturbance, mood disturbance, and anxiety; R53.1 Weakness; E03.9 Hypothyroidism, unspecified; F17.210 Nicotine dependence, cigarettes, uncomplicated; F41.8 Other specified anxiety disorders; M19.09 Primary osteoarthritis, other specified site; I10 Essential (primary) hypertension; M85.80 Other specified disorders of bone density and structure, unspecified site; Z20.822 Contact with and (suspected) exposure to COVID-19; Z98.2 Presence of cerebrospinal fluid drainage device; Z79.899 Other long term (current) drug therapy
CPT/HCPCS: 36415; 36600; 51701; 70450; 71046; 74178; 76775; 80048; 80053; 80307; 81001; 82375; 82805; 83050; 83605; 83735; 84443; 85025; 85027; 86140; 87040; 87070; 87077; 87186; 87205; 87636; 93005; 94618; 94640; 96361; 96365; 96367; 97162; 97165; 99285; A9270; G0378; J0456; J0696; J7030; J7040; Q9967

== ENCOUNTER 2022-03-13 14:04 | Inpatient (IN) | payer MEDICARE, SELFPAY ==
[2022-03-13] VITALS (14 sets, daily range): BP systolic 108–155; BP diastolic 46–85; PULSE 74–92; RESP 14–22; TEMP 36.6–37; O2SAT 92–100; BMI 17.6
--- NOTE | ~2022-03-13 | CT_ITS ---
EXAMINATION:CT diagnostic chest wo con DATE: 03/15/2022 14:56 INDICATION: Pneumonia. TECHNIQUE: Computed tomography (CT) of the chest was performed without intravenous contrast. Automate d exposure control and iterative reconstruction technique were employed. The dose-length product (DLP ) was 256.53 mGy-cm. COMPARISON: Chest CT 12/30/2021, chest single view 03/13/2022 FINDINGS: There is severe emphysema. There are moderate-sized right and small left pleural effusions. There is a new 7 mm nodule in left lower lobe, likely infection. There is septal thickening in the l ungs bilaterally, likely pulmonary edema. There are patchy groundglass opacities in left upper lobe. There is dependent atelectasis bilaterally. There are chronic airspace opacities with calcifications in the upper lobes, consistent with old granulomatous disease. The heart size is normal. There are co ronary artery calcifications. No pericardial effusion. Calcified mediastinal and right hilar lymph no jerrica are consistent with old granulomas disc disease. There is a 2.4 cm cyst in the liver. Partially v isualized are bilateral internal ureteral stents. There is moderate right hydronephrosis. There is wi despread edema of the body fat. There is a small volume of ascites. There is severe thoracic and lumb ar spondylosis. There are changes of anterior fusion procedure at C6-C7. IMPRESSION: 1. Moderate-sized right and small left pleural effusions. 2. Diffuse lung disease, consistent with pulmonary edema and left-sided pneumonia. 3. Severe emphysema. Chronic calcified airspace opacities in the upper lobes, consistent with old gra nulomatous disease. 4. Small volume of ascites. 5. Moderate right hydronephrosis. Bilateral internal ureteral stents partially visualized. Reviewed, dictated and finalized at location A. STANT TODDLER TEACHER IMPRESSION: 1. Moderate-sized right and small left pleural effusions. 2. Diffuse lung disease, consistent with pulmonary edema and left-sided pneumon ia. 3. Severe emphysema. Chronic calcified airspace opacities in the upper lobes, c onsistent with old granulomatous disease. 4. Small volume of ascites. 5. Moderate right hydronephrosis. Bilateral internal ureteral stents partially visualized.
--- NOTE | ~2022-03-13 | US_ITS ---
EXAMINATION: US venous doppler [facility] DATE: 03/15/2022 11:27 INDICATION: Lower limb edema. TECHNIQUE: Grayscale ultrasound images without and with compression and Doppler ultrasound images of the bilateral lower extremity veins were obtained. COMPARISON: None. FINDINGS: The visualized portions of right common femoral vein, profunda (deep) femoral vein, femoral vein, pop liteal vein, peroneal veins, posterior tibial veins, and greater saphenous vein outflow are patent. The visualized portions of left common femoral vein, profunda femoral vein, femoral vein, popliteal v ein, peroneal veins, posterior tibial veins, and greater saphenous vein outflow are patent. IMPRESSION: 1. No deep venous thrombosis. Reviewed, dictated and finalized at location A. PADDER
--- NOTE | ~2022-03-13 | XR_ITS ---
MODIFIED ESOPHAGRAM HISTORY: Cough. Possible aspiration. Previous pneumonia. TECHNIQUE: Modified barium esophagram was performed by speech pathologist under radiologist fluorosco pic guidance. This was recorded on tape. The exam was reviewed on 03/15/2022 10:57 PNP. The DAP fo r this procedure was XXXXDAP#.#[id number] Gycm2. Fluoroscopy time is . FINDINGS: Lateral projection of the cervical spine demonstrates normal alignment. During pharyngeal stage there is reduced laryngeal elevation with follicular residue. No evidence for laryngeal penetr ation or aspiration.. IMPRESSION: 1: No evidence for penetration or aspiration. 2: Please refer to speech pathologist report for additional detail. Reviewed, dictated and finalized at location A.
--- NOTE | ~2022-03-13 | CT_ITS ---
EXAMINATION: CT abdomen pelvis w con DATE: 03/13/2022 15:56 INDICATION: Abdominal pain TECHNIQUE: Computed tomography (CT) of the abdomen and pelvis was performed with 100 mL Omnipaque-350 intravenous contrast. Automated exposure control and iterative reconstruction technique were employe d. The dose-length product was 346.84 mGy-cm. COMPARISON: 03/03/2022. FINDINGS: Lower thorax: Senescent and emphysematous change. Coronary artery calcification. Bibasilar dependent atelectasis. Small bilateral effusions. Liver: Multiple hepatic cysts. Multiple hypodensities that are too small to characterize. Mild intrah epatic biliary duct dilation. Biliary/Gallbladder: Gallbladder is absent. Mild extrahepatic duct dilation, presumably due to prior cholecystectomy. Pancreas: Atrophic. Spleen: Normal. Adrenals:No mass. Kidneys: Bilateral renal cortical thinning. Moderate bilateral pelvic caliectasis, stable. Bilateral nephroureteral stents, in good position. No obstructing calculi. No suspicious renal mass. GI tract: Distal esophageal wall edema. Diffuse small bowel dilation, no transition point identified. Mild distal sigmoid dilation by formed stool up to 5.4 cm. Large volume of fecal material in the lar ge bowel. Rectal wall thickening. Appendix not visualized. Mesentery/Peritoneum: No ascites, mass, or free air. Retroperitoneum: No mass. Atherosclerotic abdominal aortic and/or arterial calcifications. Pelvis: Urinary bladder wall thickening, slightly improved.. Soft Tissues: Soft tissues and body wall unremarkable. Bones: No acute osseous finding. IMPRESSION: Bibasilar dependent atelectasis/consolidation. Small bilateral effusions, both increased since the pr ior study. Small bowel ileus or obstruction. Possible fecal impaction/constipation. Rectal wall thick ening, consider nonemergent referral to evaluate for rectal mass. Reviewed, dictated and finalized at location K. RECOATER IMPRESSION: Bibasilar dependent atelectasis/consolidation. Small bilateral effusions, both increased since the prior study. Small bowel ileus or obstruction. Possible fec al impaction/constipation. Rectal wall thickening, consider nonemergent referra l to evaluate for rectal mass.
--- NOTE | ~2022-03-13 | XR_ITS ---
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 hx htn, pneumonia Comparison: 03/07/2022. RESULT: Lines, tubes, and devices: None. Lungs and pleura: Diffuse reticular opacities overlying senescent change. Decreasing bilateral angle blunting apical. Upper lobe scarring with hilar retraction and upper lung opacities/masses. Cardiomediastinal silhouette: Stable. Other: No acute osseous or upper abdominal finding. IMPRESSION: Interstitial pulmonary edema, similar to the prior. Improved bibasilar aeration and small bilateral e ffusions. Reviewed, dictated and finalized at location K. MACHINE OPERATOR IMPRESSION: Interstitial pulmonary edema, similar to the prior. Improved bibasilar aeration and small bilateral effusions.
--- NOTE | 2022-03-13 14:04 | ED.ABDPAIN ---
HPI - Abdominal Pain General Chief Complaint: Abdominal Pain Stated Complaint: ABD PAIN WITH DISTENTION Source: patient, family and EMS Mode of arrival: EMS Limitations: no limitations History of Present Illness HPI narrative: 81 years old white male came to the emergency room by ambulance from home with his and son. His is telling me that patient been feeling goofy, less responsive, swollen abdomen, and feet,, constant diarrhea all the time. Patient been having rattling sound breathing for the last 7 days even before discharging from the hospital. Related Data Home Medications Medication Instructions Recorded Confirmed vit C 250 mg-vit E 90 mg-zinc 40 2 tablet PO BID 04/29/19 03/04/22 mg-copper 1 [id number] capsule (PreserVision AREDS-2) levothyroxine 50 mcg tablet 50 mcg PO DAILY 11/27/21 03/04/22 acetaminophen 500 mg tablet 1,000 mg PO HS 02/02/22 03/04/22 polyethylene glycol 3350 17 gram 17 g PO DAILY 02/11/22 03/04/22 oral powder packet (Miralax) Allergies Allergy/AdvReac Type Severity Reaction Status Date / Time Antihistamines - Alkylamine Allergy Unknown Verified 03/13/22 14:26 Review of Systems Review of Systems: All systems reviewed & are unremarkable except as noted in HPI and below PMFSH Past Medical History Medical History Acute appendicitis with generalized peritonitis, without gangrene or abscess Acute hyperkalemia KAT (acute kidney injury) Arthritis Bilateral hydronephrosis Causing outlet obstruction and KAT 01/2022, s/p bilateral ureteral stents BPH (benign prostatic hyperplasia) Colitis Depression with anxiety Edema Essential hypertension History of stent insertion of renal artery Hypernatremia Hypothyroid Mycobacterial infection, 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 Uses walker for ambulation. Previously on hospice, revoked in Feb 2021. His PCP is Dr. Valdez. His , Deyanira, is his surrogate decision maker. He has 3 children. He is retired. Code status full code. Smoking packs per day: 2 Smoking cigarettes per day: 40.0 Years smoked: 62 Smoking pack-years: 124.00 Smoking status: Current every day smoker Tobacco type: cigarettes Alcohol intake: former Substance use: never Substance use type: does not use Lack of Transportation: No Lack of Food: Never True Current Housing: I Have Housing Concerned About Future Housing: No Difficulty Paying Gas/Electric Bills: No Difficulty Paying for Meds: No Currently Unemployed: No Education: High School Diploma/GED Difficulty w/ Childcare or Family Care: No Spiritual care concerns: No Exam Narrative: General appearance: Ill appearing Skin: Normal color Head: Normocephalic, nontraumatic Eyes: Clear conjunctiva ENT: Oropharynx normal, ears normal, nose normal Neck:
[2022-03-13] MEDS: SODIUM CHLORIDE 0.9% IV 1,000 ML 999 ML IV CONT (14:43)
[2022-03-13] MEDS: ONDANSETRON INJ 4 MG/2 ML VIAL IV PUSH (14:44)
[2022-03-13 15:10] LABS: Basophils Percent Auto 0.2 % (0.2-1.2); Eosinophils Percent Auto 0.1 % (0-4.4); Hematocrit 38.6 % (42.0-52.0); Immature Granulocyte Percent A 0.5 % (0-0.5); Lymphocytes Absolute Auto 1.05 K/mm3 (0.9-3.2); Lymphocytes Percent Auto 5.1 % (18.3-44.2); Mean Corpuscular HGB Conc 31.1 g/dl (32-36); Mean Corpuscular Hemoglobin 30.8 pg (26-34); Mean Corpuscular Volume 99.2 fl (80-100); Mean Platelet Volume 9.6 fl (7.4-10.4); Monocytes Percent Auto 4.8 % (2.6-8.5); Neutrophils Absolute Auto 18.4 K/mm3 (1.3-6.7); Neutrophils Percent Auto 89.3 % (45.5-73.1); Platelet Count Result 299 k/mm3 (150-375); Red Blood Count 3.89 M/mm3 (4.6-6.20); Red Cell Distribution Width 13.9 % (11.5-14.5); White Blood Count 20.6 K/mm3 (4.5-10.0)
[2022-03-13 15:20] LABS: Alanine Aminotransferase 17 U/L (6-50); Albumin Level 3.2 g/dL (3.5-5.1); Alkaline Phosphatase 88 U/L (38-126); Anion Gap 10 mmol/L (8-16); Aspartate Amino Transferase 48 U/L (17-59); Bilirubin,Total 0.5 mg/dL (0.2-1.3); Blood Urea Nitrogen 42 mg/dL (9-20); Carbon Dioxide 24 mmol/L (22-30); Chloride 107 mmol/L (98-107); Estimated CRCL calculation 23 ml/min; Estimated Glomerular Filt Rate 39; Glucose 142 mg/dL (65-110); Potassium 4.2 mmol/L (3.4-5.0); Sodium 141 mmol/L (137-145)
[2022-03-13 15:27] LABS: Appearance Urine Clear (Clear); Bilirubin Urine Negative (Negative); Blood Urine 2+ (Negative); Color Urine Yellow (Yellow); Glucose Urine UA Negative (Negative); Ketones Urine Trace mg/dL (Negative); Leukocyte Esterase Ur 2+ LEU/UL (Negative); Nitrate Urine Negative (Negative); Protein Urine 1+ mg/dL (Negative); Specific Grav Ur 1.015 (1.001-1.035); Urobilinogen Urine 0.2 mg/dL (<2.0)
[2022-03-13 15:38] LABS: Mucus Urine Rare /lpf; RBC Urine 51-75 /hpf (0-2); WBC Urine 21-30 /hpf
[2022-03-13 15:39] LABS: Add Urine Microscopic? YES
[2022-03-13 17:00] LABS: Lactic Acid Reflex 1.4 mmol/L (0.7-2.0)
[2022-03-13 17:10] LABS: NT Pro B Type Natriuretic Pept 855 pg/mL (5-100)
--- NOTE | 2022-03-13 18:28 | PM.IMHP ---
H&P: HPI History of Present Illness Date/Time: 03/13/22 18:28 Chief Complaint: Abdominal pain Narrative: This is an 81-year-old male patient to came it to the emergency room via ambulance. His is at the bedside. The patient has been coughing and was less responsive. The patient has been treated for pneumonia multiple times. The patient was just discharged from here on 03/08/2022 after being treated for community-acquired pneumonia. The patient was discharged with Augmentin. Patient's sputum culture came back on 03/06/2022 as Klebsiella pneumoniae ESBL which was sensitive to Augmentin. The patient is not on oxygen at home but is currently on 3 L. and then desatted had to be placed on a BiPAP. Chest x-ray was read as interstitial pulmonary edema, similar to the prior improved bibasilar area mcginnis and small bilateral effusions. Abdominal pelvis CT was read as the following Bibasilar dependent atelectasis/consolidation. Small bilateral effusions, both increased since the prior study. Small bowel ileus or obstruction. Possible fecal impaction/constipation. Rectal wall thickening, consider nonemergent referral to evaluate for rectal mass. According to the the patient has just been having liquid stools. The patient was started on Zosyn, Zofran and IV fluids as well as Tylenol in the emergency room. Patient's white count is 20.6. H&H is 12.0 in 38.6 which is his baseline. His creatinine is 1.7 with a baseline anywhere from 1.4-1.5. His BNP is 855. His urine appears to be infected as well. He is negative for influenza A/B and COVID as well as RSV. The patient is being admitted to inpatient status on the date of service of 03/13/2022. Review of Systems Review of Systems: See HPI All systems reviewed & are unremarkable except as noted in HPI and below Constitutional: Constitutional: Reports as per HPI and Reports no additional constitutional complaints Eyes: Eyes: Reports as per HPI and Reports no additional eye complaints ENT: Reports system reviewed and no additional complaints, except as documented and Reports Normal hearing present Cardiovascular: Cardiovascular: Reports no additional cardiovascular complaints Respiratory: Respiratory: Reports no additional respiratory complaints and Reports no additional respiratory complaints Gastrointestinal: Gastrointestinal: Reports as per HPI and Reports no additional gastrointestinal complaints Musculoskeletal: Musculoskeletal: Reports no additional musculoskeletal complaints Integumentary/Breasts: Skin/Breast: Reports system reviewed and no additional complaints, except as docu and Reports as per HPI Neurologic: Reports system reviewed and no additional complaints, except as documented, Reports as per HPI and Reports Normal hearing present Psychiatric: Psychiatric: Reports no additional psychiatric complaints and Reports as per HPI Endocrine: Endocrine: Reports no additional endocrine complaints Hematologic/Lymphatic: Hematologic/Lymphatic: Reports no additional hematologic/lymphatic complaints Allergic/Immunologic: Allergic/Immunologic: Reports no additional allergic/immunologic complaints [facility] Past Medical History Medical History (Updated 03/13/22 @ 20:11 by Mariza Longoria NP) Acute appendicitis with generalized peritonitis, without gangrene or abscess Acute hyperkalemia KAT (acute kidney injury) Arthritis Bilateral hydronephrosis Causing outlet obstruction and KAT 01/2022, s/p bilateral ureteral stents BPH (benign prostatic hyperplasia) Colitis Depression with anxiety Edema Essential hypertension History of stent insertion of renal artery Hypernatremia Hypothyroid Mycobacterial infection, 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
[2022-03-13 18:40] LABS: Influenza A QL RT-PCR Negative (Negative); Influenza B QL RT-PCR Negative (Negative); SARS-CoV-2 RNA PCR Negative
[2022-03-13 18:55] LABS: Influenza A QL RT-PCR Negative (Negative); Influenza B QL RT-PCR Negative (Negative); RSV RNA, RT-PCR Negative (Negative); SARS-CoV-2 RNA PCR Negative
[2022-03-13] MEDS: ALBUTEROL SULFATE NEB 2.5 MG/3 ML INH 5 MG INHALATION (19:20)
--- NOTE | 2022-03-13 21:22 | ADMGEN ---
This patient, Edin Nguyen, was admitted to IMU Room 232-01 at 2100. Patient/family oriented to hospital policies and general routines including ID bracelet, bed and alarms, visiting hours, pain management, procedures, bathroom and other care routines, personal items, smoking policy, room service/diet, and visiting hours. Information on how to activate the Rapid Response Team has been discussed. Patient/Family are encouraged to report perceived risks to care and to ask questions if they do not understand what they are told or what they should do.
[2022-03-13 21:23] LABS: Alveolar/Arterial O2 Gradient 470.6 mmHg; Base Excess ABG -0.1 mEq/l (+/-2.0); Fractional Inspired Oxygen 100 %; HCO3 ABG 24.2 mEq/l (22.0-26.0); Oxygen Content ABG 16.4 %vol (16.0-22.0); Oxygen Saturation ABG 99.4 % (95.0-100.0); Oxyhemoglobin 97.8 % THb (90.0-100.0); PCO2 ABG 38.1 mmHg (35.0-45.0); PO2 ABG 204.3 mmHg (80.0-100.0); PO2 FiO2 Ratio Arterial Blood 2.04 %; Total Hemoglobin 11.6 g/dL (12.0-18.0); pH ABG 7.421 (7.350-7.450)
[2022-03-13 21:25] LABS: Device NON-INVASIVE VENT; Modified Allen's Test Unable to perform; Site Drawn RIGHT BRACHIAL
[2022-03-13 21:26] LABS: Non-Invasive Expiratory Pressure 7 CMH2O; Non-Invasive Inspiratory Pressure 15 CMH2O; Non-Invasive Vent Rate 14 /MIN
[2022-03-13] MEDS: SODIUM CHLORIDE 0.9% IV 1,000 ML 125 ML IV CONT (22:25)
[2022-03-13] MEDS: MEGESTROL ACETATE (*CHEMO) 40 MG TABLET PO (22:27)
[2022-03-13] MEDS: FUROSEMIDE INJ 40 MG/4 ML VIAL 20 MG IV PUSH (22:27)
[2022-03-14] VITALS (20 sets, daily range): BP systolic 89–141; BP diastolic 41–72; PULSE 59–114; RESP 16–28; TEMP 36.3–37.7; O2SAT 93–100
[2022-03-14] MEDS: IPRATROPIUM BR 0.02% INH SOLN 0.5 MG/2.5 ML VIAL 0.75 MG INHALATION ×4 (02:56→20:16)
[2022-03-14] MEDS: ALBUTEROL SULFATE NEB 2.5 MG/3 ML INH 5 MG INHALATION ×4 (02:56→20:16)
--- NOTE | 2022-03-14 03:10 | ECG_ITS ---
Measurements Intervals [place] Rate: 117 P: AK: 0 QRS: 83 QRSD: 85 T: 60 QT: 264 QTc: 370 Interpretive Statements ATRIAL FIBRILLATION WITH RAPID VENTRICULAR RESPONSE BORDERLINE T WAVE ABNORMALITY- DIFFUSE LEADS ABNORMAL ECG COMPARED TO ECG 03/04/2022 12:16:07 ATRIAL FIBRILLATION NOW PRESENT Electronically Signed On 03-14-2022 9:11:20 PRIMING MIXTURE CARRIER by Kamar Zhao D.O.
[2022-03-14] MEDS: DIGOXIN INJ 250 MCG/ML 2 ML AMP (*BKC) 125 MCG IV PUSH (03:34)
[2022-03-14 05:41] LABS: Hematocrit 29.4 % (42.0-52.0); Hemoglobin 9.2 g/dL (14.0-18.0); Mean Corpuscular HGB Conc 31.3 g/dl (32-36); Mean Corpuscular Hemoglobin 31.2 pg (26-34); Mean Corpuscular Volume 99.7 fl (80-100); Mean Platelet Volume 9.8 fl (7.4-10.4); Platelet Count Result 246 k/mm3 (150-375); Red Blood Count 2.95 M/mm3 (4.6-6.20); Red Cell Distribution Width 13.7 % (11.5-14.5); White Blood Count 9.8 K/mm3 (4.5-10.0)
[2022-03-14 05:50] LABS: Anion Gap 8 mmol/L (8-16); Blood Urea Nitrogen 42 mg/dL (9-20); Calcium 8.1 mg/dL (8.4-10.2); Carbon Dioxide 24 mmol/L (22-30); Chloride 110 mmol/L (98-107); Estimated CRCL calculation 26 ml/min; Estimated Glomerular Filt Rate 49; Glucose 137 mg/dL (65-110); Potassium 3.9 mmol/L (3.4-5.0); Sodium 142 mmol/L (137-145)
[2022-03-14 06:06] LABS: Band Neutrophils Percent 16 % (0-6); Lymphocytes Absolute Manual 0.68 K/mm3 (1.1-4.5); Monocytes Absolute Manual 0.49 K/mm3 (0.1-0.90); Monocytes Percent Manual 5 % (3-9); Neutrophils Absolute Manual 8.62 K/mm3 (1.3-6.7); Neutrophils Percent Manual 72 % (46-73); Platelet Estimate Adequate (Adequate); Total Cells Counted 100
[2022-03-14] MEDS: LEVOTHYROXINE SODIUM 50 MCG TABLET PO (06:08)
[2022-03-14] MEDS: SODIUM CHLORIDE 0.9% IV 1,000 ML 125 ML IV CONT (06:15)
[2022-03-14] MEDS: GABAPENTIN 300 MG CAPSULE PO ×3 (08:43→17:37)
[2022-03-14] MEDS: ASPIRIN 81 MG ENTERIC TABLET PO (08:43)
[2022-03-14] MEDS: TAMSULOSIN HCL 0.4 MG CAPSULE PO (08:44)
[2022-03-14] MEDS: METOPROLOL TARTRATE 25 MG TABLET PO (08:44)
[2022-03-14] MEDS: FINASTERIDE 5 MG TABLET PO (08:44)
[2022-03-14] MEDS: SENNOSIDES 8.6 MG TABLET 17.2 MG PO ×2 (08:45→20:59)
[2022-03-14] MEDS: OPTI-GEN TAB 2 TABLET PO ×2 (08:45→17:38)
[2022-03-14] MEDS: ENOXAPARIN 30 MG/0.3 ML SYRINGE SUB-Q (08:46)
[2022-03-14] MEDS: MEGESTROL ACETATE (*CHEMO) 40 MG TABLET PO ×4 (08:47→21:00)
[2022-03-14] MEDS: methADONE HCL (*CRX) 10 MG TABLET PO ×2 (09:08→20:59)
[2022-03-14] MEDS: FUROSEMIDE INJ 40 MG/4 ML VIAL IV PUSH (10:01)
--- NOTE | 2022-03-14 11:00 | WPDGICN ---
Assessment and Plan Assessment and plan (1) Rectal mass: Code(s): K62.89 - Other specified diseases of anus and rectum Status: Acute Assessment and Plan: the findings were inconclusive and CT scan, however on rectal examination I definitely feel mass and it feels circumferential with narrowed lumen. When it is felt that he is stable I will perform a limited colonoscopy to examine the rectum and hopefully shed light on his diarrhea as well (2) Diarrhea: Code(s): R19.7 - Diarrhea, unspecified Status: Acute Assessment and Plan: This is likely due to the partial obstruction in the rectum. (3) Pneumonia: Qualifiers: Laterality: left Lung location: lower lobe of lung Pneumonia type: due to unspecified organism Qualified Code(s): J18.9 - Pneumonia, unspecified organism Code(s): J18.9 - Pneumonia, unspecified organism Status: Acute Assessment and Plan: according to the , this is a chronic problem which has been treated by Pulmonary here. He has just recently been on antibiotics for a pulmonary infection with Klebsiella (4) Dementia: Qualifiers: Dementia type: unspecified type Dementia behavioral disturbance: without behavioral disturbance Qualified Code(s): F03.90 - Unspecified dementia without behavioral disturbance Code(s): F03.90 - Unspecified dementia, unspecified severity, without behavioral disturbance, psychotic disturbance, mood disturbance, and anxiety Status: Chronic (5) Paroxysmal atrial fibrillation: Code(s): I48.0 - Paroxysmal atrial fibrillation Status: Chronic Assessment and Plan: not anticoagulated but on aspirin once daily (6) Mycobacterial disease, pulmonary: Code(s): A31.0 - Pulmonary mycobacterial infection Status: Acute Assessment and Plan: I had a long discussion with the patient's . She was frustrated by which she feels is an over reaction to treat acute pneumonia when she has been told that he has a chronic pulmonary infection. He is followed by Pulmonary. She does hope to get these issues resolved particularly his diarrhea. I told her that in the next few days we will perform a sigmoidoscopy or colonoscopy GI Consult Note Consult date/time: 03/14/22 11:00 HPI: Edin Nguyen is a 81 year old male Who has had several hospitalizations and in fact was just discharged 1 week ago after treatment for pneumonia. His states that he actually has a chronic pulmonary infection and she sees a right of way buyer year. She was frustrated by the fact that the staff here tends to over react when they see him and want to treat what seems to be acute pneumonia. The reason he came to the emergency room was because he has been coughing more and has been less responsive. The patient states that he has had liquid stools for the past week. She is not surprised, because he has been on so many different antibiotics. 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 At home he uses Dulcolax and/or MiraLax to stay regular. His last colonoscopy was 2007. Prior to that he had a small polyp removed. He has not had blood in his stools. CT scan of the abdomen here shows: Bibasilar dependent atelectasis/consolidation. Small bilateral effusions, both increased since the prior study. Small bowel ileus or obstruction. Possible fecal impaction/constipation. Rectal wall thickening, consider nonemergent referral to evaluate for rectal mass. Review of Systems Review of Systems: All systems reviewed & are unremarkable except as noted in HPI and below [facility] Past Medical History Medical History Acute appendicitis with generalized peritonitis, without gangrene or abscess Acute hyperkalemia KAT (acute kidney injury) Arthritis Bilateral hydronephrosis Causing outlet obstruction and KAT
--- NOTE | 2022-03-14 13:22 | PM.IMPN ---
Progress Note: A&P Assessment and Plan (1) Acute respiratory failure with hypoxia: Code(s): J96.01 - Acute respiratory failure with hypoxia Status: Acute Assessment and Plan: Patient on 2L O2 chronically since last admission. Patient hypoxic so placed on a BiPAP with benefit. CT A/P showing bibasilar dependent atelectasis/consolidation with small effusions. CXR showing pulmonary edema. ABG 7.42/38/204 on BiPAP. BNP 855. His WBC 20K so started on IVF, Lasix IV and Zosyn. Sputum Cx on 03/06/22 growing ESBL Klebsiella. He also has hx of non-TB mycobacterium and COPD. Swallow study has not been performed but does not feel patient is aspirating. Will stop IV fluids. Change to Primaxin. Continue with nebulizer treatment. Pulmonary consult. Hold lasix given the soft BP. Follow up on recent cultures. (2) Pneumonia: Qualifiers: Laterality: left Lung location: lower lobe of lung Pneumonia type: due to unspecified organism Qualified Code(s): J18.9 - Pneumonia, unspecified organism Code(s): J18.9 - Pneumonia, unspecified organism Status: Acute Assessment and Plan: As above. The patient was recently treated for pneumonia with ESBL Klebsiella and was discharged with Augmentin. Urine and blood cultures are pending. WBC normal now. Check swallow evaluation. (3) Paroxysmal atrial fibrillation: Code(s): I48.0 - Paroxysmal atrial fibrillation Status: Chronic Assessment and Plan: EKG showing AFib with RVR. HR better now. he does have a hx of AFib. Continue metoprolol with parameters. Continue tele. Not on anticoagulation. Consider PE as the etiology. Will check LE dopplers. Consider CTA chest (4) Rectal mass: Code(s): K62.89 - Other specified diseases of anus and rectum Status: Acute Assessment and Plan: Patient having diarrhea and abdominal pain. Abdominal distention noted. CT scan showing atrophic pancreas, distal esophageal wall edema, diffuse SB dilation, mild distal sigmoid dilation with large volume of fecal material in the large bowel. Rectal wall thickening concerning for mass. GI has been consulted with plans for limited colonoscopy at some point. (5) Urinary tract infection: Code(s): N39.0 - Urinary tract infection, site not specified Status: Acute Assessment and Plan: UA noted. Urine culture is pending. Continue Primaxin (6) COPD (chronic obstructive pulmonary disease): Code(s): J44.9 - Chronic obstructive pulmonary disease, unspecified Status: Chronic Assessment and Plan: No wheezing. Contineu neb treatments. (7) Essential hypertension: Code(s): I10 - Essential (primary) hypertension Status: Acute Assessment and Plan: Patient's blood pressure was reviewed on 03/14 Blood pressure remains low. Will hold Lasix and put parameters on metoprolol Will continue to monitor (8) Dementia: Qualifiers: Dementia type: unspecified type Dementia behavioral disturbance: without behavioral disturbance Qualified Code(s): F03.90 - Unspecified dementia without behavioral disturbance Code(s): F03.90 - Unspecified dementia, unspecified severity, without behavioral disturbance, psychotic disturbance, mood disturbance, and anxiety Status: Chronic Assessment and Plan: Patient with dementia. Continue Aricept. Patient has had multiple hospitalization is extremely weak. He is not eating much and currently on Remeron and Megace to help with appetite. Discussion about hospice with the . Patient had been on hospice before. Patient's would want patient to be resuscitated if his heart should stop overall did not feel that she understands exactly what hospice is for. Will continue to educate. (9) BPH (benign prostatic hyperplasia): Code(s): N40.0 - Benign prostatic hyperplasia without lower urinary tract symptoms Status: Acute Assessment
[2022-03-14] MEDS: MIRTAZAPINE 30 MG TABLET PO (20:58)
[2022-03-14] MEDS: DONEPEZIL HCL 10 MG TABLET PO (20:59)
[2022-03-14] MEDS: ACETAMINOPHEN 500 MG TABLET 1000 MG PO (20:59)
[2022-03-15] VITALS (24 sets, daily range): BP systolic 103–147; BP diastolic 51–65; PULSE 68–130; RESP 17–25; TEMP 36.9–37.9; O2SAT 94–100; BMI 17.6
[2022-03-15] MEDS: IPRATROPIUM BR 0.02% INH SOLN 0.5 MG/2.5 ML VIAL 0.75 MG INHALATION ×2 (01:51→09:26)
[2022-03-15] MEDS: ALBUTEROL SULFATE NEB 2.5 MG/3 ML INH 5 MG INHALATION ×2 (01:51→09:30)
[2022-03-15 05:16] LABS: Alanine Aminotransferase 12 U/L (6-50); Albumin Level 2.5 g/dL (3.5-5.1); Alkaline Phosphatase 59 U/L (38-126); Anion Gap 6 mmol/L (8-16); Aspartate Amino Transferase 39 U/L (17-59); Bilirubin,Total 0.2 mg/dL (0.2-1.3); Blood Urea Nitrogen 35 mg/dL (9-20); Calcium 8.1 mg/dL (8.4-10.2); Carbon Dioxide 25 mmol/L (22-30); Chloride 113 mmol/L (98-107); Estimated CRCL calculation 33 ml/min; Estimated Glomerular Filt Rate > 60; Glucose 98 mg/dL (65-110); Magnesium 1.9 mg/dL (1.6-2.3); Phosphorus 2.3 mg/dL (2.5-4.5); Potassium 2.7 mmol/L (3.4-5.0); Sodium 144 mmol/L (137-145)
[2022-03-15] MEDS: LEVOTHYROXINE SODIUM 50 MCG TABLET PO (05:19)
[2022-03-15 05:20] LABS: Basophils Percent Auto 0.2 % (0.2-1.2); Eosinophils Percent Auto 0.5 % (0-4.4); Hematocrit 25.2 % (42.0-52.0); Hemoglobin 7.9 g/dL (14.0-18.0); Immature Granulocyte Absolute 0.02 K/mm3 (0.00-0.031); Immature Granulocyte Percent A 0.3 % (0-0.5); Lymphocytes Absolute Auto 0.99 K/mm3 (0.9-3.2); Lymphocytes Percent Auto 15.4 % (18.3-44.2); Mean Corpuscular HGB Conc 31.3 g/dl (32-36); Mean Corpuscular Volume 95.8 fl (80-100); Monocytes Absolute Auto 0.6 K/mm3 (0.1-0.6); Monocytes Percent Auto 9.2 % (2.6-8.5); Neutrophils Absolute Auto 4.8 K/mm3 (1.3-6.7); Neutrophils Percent Auto 74.4 % (45.5-73.1); Platelet Count Result 236 k/mm3 (150-375); Red Blood Count 2.63 M/mm3 (4.6-6.20); White Blood Count 6.4 K/mm3 (4.5-10.0)
[2022-03-15] MEDS: POTASSIUM CHLORIDE 20 MEQ TABLET 40 MEQ PO (06:15)
--- NOTE | 2022-03-15 09:27 | PCSTNOTE ---
Please refer to the Bedside Swallow Evaluation in the EMR. Please note, silent aspiration cannot be ruled out at bedside.
--- NOTE | 2022-03-15 11:24 | PCSTNOTE ---
Please refer to the Modified Barium Swallow Evaluation in the EMR.
--- NOTE | 2022-03-15 13:23 | PM.CNPUL ---
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 patient has been treated for pneumonia possibly related to Klebsiella ESBL as patient grew the bacteria from sputum 9 days ago. chest imaging studies have not shown clear-cut evidence of new infiltrates that would indicate a nosocomial pneumonia. On admission his urinalysis showed many wbc's which could indicate untreated urinary tract infection being the cause of acute mental status changes/sepsis. The patient was initially treated with Zosyn with significant clinical improvement and return of WBC back to normal range. He was started on imipenem today for better coverage for Klebsiella ESBL. We will proceed with a chest CT to rule out pneumonia. In the absence of new infiltrates on CXR, it is likely that the Klebsiella ESBL grown from sputum 9 days ago is a merely colonizer. the patient had many wbc's in the urine, which raises the possibility that UTI is the cause of new sepsis. The patient had documented urinary tract infection for which he underwent urological procedure and antibiotic treatment. on the last abdominal CT, there is evidence of a caliectasis unchanged from previous study. in view of presence of many wbc's in the urine is likely that the urinary tract infection is partially treated with the possibility of developing resistant bacteria. Regarding bilateral pleural effusions it is possible that these are related to fluid overload /congestive heart failure as patient has received IV fluids during the multiple hospitalizations over the last 2 months. Review of his previous records also show that he had anasarca. He was given IV diuretic on admission. I would continue with gentle diuresis. Further recommendations following a chest CT. (2) Pneumonia: Qualifiers: Laterality: left Lung location: lower lobe of lung Pneumonia type: due to unspecified organism Qualified Code(s): J18.9 - Pneumonia, unspecified organism Code(s): J18.9 - Pneumonia, unspecified organism Status: Acute (3) Bilateral hydronephrosis: Code(s): N13.30 - Unspecified hydronephrosis Status: Acute (4) Mycobacterial infection, non-TB: Code(s): A31.9 - Mycobacterial infection, unspecified Status: Acute Assessment and Plan: The patient has been diagnosed with atypical mycobacterial infection approximately 3 years ago. His chest imaging studies have been showing bilateral upper lobe cavitary infiltrates with some calcifications. Review of 2 chest CTs done since August of 2021 have shown no significant progression of a chronic infiltrates. In the past the patient had received treatment with for antibiotics for atypical mycobacterial infection for short period of time only as patient was made hospice care and the antibiotics were discontinued. I have had many discussions with the patient's about the need to treat the chronic mycobacterial infection with antibiotics. Given his multiple medical problems and after discussion with the it was decided to of rather observe him and not pursue treatment for atypical mycobacterial infection at this point. At at some point in the recent past the patient's was thinking about re instituting hospice care. (5) Dementia: Qualifiers: Dementia behavioral disturbance: without behavioral disturbance Dementia type: unspecified type Qualified Code(s): F03.90 - Unspecified dementia without behavioral disturbance Code(s): F03.90 - Unspecified dementia, unspecified severity, without behavioral disturbance, psy
--- NOTE | 2022-03-15 14:42 | SUR.OPER ---
Procedure completed with no sedation given. Patient reports no pain. Report given to Miguel GALVAN. CT is wanting to take patient from GI per Miguel. Henry GALVAN is transporting patient from GI to CT.
--- NOTE | 2022-03-15 17:15 | PM.IMPN ---
Progress Note: A&P Assessment and Plan (1) Acute respiratory failure with hypoxia: Code(s): J96.01 - Acute respiratory failure with hypoxia Status: Acute Assessment and Plan: Patient on 2L O2 chronically since last admission. Patient was hypoxic so placed on a BiPAP with benefit. CT A/P showing bibasilar dependent atelectasis/consolidation with small effusions. CXR showing pulmonary edema. ABG 7.42/38/204 on BiPAP. BNP 855. His WBC 20K so started on IVF, Lasix IV and Zosyn. Sputum Cx on 03/06/22 growing ESBL Klebsiella so abx changed to Primaxin. He also has hx of non-TB mycobacterium and COPD. Swallow study showing he can swallow safely. Continue with nebulizer treatment. Pulmonary following. (2) Pneumonia: Qualifiers: Laterality: left Lung location: lower lobe of lung Pneumonia type: due to unspecified organism Qualified Code(s): J18.9 - Pneumonia, unspecified organism Code(s): J18.9 - Pneumonia, unspecified organism Status: Acute Assessment and Plan: As above. The patient was recently treated for pneumonia with ESBL Klebsiella in sputum. He was discharged with Augmentin. UCx negative. BCx NGTD. WBC normal now but now having low grade fevers. Follow. CT chest repeated with results pending. (3) Paroxysmal atrial fibrillation: Code(s): I48.0 - Paroxysmal atrial fibrillation Status: Chronic Assessment and Plan: EKG showing AFib with RVR. HR better now. he does have a hx of AFib. Not on anticoagulation. LE dopplers negative for DVT. Consider CTA chest. Continue metoprolol with parameters. Continue tele. (4) Rectal mass: Code(s): K62.89 - Other specified diseases of anus and rectum Status: Acute Assessment and Plan: Patient having diarrhea and abdominal pain. Abdominal distention noted. CT scan showing atrophic pancreas, distal esophageal wall edema, diffuse SB dilation, mild distal sigmoid dilation with large volume of fecal material in the large bowel. Rectal wall thickening concerning for mass. GI was consulted with limited colonoscopy performed today. A partially obstructing nodular mass in the rectum was noted. Biopsies taken. was made aware. Follow up on biopsy results. (5) COPD (chronic obstructive pulmonary disease): Code(s): J44.9 - Chronic obstructive pulmonary disease, unspecified Status: Chronic Assessment and Plan: No wheezing. Contineu neb treatments. (6) Essential hypertension: Code(s): I10 - Essential (primary) hypertension Status: Acute Assessment and Plan: Patient's blood pressure was reviewed on 03/15 Blood pressure remains low. Will hold Lasix and put parameters on metoprolol Will continue to monitor (7) Dementia: Qualifiers: Dementia behavioral disturbance: without behavioral disturbance Dementia type: unspecified type Qualified Code(s): F03.90 - Unspecified dementia without behavioral disturbance Code(s): F03.90 - Unspecified dementia, unspecified severity, without behavioral disturbance, psychotic disturbance, mood disturbance, and anxiety Status: Chronic Assessment and Plan: Patient with dementia. Continue Aricept. Patient has had multiple hospitalization is extremely weak. He is not eating much and currently on Remeron and Megace to help with appetite. Follow (8) BPH (benign prostatic hyperplasia): Code(s): N40.0 - Benign prostatic hyperplasia without lower urinary tract symptoms Status: Acute Assessment and Plan: Quiroz secured. Has a hx of hydronephrosis and bilateral ureteral stents in place. CT scan shows stent in good position. Proscar and Flomax resumed. Urology consulted to see if appropriate time to remove stents. Remove Quiroz when okay with urology. (9) Hypothyroid: Qualifiers: Hypothyroidism type: unspecified Qualified Code(s): E03.9 - Hypothyroidism, unspecified Code(s):
--- NOTE | 2022-03-15 18:40 | PC.NURSE ---
Patient refusing all medications. Multiple attempts at administration and education on medications and their use, and the patient continued to refuse. Family and MD aware.
[2022-03-15] MEDS: DONEPEZIL HCL 10 MG TABLET PO (20:43)
[2022-03-15] MEDS: SENNOSIDES 8.6 MG TABLET 17.2 MG PO (20:43)
[2022-03-15] MEDS: MEGESTROL ACETATE (*CHEMO) 40 MG TABLET PO (20:43)
[2022-03-15] MEDS: ACETAMINOPHEN 500 MG TABLET 1000 MG PO (20:44)
[2022-03-15] MEDS: methADONE HCL (*CRX) 10 MG TABLET PO (20:44)
[2022-03-15] MEDS: MIRTAZAPINE 30 MG TABLET PO (20:44)
[2022-03-15 21:03] LABS: Appearance Urine Clear (Clear); Bilirubin Urine Negative (Negative); Blood Urine 2+ (Negative); Color Urine Yellow (Yellow); Glucose Urine UA Negative (Negative); Ketones Urine Negative (Negative); Leukocyte Esterase Ur Negative LEU/UL (NEGATIVE); Nitrate Urine Negative (Negative); Protein Urine 2+ mg/dL (Negative); Urobilinogen Urine 0.2 mg/dL (<2.0)
[2022-03-15 21:21] LABS: RBC Urine >75 /hpf (0-2)
[2022-03-15 21:24] LABS: Add Urine Microscopic? YES
[2022-03-15] MEDS: HYDROmorphone HCL INJ (*CRX) 1 MG/ML SYR 0.5 MG IV PUSH (23:15)
--- NOTE | 2022-03-15 23:50 | PCRCNOTE ---
Window of time for administration has passed. See next scheduled administration.
[2022-03-16] VITALS: BP 138/76; PULSE 140; PULSE 150; RESP 20; TEMP 37; O2SAT 94
[2022-03-16 00:20] VITALS: PULSE 150
[2022-03-16] MEDS: METOPROLOL TARTRATE INJ 5 MG/5 ML VIAL IV PUSH (00:20)
[2022-03-16] MEDS: LORazepam INJ (*CRX) 2 MG/ML VIAL 0.5 MG IV PUSH (00:20)
[2022-03-16 02:00] VITALS: PULSE 96
[2022-03-16 02:50] LABS: Glucose Point of Care 92 mg/dl (65-105)
--- NOTE | 2022-03-16 03:25 | PC.NURSE ---
At 0233 pt's heart rate dropped to 30's. rn ran to pt's room and found pt. unresponsive. No pulse was able to attain and david arriaga was called. See code blue sheet for futher information. Pt. at 0246
--- NOTE | 2022-03-16 08:15 | ED.CPR ---
HPI - CPR General Chief Complaint: Abdominal Pain Stated Complaint: ABD PAIN WITH DISTENTION Source: patient, family and EMS Mode of arrival: EMS Limitations: no limitations History of Present Illness HPI narrative: Overhead code noted at 02:35. On arrival CPR was in progress. Nursing staff noted patient became bradycardic and lost pulses with initial rhythm of PEA. Related Data Home Medications Medication Instructions Recorded Confirmed vit C 250 mg-vit E 90 mg-zinc 40 2 tablet PO BID 04/29/19 03/13/22 mg-copper 1 is-dtrqca-hsbhoy capsule (PreserVision AREDS-2) levothyroxine 50 mcg tablet 50 mcg PO DAILY 11/27/21 03/13/22 acetaminophen 500 mg tablet 1,000 mg PO HS 02/02/22 03/13/22 polyethylene glycol 3350 17 gram 17 g PO DAILY 02/11/22 03/13/22 oral powder packet (Miralax) Allergies Allergy/AdvReac Type Severity Reaction Status Date / Time Antihistamines - Alkylamine Allergy Unknown Verified 03/15/22 13:43 Review of Systems Review of Systems: Unable to obtain review of systems due to cardiopulmonary arrest [facility] Past Medical History Medical History Acute appendicitis with generalized peritonitis, without gangrene or abscess Acute hyperkalemia KAT (acute kidney injury) Arthritis Bilateral hydronephrosis Causing outlet obstruction and KAT 01/2022, s/p bilateral ureteral stents BPH (benign prostatic hyperplasia) Colitis Depression with anxiety Edema Essential hypertension History of stent insertion of renal artery Hypernatremia Hypothyroid Mycobacterial infection, 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 Uses walker for ambulation. Previously on hospice, revoked in Feb 2021. His PCP is Dr. Valdez. His , Deyanira, is his surrogate decision maker. He has 3 children. He is retired. Code status full code. Smoking packs per day: 2 Smoking cigarettes per day: 40.0 Years smoked: 62 Smoking pack-years: 124.00 Smoking status: Heavy tobacco smoker Tobacco type: cigarettes Second hand tobacco smoke exposure: Yes Alcohol intake: former Substance use: never Substance use type: does not use Lack of Transportation: No Lack of Food: Never True Current Housing: I Have Housing Concerned About Future Housing: No Difficulty Paying Gas/Electric Bills: No Difficulty Paying for Meds: No Currently Unemployed: No Education: High School Diploma/GED Difficulty w/ Childcare or Family Care: No Spiritual care concerns: No Exam Narrative: GENERAL: Well-developed, cachectic, unresponsive HEAD: Normocephalic, atraumatic. EYES: Pupils fixed and 4 mm bilaterally ENT: Patient being actively bagged CHEST: Coarse breath sounds bilaterally with bagging. HEART: Palpable pulse with compressions, otherwise pulseless ABDOMEN: Soft, patient unresponsive unabl
[2022-03-16 23:04] LABS: Pneumococcal Antigen Urine Not Detected (Not Detected)
[2022-03-18 17:11] LABS: Legionella pneumophila Ag Ur Not Detected (Not Detected)
--- NOTE | 2022-03-24 06:57 | PM.DDS ---
Discharge Summary Date and Time Date of : 03/16/22 Time of : 02:46 Provider Pronounced By: dr juarez Probable Cause of Probable Cause of : Sudden cardiac Summary Hospital Course: Patient presents with shortness of breath. He is on 2L O2 chronically since last admission. Patient was hypoxic on admission so placed on a BiPAP with benefit. CT A/P showing bibasilar dependent atelectasis/consolidation with small effusions. CXR showing pulmonary edema. ABG 7.42/38/204 on BiPAP. BNP 855. His WBC 20K so started on Zosyn. Sputum Cx on 03/06/22 growing ESBL Klebsiella so abx changed to Primaxin. He also has hx of non-TB mycobacterium and COPD. Swallow study showing he can swallow safely. Pulmonary consulted. BCx NGTD. WBC normalized but then having low grade fevers.? Patient having diarrhea and abdominal pain. Abdominal distention noted. CT scan showing atrophic pancreas, distal esophageal wall edema, diffuse SB dilation, mild distal sigmoid dilation with large volume of fecal material in the large bowel. Rectal wall thickening concerning for mass. GI was consulted and a limited colonoscopy performed. A partially obstructing nodular mass in the rectum was noted. Biopsies taken. was made aware. In the subsea engineer hours, patient's heart rate dropped in to the 30's. RN entered the room and found the patient unresponsive and a Code Blue called. Resuscitation attempted but patient did not respond and at 0246. Additional Data Confirmation of as documented by pronouncing clinician: Pupillary Reflex, Palpable Pulses, Response to Stimuli, Heart Tones and Breath Sounds Name of Provider Notified: dr ilm Time Provider Notified: 02:46 Provider Requests Autopsy: No Family Requests Autopsy: No Factory Helper Notified: Yes Date [facility] Notified of : 03/16/22 Time [facility] Notified of : 03:11
== END 2022-03-16 02:46 | disposition expired | DRG 393 ==
LOC: ANHED 17:14 → ANHIMU 20:40
PROVIDERS: Internal Medicine Gastroenterology; Internal Medicine Pulmonary Disease; Nurse Practitioner; Admitting Provider Student in an Organized Health Care Education/Training Program; Emergency Provider Emergency Medicine; PCP Family Medicine Adolescent Medicine; Visit Provider Internal Medicine
PROC: 0DJD8ZZ Inspection of Lower Intestinal Tract, Via Natural or Artificial Opening Endoscopic (ICD-10-PCS; CPT 45330; principal; 2022-03-15 15:15)
DX: D12.8 Benign neoplasm of rectum (principal); J18.9 Pneumonia, unspecified organism; J96.21 Acute and chronic respiratory failure with hypoxia; J44.0 Chronic obstructive pulmonary disease with (acute) lower respiratory infection; N13.30 Unspecified hydronephrosis; I46.9 Cardiac arrest, cause unspecified; R00.1 Bradycardia, unspecified; E03.9 Hypothyroidism, unspecified; F32.A Depression, unspecified; F17.210 Nicotine dependence, cigarettes, uncomplicated; F41.1 Generalized anxiety disorder; F03.90 Unspecified dementia, unspecified severity, without behavioral disturbance, psychotic disturbance, mood disturbance, and anxiety; G25.0 Essential tremor; I10 Essential (primary) hypertension; I48.0 Paroxysmal atrial fibrillation; K59.09 Other constipation; M85.80 Other specified disorders of bone density and structure, unspecified site; M19.90 Unspecified osteoarthritis, unspecified site; N40.0 Benign prostatic hyperplasia without lower urinary tract symptoms; N28.89 Other specified disorders of kidney and ureter; R60.0 Localized edema; R19.7 Diarrhea, unspecified; Z20.822 Contact with and (suspected) exposure to COVID-19; Z90.49 Acquired absence of other specified parts of digestive tract; Z96.0 Presence of urogenital implants; Z79.82 Long term (current) use of aspirin; Z87.01 Personal history of pneumonia (recurrent); Z99.81 Dependence on supplemental oxygen; Z86.19 Personal history of other infectious and parasitic diseases; Z53.29 Procedure and treatment not carried out because of patient's decision for other reasons
CPT/HCPCS: 31500; 36415; 36600; 51701; 71045; 71250; 74177; 80048; 80053; 81001; 82805; 82948; 83605; 83735; 83880; 84100; 85025; 87040; 87045; 87086; 87385; 87427; 87449; 87636; 87637; 87899; 88305; 89055; 92610; 92611; 92950; 93005; 93970; 94002; 94003; 94640; 96361; 96374; 99285; A9270; J0171; J0743; J1160; J1170; J1650; J1940; J2060; J2405; J2543; J7030; Q9967